=== PATIENT | female | born 1935 | race Caucasian/White ===

== ENCOUNTER → 2016-11-13 | Outpatient (CLI) | payer OTHER ==
[~2016-11-13] MED LIST: ASPCH81; ATEN-173 PO; DILT120C68 PO; PRAV20TA PO; SYN50 PO; WARF5TAB90 PO
--- NOTE | 2016-11-13 10:32 | DIAGNOSTIC IMAGING REPORT ---
CHEST 2 VIEWS ROUTINE CLINICAL HISTORY: Left lower lobe pulmonary nodule COMPARISON STUDY: 08/06/2016 FINDINGS: The heart is borderline enlarged. There is no failure. There is no focal pulmonary consolidation. The previously queried nodule at the level the left cardiophrenic angle is not visualized.[ IMPRESSION: No active disease in the chest. Electronically signed by: Shant Espinoza M.D. 11/13/2016 10:31 AM Dictated Date/Time: 11/13/2016 10:30 AM
== END | disposition home or self-care (01) ==
LOC: C.RAD 10:07
PROVIDERS: ATTEND Family Medicine
DX: R93.8 Abnormal findings on diagnostic imaging of other specified body structures (principal)

== ENCOUNTER → 2017-02-27 | Outpatient (CLI) | payer OTHER ==
[~2017-02-27] MED LIST changes: +ASPI81TA28 PO; +ATEN25TA PO; +LEVO50TA PO; +TNR25 PO; -WARF5TAB90 PO
== END | disposition home or self-care (01) ==
LOC: C.MAMM 09:07
PROVIDERS: ATTEND Physician Assistant
DX: N18.9 Chronic kidney disease, unspecified (principal); M85.851 Other specified disorders of bone density and structure, right thigh; M85.852 Other specified disorders of bone density and structure, left thigh

== ENCOUNTER → 2017-03-05 | Outpatient (CLI) | payer OTHER ==
[~2017-03-05] MED LIST changes: -TNR25 PO
--- NOTE | 2017-03-05 16:08 | MAMMOGRAPHY REPORT ---
BILATERAL DIGITAL SCREENING MAMMOGRAM TOMOSYNTHESIS WITH CAD: 03/05/2017 CLINICAL HISTORY: Asymptomatic. Personal history of breast cancer. TECHNIQUE: Breast tomosynthesis in addition to standard 2D mammography was performed. Current study was also evaluated with a Computer Aided Detection (CAD) system. COMPARISON: Comparison is made to exams dated: 11/13/2015 mammogram, 08/22/2014 mammogram, 08/20/2013 mammogram, 08/10/2012 mammogram, 02/04/2012 mammogram, and 07/16/2011 mammogram - [facility]. BREAST COMPOSITION: The tissue of both breasts is heterogeneously dense, which may obscure small mas ses. FINDINGS: No suspicious masses, calcifications, or areas of architectural distortion are noted in ei ther breast. There has been no significant interval change compared to prior exams. There are stable postsurgical changes in the right upper outer quadrant from prior lumpectomy, including stable densi ty, architectural distortion, and surgical clips at the lumpectomy bed. A linear scar marker denotes a scar on the right upper outer breast. Bilateral benign-appearing calcifications are not significa ntly changed. Small round circumscribed benign-appearing mass in the left upper outer quadrant is pr ogressively smaller compared to prior exams, and is therefore benign. IMPRESSION: ACR BI-RADS CATEGORY 2: BENIGN There is no mammographic evidence of malignancy. A 1 year screening mammogram is recommended. The pa tient will receive written notification of the results. Approximately 10% of breast cancers are not detected with mammography. A negative mammographic report should not delay biopsy if a clinically suggestive mass is present. Tabatha Palomares M.D. /:03/05/2017 15:12:38 Offset Printing Operator: Becky MONAHAN)(M), [facility] letter sent: Normal 1/2 BI-RADS Code: ACR BI-RADS Category 2: Benign
== END | disposition home or self-care (01) ==
LOC: C.MAMM 13:34
PROVIDERS: ATTEND Physician Assistant
DX: Z12.31 Encounter for screening mammogram for malignant neoplasm of breast (principal); Z08 Encounter for follow-up examination after completed treatment for malignant neoplasm; Z85.3 Personal history of malignant neoplasm of breast

== ENCOUNTER 2017-06-18 05:16 | Inpatient (IN) | payer OTHER ==
[~2017-06-18] VITALS: Ht 154.9 cm; Wt 62.1 kg
[~2017-06-18 05:16] MED LIST changes: -ASPI81TA28 PO; -ATEN25TA PO; -LEVO50TA PO
[2017-06-18] MEDS ORDERED: SODIUM CHLORIDE 0.9% 1000ML 1,000 ML IV STA (05:35)
[2017-06-18] MEDS ORDERED: LEVO50TA PO (05:50)
[2017-06-18] MEDS ORDERED: ASPI81TA28 PO (05:50)
[2017-06-18] MEDS ORDERED: ATEN25TA PO (05:50)
[2017-06-18 05:55] LABS: BASO % 0.3 %; BASO ABS # 0.03 K/uL (0-0.2); COMPLETE YES; HEMATOCRIT 45.3 % (37-47); IG% 0.2 %; LYMPH % 26.7 %; LYMPH ABS # 3.02 K/uL (1.2-3.4); MEAN CELL VOLUME 93.4 fL (80-100); MEAN CORPUSCULAR HEMOGLOBIN 31.1 pg (25-34); MEAN CORPUSCULAR HGB CONC 33.3 g/dl (32-36); MEAN PLATELET VOLUME 10.4 fL (7.4-10.4); MONO % 10.7 %; NEUT % 61.1 %; PLATELET COUNT 255 K/uL (130-400); RED BLOOD COUNT 4.85 M/uL (4.2-5.4); WHITE BLOOD COUNT 11.29 K/uL (4.8-10.8)
[2017-06-18 06:04] LABS: INR 1.1 (0.9-1.1); PROTHROMBIN TIME (PATIENT) 11.3 SECONDS (9.0-12.0)
[2017-06-18 06:11] LABS: BUN/CREATININE RATIO 11.2 (10-20); CALCIUM 9.2 mg/dl (8.5-10.1); CREATININE 0.99 mg/dl (0.60-1.20); MAGNESIUM 2.4 mg/dl (1.8-2.4); POTASSIUM 4.5 mmol/L (3.5-5.1)
[2017-06-18 06:21] LABS: ALB/GLOB RATIO 0.7 (0.9-2); THYROID STIMULATING HORMONE 2.19 uIu/ml (0.300-4.500)
--- NOTE | 2017-06-18 07:28 | DIAGNOSTIC IMAGING REPORT ---
CHEST ONE VIEW PORTABLE HISTORY: palpitations COMPARISON: None. FINDINGS: The lungs are clear. Cardiac silhouette is normal in size. No pleural effusions. No pneumothorax. IMPRESSION: No acute process. Electronically signed by: Sebastien Gould M.D. 06/18/2017 7:26 AM Dictated Date/Time: 06/18/2017 7:24 AM
[2017-06-18 08:17] VITALS: O2SAT 95; Ht 154.9 cm; Wt 62.1 kg
[2017-06-18] MEDS ORDERED: MAGNESIUM HYDROXIDE SUSP 30 ML UDC PO PRN (08:30)
[2017-06-18] MEDS ORDERED: POLYETHYLENE (MIRALAX) 17 GM PACK PO PRN (08:30)
[2017-06-18] MEDS ORDERED: ONDANSETRON INJ 2 MG/ML 2 ML VIAL IV PRN (08:30)
[2017-06-18] MEDS ORDERED: ZOLPIDEM TARTRATE 5 MG TAB PO PRN (08:30)
[2017-06-18] MEDS ORDERED: ALUMINUM/MAGNESIUM/SIMETH (MAALOX MAX) 30 ML UDC PO PRN (08:30)
--- NOTE | 2017-06-18 08:32 | History and Physical ---
History & Physical Date of Service Jun 18, 2017. History & Physical tachy [id number]
[2017-06-18] MEDS: LEVOTHYROXINE 50 MCG TAB PO SCH (09:00)
[2017-06-18] MEDS: PRAVASTATIN SOD 20 MG TAB PO SCH (09:00)
--- NOTE | 2017-06-18 09:01 | HISTORY & PHYSICAL EXAMINATION ---
DATE OF ADMISSION: 06/18/2017 This is level 2 inpatient admission, 29 minutes. CHIEF COMPLAINT: Palpitation and dyspnea on exertion. HISTORY OF PRESENT ILLNESS: The patient is an 82-year-old white female with a significant past medical history of paroxysmal atrial fibrillations, mitral valve prolapse, hypothyroidism, dyslipidemia, coming to the hospital Emergency Department because of the above chief complaint. She reported has persistent rapid heart beating from last night at 7:00 p.m. It was started while she was watching TV. She had the problem before. History of atrial fibrillations. She had echocardiogram and Holter monitor evaluations with grades 1 6 tutor, Dr. Sin. The patient reported has shortness of breath with exertion for a couple weeks. Some nausea, lightheadedness and mild dizzy. For now, she does not have any dizziness or chest pain, no shortness of breath. No racing heart for now. In the Emergency Room, she was found heart rate sometimes getting higher. The highest was up to 152. The lowest down to the 48. She was found to have possible tachybrady syndrome. Hospitalist requested to see the patient. The patient has elevated troponin 0.41 as well. The patient denied fever or chills. Denied cough, sputum, shortness of breath. Denied chest pain. Denied lower extremity swellings. Denied nausea, vomiting, abdominal pain, diarrhea, or constipation. Denied dysuria, urgency and frequencies. Denied skin rashes. ALLERGIES: ALLERGY TO CODEINE AND EPINEPHRINE. PAST MEDICAL HISTORY: Like I mentioned in the above, paroxysmal atrial fibrillations, mitral valve prolapse, dyslipidemia, hypothyroidism. FAMILY HISTORY: Include heart disease. SOCIAL HISTORY: Never smoked. Denied alcohol abuse disorder, denied illicit drug abuse. The patient is and lives with family. Retired. REVIEW OF SYSTEMS: Please see HPI, otherwise 14 points organized system review were negative. MEDICATIONS: Taking at home include aspirin 81 mg p.o. daily, levothyroxine 50 mcg p.o. daily, pravastatin 20 mg p.o. daily, atenolol 12.5 mg p.o. p.r.n. for increased heart rate. PHYSICAL EXAMINATION: VITAL SIGNS: Temperature is 36.5, pulse highest was up to 152, lowest at 48. Respiratory rate was 20. Blood pressure was 98/75. Pulse ox was 99% in room air. GENERAL: The patient is a white female, awake, alert and orientated, pleasant, conversational, follows all commands. HEAD: Normocephalic. EYES: Pupils equal, round responds to light. EARS: Ear was normal. NOSE: Normal. NECK: Supple. Thyroid no enlargement. Trachea midline. HEART: Regular rhythm but is bradycardia now. Heart rate at 42. No murmur. LUNGS: Decreased breathing sounds. There was no wheezing, rhonchi or crackles. ABDOMEN: Soft, nontender. Bowel sound was positive. GENITOURINARY AND RECTAL: Deferred. BILATERAL LOWER EXTREMITIES: No swelling. Homans sign was negative. Calf was nontender. There was no clubbing, no cyanosis. SKIN: Has no rashes. PSYCHIATRY EVALUATION: No depression or anxiety. LABORATORY STUDIES: Which was done in the Emergency Room which include WBC 11.2, hemoglobin 15, platelet 255. Sodium 139, potassium 4.5, BUN 11, creatinine 0.9. Blood glucose 119. IMAGING STUDIES: Chest x-ray no cardiomegaly, no effusions, no pulmonary edema. EKG: Heart rate was 65. Nonspecific ST changes, has PVC. ASSESSMENT AND PLAN: An 82-year-old white female with the problems below: 1. Tachycardia, atrial fibrillation and bradycardia, possible tachybrady syndrome. 2. History of paroxysmal atrial fibrillation. 3. Elevated troponin likely from demanding ischemia. 4. History of hypothyroidism. 5. History of dyslipidemia. PLAN: We will be admitted to hospital tele monitor. I discussed with Dr. Mack. Do not need anticoagulation now, okay n.p.o. midnight, may plan pacemaker tomorrow. Will continue to follow up cardiac enzymes, troponin for 1 set more, tele monitoring, hold beta daisy, continue home medication include aspirin, levothyroxine and dyslipidemia. Because of possible procedure tomorrow I will hold aspirin as well. TSH was checked which is in normal range 2.19. PT/INR was checked was 07/09.1. I discussed with patient and family about the care plan. GI and DVT prophylaxis is ordered. Discussed with the code status, PATIENT WANTS TO BE FULL CODE, but if has no hope she does not want to have prolonged life care. MTDD
[2017-06-18 09:38] LABS: MANUAL MICROSCOPIC REQUIRED? NO; REVIEW REQ? NO; URINE APPEARANCE CLEAR (CLEAR); URINE BILIRUBIN NEG (NEG); URINE COLOR YELLOW; URINE EPITHELIAL CELL AUTO >30 /lpf (0-5); URINE NITRITE NEG (NEG); URINE PH 7.5 (4.5-7.5); UROBILINOGEN NEG (NEG); ZZUR CULT IF INDIC CLEAN CATCH NO
--- NOTE | 2017-06-18 10:59 | Cardiology Consultation ---
Cardiology Consultation Date of Consultation: Jun 18, 2017. Requesting Physician: Juana Reason for Consultation: tachycardia History of Present Illness Patient is an 82-year-old woman with a history of atrial fibrillation and SVT who presented to [facility] Emergency room early this morning with symptoms of tachycardia and dizziness. Patient states that for nearly 8 hours she noticed her heart racing. This is generally associated with a sense of dizziness and occasionally presyncope. Due to the persistent nature of the symptoms she presented for evaluation was noted to be tachycardic. She did have resolution of her tachycardia emergency room with some additional dizziness and presyncope. Patient has been having fairly frequent episodes of this nature recently. He states that due to mitral valve prolapse she has had symptoms of this nature since she was a teenager. Generally speaking they occur several times per year and her very brief in duration. More recently they have become more frequent and sustained. An episode lasting 8 hours such as last evening is the longer she can recall. She reports some associated tightness in her throat as if she was breathing cold air. She denies any actual chest discomfort. She denies significant dyspnea or breathing trouble. She was admitted to [facility] in May of 2017 after suffering an episode of syncope. This occurred while she was standing in her son's kitchen. She does recall a sense tachycardia leading up to that event and her evaluation at that facility did reveal episodes of atrial fibrillation in addition to baseline bradycardia. General she is an active individual. She is accustomed performing routine housework and gardening. She generally denies symptoms of dizziness or lightheadedness in the absence of the tachycardia. She denies symptoms of chest pain or dyspnea. She has no new exertional limitations. Past Medical/Surgical History Paroxysmal atrial fibrillation Supraventricular tachycardia Breast cancer Hyperlipidemia Hypertension Hypothyroidism Mitral regurgitation Syncope Past surgical history Partial colectomy Family History Heart disease Noncontributory Social History Smoking Status: Never Smoker History of Alcohol Use: No Currently lives independently. of metastatic melanoma Review of Systems A recent gastrointestinal symptoms. No constitutional symptoms such as fevers or chills. No recent viral illnesses. All Other Systems: Reviewed and Negative Allergies Coded Allergies: Codeine (Verified Allergy, Intermediate, NAUSEA/VOMITING, 06/18/17) Epinephrine (Verified Allergy, Unknown, 06/18/17) Medications Current Inpatient Medications Medications (Trade) Dose Ordered Sig/Sal Route Start Time Stop Time Status Last Admin Dose Admin Sodium Chloride 1,000 ml @ 125 mls/hr Q8H STAT IV 06/18/17 05:35 06/18/17 13:34 06/18/17 05:35 125 MLS/HR Heparin Sodium (Porcine) (Heparin Sq 5000 Unit/0.5ml) 5,000 unit Q12 SQ 06/18/17 09:00 07/18/17 08:59 UNV Acetaminophen (Tylenol Tab) 650 mg Q4H PRN PO 06/18/17 08:30 07/18/17 08:29 Al Hydrox/Mg Hydrox/Simethicone (Maalox Max Susp) 15 ml Q4H PRN PO 06/18/17 08:30 07/18/17 08:29 Magnesium Hydroxide (Milk Of Magnesia Susp) 30 ml Q12H PRN PO 06/18/17 08:30 07/18/17 08:29 Zolpidem Tartrate (Ambien Tab) 5 mg HSZ PRN PO 06/18/17 08:30 07/18/17 08:29 Ondansetron HCl (Zofran Inj) 4 mg Q6H PRN IV 06/18/17 08:30 07/18/17 08:29 Polyethylene (Miralax Powder Packet) 17 gm DAILY PRN PO 06/18/17 08:30 07/18/17 08:29 Levothyroxine Sodium (Synthroid Tab) 50 mcg DAILYBB PO 06/18/17 09:00 07/18/17 08:59 Pravastatin Sodium (Pravachol Tab) 20 mg DAILY PO 06/18/17 09:00 07/18/17 08:59 Physical Exam Vital Signs Past 12 Hours Date Time Temp Pulse Resp B/P (MAP) Pulse Ox O2 Delivery O2 Flow Rate FiO2 06/18/17 09:46 45 06/18/17 08:46 43 06/18/17 08:17 95 Room Air 06/18/17 08:08 45 20 133/70 95 Room Air 06/18/17 07:00 56 20 115/80 94 Room Air 06/18/17 06:12 48 06/18/17 06:05 51 06/18/17 05:33 152 06/18/17 05:33 67 06/18/17 05:29 146 06/18/17 05:21 36.5 144 20 98/75 99 Room Air The patient is alert and oriented. Mood and affect appeared normal. He answered all questions appropriately. HEENT: Pupils are equal and reactive to light and accommodation. Extraocular movements are intact. The sclerae are anicteric. Neuro: Cranial nerves intact Neck: Patient's neck is supple. He has palpable carotid pulses bilaterally without bruits on auscultation. There is no evidence of jugular venous distention. The thyroid is not enlarged. Lungs: Clear to auscultation bilaterally. He has good air movement without use of accessory muscles. No rales wheezes or rhonchi. Cardiac: Heart demonstrates a regular rate and rhythm. Normal S1 and S2. Soft holosystolic murmur. Pulses: The patient has palpable radial pulses bilaterally that are equal in intensity Extremities: There was no evidence of hypoperfusion. There is no cyanosis or clubbing. There is no edema. Skin: I did not appreciate any rashes on examination today. Data Laboratory Results: Last 24 Hours Test 06/18/17 05:35 06/18/17 09:20 White Blood Count 11.29 K/uL Red Blood Count 4.85 M/uL Hemoglobin 15.1 g/dL Hematocrit 45.3 % Mean Corpuscular Volume 93.4 fL Mean Corpuscular Hemoglobin 31.1 pg Mean Corpuscular Hemoglobin Concent 33.3 g/dl Platelet Count 255 K/uL Mean Platelet Volume 10.4 fL Neutrophils (%) (Auto) 61.1 % Lymphocytes (%) (Auto) 26.7 % Monocytes (%) (Auto) 10.7 % Eosinophils (%) (Auto) 1.0 % Basophils (%) (Auto) 0.3 % Neutrophils # (Auto) 6.90 K/uL Lymphocytes # (Auto) 3.02 K/uL Monocytes # (Auto) 1.21 K/uL Eosinophils # (Auto) 0.11 K/uL Basophils # (Auto) 0.03 K/uL RDW Standard Deviation 45.5 fL RDW Coefficient of Variation 13.4 % Immature Granulocyte % (Auto) 0.2 % Immature Granulocyte # (Auto) 0.02 K/uL Prothrombin Time 11.3 SECONDS Prothromb Time International Ratio 1.1 Sodium Level 139 mmol/L Potassium Level 4.5 mmol/L Chloride Level 107 mmol/L Carbon Dioxide Level 25 mmol/L Anion Gap 7.0 mmol/L Blood Urea Nitrogen 11 mg/dl Creatinine 0.99 mg/dl Est Creatinine Clear Calc Drug Dose 38.5 ml/min Estimated GFR () 61.9 Estimated GFR (Non- 53.4 BUN/Creatinine Ratio 11.2 Random Glucose 113 mg/dl Calcium Level 9.2 mg/dl Phosphorus Level 3.2 mg/dl Magnesium Level 2.4 mg/dl Total Bilirubin 0.6 mg/dl Aspartate Amino Transf (AST/SGOT) 21 U/L Alanine Aminotransferase (ALT/SGPT) 17 U/L Alkaline Phosphatase 73 U/L Troponin I 0.411 ng/ml Total Protein 8.1 gm/dl Albumin 3.4 gm/dl Globulin 4.7 gm/dl Albumin/Globulin Ratio 0.7 Thyroid Stimulating Hormone (TSH) 2.190 uIu/ml Chemistry Specimen Hemolysis Urine Color YELLOW Urine Appearance CLEAR Urine pH 7.5 Urine Specific Mio 1.010 Urine Protein NEG Urine Glucose (UA) NEG Urine Ketones NEG Urine Occult Blood NEG Urine Nitrite NEG Urine Bilirubin NEG Urine Urobilinogen NEG Urine Leukocyte Esterase MODERATE Urine WBC (Auto) 1-5 /hpf Urine RBC (Auto) 0-4 /hpf Urine Hyaline Casts (Auto) 0 /lpf Urine Epithelial Cells (Auto) >30 /lpf Urine Bacteria (Auto) NEG Imaging: Single-view chest x-ray did not reveal any acute cardiopulmonary process EKG: Initial EKG revealed regular SVT. Second EKG revealed sinus bradycardia Telemetry reviewed: Telemetry revealed initial SVT which terminated and was re- initiated. The remaining recordings appear to be sinus bradycardia with occasional ectopy Echocardiogram performed on 06/12/2017: Preserved LV systolic function. Mild mitral regurgitation. 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 Were this the only arrhythmia she would be a good candidate for catheter based therapy as a success rate for elimination is quite high. However, she also has documented atrial fibrillation at times and will need medical therapy for atrial fibrillation regardless of whether she continues to have SVT. Her treatment is complicated by her baseline bradycardia. Her symptoms are most severe and her syncopal episode is most likely related to a conversion pause. Whether this was related to SVT or atrial fibrillation is unknown. I think her treatment would be easier if she had a pacemaker. This would allow us to reinitiate her prior rate control agents without concern regarding bradycardia additional episodes of syncope. With more aggressive medical therapy she may in fact not have any additional episodes of SVT. Should she continue to have SVT which is quite bothersome and does not respond to medical therapy catheter based treatment can be entertained at that time. I did discuss the risks benefits and alternatives to a permanent pacemaker. Very likely we will proceed during this hospitalization. 2. SVT: This is very regular and likely reentrant. As noted above I think we can proceed with pacemaker and medical therapy at this time. Catheter based therapy can be reserved for recurrence once on medical therapy 3. Atrial fibrillation: She has a known history of atrial fibrillation. Based on her risk factor she would be a good candidate for systemic anticoagulation. I think we will proceed with implant as discussed above and consider initiating anticoagulant therapy once she recovers from the procedure. 4. Mitral regurgitation: Reportedly mild to moderate in the past. Recent echocardiogram did not reveal any worsening. Preserved LV systolic function.
[2017-06-18 16:24] VITALS: BP 98/55; PULSE 46; TEMP 36.3; O2SAT 97
[2017-06-18 19:48] VITALS: BP 128/64; PULSE 55; TEMP 36.3; O2SAT 98
[2017-06-18] MEDS: HEPARIN SOD 5000 UNIT/0.5 ML CARP SQ SCH (21:00)
[2017-06-18 23:52] VITALS: BP 151/63; PULSE 55; TEMP 36.4; O2SAT 99
[2017-06-19] VITALS (7 sets, daily range): BP systolic 109–122; BP diastolic 57–75; PULSE 54–64; TEMP 36.3–36.4; O2SAT 96–100
[2017-06-19] MEDS ORDERED: CEFAZOLIN SOD 1000MG/55 ML D5W IV SCH (06:00)
[2017-06-19] MEDS: LEVOTHYROXINE 50 MCG TAB PO SCH (06:15)
[2017-06-19 07:11] LABS: BUN/CREATININE RATIO 15.9 (10-20); CALCIUM 8.6 mg/dl (8.5-10.1); CREATININE 0.81 mg/dl (0.60-1.20); MAGNESIUM 2.2 mg/dl (1.8-2.4); POTASSIUM 3.8 mmol/L (3.5-5.1)
[2017-06-19 07:17] LABS: CHOLESTEROL/HDL RATIO 3.2; PHOSPHORUS 3.1 mg/dl (2.5-4.9)
[2017-06-19] MEDS ORDERED: LIDOCAINE HCL 1% 20 ML VIAL ONE (07:21)
[2017-06-19] MEDS ORDERED: FENTANYL CITRATE INJ 50 MCG/1 ML 2 ML VIAL ONE (07:21)
[2017-06-19] MEDS ORDERED: MIDAZOLAM HCL 5 MG/ML 1 ML VIAL ONE (07:21)
[2017-06-19] MEDS ORDERED: BACITRACIN 50000 UNIT VIAL ONE (07:21)
[2017-06-19] MEDS ORDERED: BUPIVACAINE 0.5 % 5 MG/1 ML MPF 30ML VIAL ONE (07:21)
[2017-06-19] MEDS ORDERED: CEFAZOLIN SOD 1 GM VIAL ONE (07:43)
[2017-06-19] MEDS ORDERED: WATER, STERILE FOR INJ 10 ML VIAL ONE (07:46)
--- NOTE | 2017-06-19 08:11 | Procedure Note ---
Pre-Mod Sedation Assessment General Date of Moderate Sedation: Jun 19, 2017. Vital Signs: Vital Signs Past 12 Hours Date Time Temp Pulse Resp B/P (MAP) Pulse Ox O2 Delivery O2 Flow Rate FiO2 06/19/17 07:59 36.4 54 18 120/65 (83) 96 Room Air 06/19/17 06:19 36.3 60 19 117/57 98 Room Air 06/19/17 04:00 Room Air 06/19/17 03:33 36.3 60 19 117/57 (77) 98 Room Air 06/18/17 23:59 Room Air 06/18/17 23:52 36.4 55 16 151/63 (92) 99 Room Air Review Airway Class: II Pre-Sedation Airway Assessment Oral Cavity: WNL Able to Visualize Vocal Cords: No Short Thick Neck: No Hx of Sleep Apnea: No Smoking Status: Never Smoker Mallampati Classification: Class II ASA Classification: Class III Procedure Planning Contraindications-for Mod Sed: None Yes Notes The planned sedation has been discussed with the patient and consent obtained. I have identified the patient, determined the appropriateness of sedation and have assessed the patient immediately prior to the procedure. All medicine(s) and interventions are by my order.
[2017-06-19] MEDS: PRAVASTATIN SOD 20 MG TAB PO SCH (09:21)
[2017-06-19] MEDS: HEPARIN SOD 5000 UNIT/0.5 ML CARP SQ SCH ×2 (09:23→20:37)
--- NOTE | 2017-06-19 09:44 | Clinical Documentation Query ---
CLINICAL DOCUMENTATION QUERY Dr. JOYA, In your clinical opinion is this patient being managed for: ( x ) possible Type II IA (NSTEMI) due to demand ischemia ( ) Not Agree ( ) Other explanation of clinical findings (Please Explain) ( ) Unable to determine (Please Define) ( ) Need to Discuss The medical record reflects the following clinical findings, treatment, and risk factors. Clinical Indicators: 82 yo female presenting with palpitations and STRAUSS. Trops 0.411/0.806. EKG showed ST and T wave abnormality/SVT Treatment:tele, cardiology consult, pacemaker placement, serial trops Risk Factors: tachy-marcela syndrome, SVT Please clarify and document your clinical opinion in the progress notes and discharge summary. Terms such as "probable", "suspected", "likely", "questionable", "possible", or "still to be ruled out" are acceptable. IF IN AGREEMENT, YOU MUST DOCUMENT ABOVE DIAGNOSTIC STATEMENT IN DAILY PROGRESS NOTES AND DISCHARGE SUMMARY. This document is not part of the patient's record. Thank You, Briseida Sandoval, JAG [phone]
[2017-06-19 12:53] LABS: LYME DISEASE AB IGG NEG (NEG); LYME DISEASE AB IGM NEG (NEG)
--- NOTE | 2017-06-19 12:54 | Progress Note ---
Subjective Date of Service: Jun 19, 2017. Subjective Pt evaluation today including: conversation w/ patient, physical exam, chart review, lab review, review of studies, conversation w/ erp consultant, review of inpatient medication list After pacemaker, doing well, no complaining, Problem List Medical Problems: (1) Atrial fibrillation Status: Acute Review of Systems Constitutional: No fever, No chills, No sweats, No weight loss, No weakness, No fatigue, No problem reported Eyes: No worsening of vision, No eye pain, No redness, No discharge, No diplopia ENT: No hearing loss, No unusual epistaxis, No nasal symptoms, No sore throat, No tinnitus, No dental problems, No trouble swallowing Respiratory: No cough, No sputum, No wheezing, No shortness of breath, No dyspnea on exertion, No dyspnea at rest, No hemoptysis Cardiac: No chest pain, No orthopnea, No PND, No edema, No claudication, No palpitations Abdomen: No pain, No nausea, No vomiting, No diarrhea, No constipation Musculoskeletal: No joint pain, No muscle pain, No swelling, No calf pain Female : No dysuria, No urinary frequency, No hematuria, No incontinence, No abnormal vaginal bleeding, No vaginal discharge Neurologic: No memory loss, No paralysis, No weakness, No numbness/tingling, No vertigo, No balance problems Psychiatric: No depression symptoms, No anhedonism, No anxiety, No insomnia, No substance abuse Heme: No abnormal bleeding/bruising, No clotting problems, No swollen lymph nodes, No night sweats Endo: No fatigue, No excessive thirst, No excessive urination Skin: No rash, No itch, No new/changing skin lesions, No color change, No bleeding Objective Vital Signs Date Time Temp Pulse Resp B/P (MAP) Pulse Ox O2 Delivery O2 Flow Rate FiO2 06/19/17 12:00 Room Air 06/19/17 11:06 36.4 64 18 122/65 (84) 96 Room Air 06/19/17 09:23 64 16 119/75 (90) 96 Room Air 06/19/17 09:03 60 16 110/64 (79) 98 Nasal Cannula 3 06/19/17 08:50 60 16 116/65 (82) 98 Nasal Cannula 3 06/19/17 08:00 Room Air 06/19/17 07:59 36.4 54 18 120/65 (83) 96 Room Air 06/19/17 06:19 36.3 60 19 117/57 98 Room Air 06/19/17 04:00 Room Air 06/19/17 03:33 36.3 60 19 117/57 (77) 98 Room Air 06/18/17 23:59 Room Air 06/18/17 23:52 36.4 55 16 151/63 (92) 99 Room Air 06/18/17 20:00 Room Air 06/18/17 19:48 36.3 55 16 128/64 (85) 98 Room Air 06/18/17 16:24 36.3 46 17 98/55 (69) 97 Room Air 06/18/17 16:00 Room Air Physical Exam General Appearance: WD/WN, no apparent distress, + thin, + pertinent finding ( frail, but pleasant and conversational) Eyes: normal inspection, PERRL, EOMI, sclerae normal ENT: normal ENT inspection, hearing grossly normal, pharynx normal Neck: supple, no adenopathy, thyroid normal, no JVD, no carotid bruits, trachea midline Respiratory/Chest: chest non-tender, normal breath sounds, no respiratory distress, no accessory muscle use, + decreased breath sounds Cardiovascular: regular rate, rhythm, no edema, no gallop, no JVD, no murmur Abdomen: normal bowel sounds, non tender, soft, no organomegaly, no pulsatile mass Extremities: normal range of motion, non-tender, normal inspection, no pedal edema, no calf tenderness, normal capillary refill, pelvis stable Neurologic/Psychiatric: 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 as tested, no motor/sensory deficits, alert, normal mood/affect, oriented x 3 Skin: normal color, warm/dry, no rash Lymphatic: no adenopathy Laboratory Results Last 24 Hours Test 06/18/17 14:03 06/19/17 06:25 06/19/17 07:15 06/19/17 10:15 Creatine Kinase MB 5.9 ng/ml 3.5 ng/ml Creatine Kinase MB Ratio Troponin I 0.806 ng/ml 0.368 ng/ml Sodium Level 141 mmol/L Potassium Level 3.8 mmol/L Chloride Level 110 mmol/L Carbon Dioxide Level 25 mmol/L Anion Gap 6.0 mmol/L Blood Urea Nitrogen 13 mg/dl Creatinine 0.81 mg/dl Est Creatinine Clear Calc Drug Dose 46.1 ml/min Estimated GFR () 78.9 Estimated GFR (Non- 68.1 BUN/Creatinine Ratio 15.9 Random Glucose 80 mg/dl Calcium Level 8.6 mg/dl Phosphorus Level 3.1 mg/dl Magnesium Level 2.2 mg/dl Triglycerides Level 96 mg/dl Cholesterol Level 160 mg/dl HDL Cholesterol 50 mg/dl LDL Cholesterol, Calculated 91 mg/dl VLDL Cholesterol, Calculated 19 mg/dl Cholesterol/HDL Ratio 3.2 Assessment and Plan 82-year-old white female admitted on 06/18/2017 with the problems below: Tachycardia, atrial fibrillation and bradycardia, 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 FULL CODE, but if has no hope she does not want to have prolonged life care. Continued [facility] stay due to: multiple IV medications needed Discharge planning: home
[2017-06-19] MEDS: ACETAMINOPHEN 325 MG TAB PO PRN (15:39)
[2017-06-19] MEDS: CEFAZOLIN IV 1,000 MG in DEXTROSE 5% 50ML 50 ML IV SCH (15:39)
[2017-06-19] MEDS ORDERED: OXYCODONE HCL IR 5 MG TAB (IMMEDIATE RELEASE) PO PRN (16:45)
--- NOTE | 2017-06-19 17:40 | Procedure Note ---
Procedure Note Date of Service Jun 19, 2017. Procedure Note Procedure performed: Implantation of dual-chamber pacemaker Staff skin installer: Fidel Christina MD Indication: The patient is an 82-year-old woman with a history of the dizziness and syncope. She was admitted [facility] recently with an episode of sustained tachycardia and conversion pauses. She is known to have atrial fibrillation and SVT with rapid rates. She also has resting bradycardia. She is therefore felt to be a good candidate for pacemaker due to symptomatic non reversible sinus node dysfunction. This is otherwise known as tachy-marcela syndrome. The patient was informed of the risks benefits and alternatives to the intended procedure and she wished to proceed. She was taken to the electrophysiology suite in a fasting state. A preoperative antibiotic had been administered. The patient was monitored electrocardiographically throughout today's procedure and conscious sedation was administered per protocol. The left upper pectoral area is prepped and draped in usual sterile fashion. This area was anesthetized using subcutaneous menstruation of a xylocaine solution. An incision was made at this site and carried down to the prepectoralis fascia using sharp dissection. Electrocautery was also employed for dissection as well as for hemostasis. A device pocket was fashioned tissues above the pectoralis muscle. Subsequent to this maneuver the left axillary vein was accessed using modified Seldinger technique. Sheaths were placed over guidewires at this site and used to facilitate passage of the pacing leads to the respective chambers under fluoroscopic guidance. This included right atrial and right ventricular leads. Adequate sensing and threshold parameters were obtained prior to Active fixation of the leads to the endocardial surface. The proximal portion leads were then sutured the prepectoral fascia using nonabsorbable suture. The device pocket was irrigated with antibiotic solution. The leads were then attached to the device. The device and leads were then placed in the pocket and pocket was closed in 3 layers of absorbable suture. Steri-Strips and sterile dressing were applied. The device was tested noninvasively prior to conclusion the procedure. The patient tolerated procedure well there no immediate complications. Equipment used: New pulse generator: Senior Technical Support Analyst [employer]. Model number: [id number] Right atrial lead: Senior Technical Support Analyst [employer]. Model number: 5076 serial number [id number] Right ventricular lead: Senior Technical Support Analyst [employer]. Model number: 5076. serial number: [id number] Measured data: Right atrial lead: P-waves measured 3.8 mV. Pacing threshold was 1.75 volts at 0.4 milliseconds with a pacing impedance of 673 Ohms Right ventricular lead: R-waves measured 8.2 mV. Pacing threshold was 0.7 volts at 0.4 milliseconds with a pacing impedance of 890 Ohms Impression: Successful implantation of dual-chamber permanent pacemaker
[2017-06-20 00:04] VITALS: BP 151/74; PULSE 61; TEMP 36.5; O2SAT 97
[2017-06-20] MEDS: CEFAZOLIN IV 1,000 MG in DEXTROSE 5% 50ML 50 ML IV SCH (00:09)
[2017-06-20] MEDS: ACETAMINOPHEN 325 MG TAB PO PRN ×2 (00:11→12:37)
[2017-06-20 04:25] VITALS: BP 131/69; PULSE 60; TEMP 36.4; O2SAT 98
[2017-06-20] MEDS: LEVOTHYROXINE 50 MCG TAB PO SCH (05:55)
--- NOTE | 2017-06-20 07:21 | DIAGNOSTIC IMAGING REPORT ---
CHEST 2 VIEWS ROUTINE HISTORY: EXACT TIME ORDERED Evaluate for pneumothorax and lead placement COMPARISON: Chest 06/18/2017. FINDINGS: Interval placement of a left-sided dual-chamber pacemaker. The leads appear intact. No pneumothorax. Emphysema and mild cardiomegaly persists. No pleural effusions. No new focal lung consolidations. IMPRESSION: Interval placement of a left-sided dual-chamber pacemaker. No pneumothorax. Electronically signed by: Sebastien Gould M.D. 06/20/2017 7:20 AM Dictated Date/Time: 06/20/2017 7:19 AM
--- NOTE | 2017-06-20 07:44 | Clinical Documentation Query ---
CLINICAL DOCUMENTATION QUERY Dr. JOYA, In your clinical opinion is this patient being managed for: ( x ) possible Type II PR (NSTEMI) due to demand ischemia ( ) Not Agree ( ) Other explanation of clinical findings (Please Explain) ( ) Unable to determine (Please Define) ( ) Need to Discuss The medical record reflects the following clinical findings, treatment, and risk factors. Clinical Indicators: 82 yo female presenting with palpitations and STRAUSS. Trops 0.411/0.806. EKG showed ST and T wave abnormality/SVT Treatment:tele, cardiology consult, pacemaker placement, serial trops Risk Factors: tachy-marcela syndrome, SVT Please clarify and document your clinical opinion in the progress notes and discharge summary. Terms such as "probable", "suspected", "likely", "questionable", "possible", or "still to be ruled out" are acceptable. IF IN AGREEMENT, YOU MUST DOCUMENT ABOVE DIAGNOSTIC STATEMENT IN DAILY PROGRESS NOTES AND DISCHARGE SUMMARY. This document is not part of the patient's record. Thank You, Briseida Sandoval, JAG [phone]
[2017-06-20] MEDS: PRAVASTATIN SOD 20 MG TAB PO SCH (07:56)
[2017-06-20] MEDS: HEPARIN SOD 5000 UNIT/0.5 ML CARP SQ SCH (08:00)
[2017-06-20 08:09] VITALS: BP 145/87; PULSE 61; TEMP 36.4; O2SAT 98
[2017-06-20 09:23] LABS: BUN/CREATININE RATIO 12.4 (10-20); CALCIUM 8.6 mg/dl (8.5-10.1); CREATININE 0.88 mg/dl (0.60-1.20); MAGNESIUM 2.3 mg/dl (1.8-2.4); PHOSPHORUS 3.2 mg/dl (2.5-4.9); POTASSIUM 3.6 mmol/L (3.5-5.1)
[2017-06-20 09:24] VITALS: BP 130/67; PULSE 61; O2SAT 95
--- NOTE | 2017-06-20 10:47 | Cardiology Follow-Up ---
Subjective Date of Service: Jun 20, 2017. Pt evaluation today including: conversation w/ patient, physical exam, chart review, lab review, review of studies History of Present Illness This morning claims to feel well. She has minimal discomfort at the implant site. She has been a chair. She denies any significant breathing difficulty. She has not noticed any palpitations. During the device interrogation she did have a brief sense of dizziness, likely related to the change in rhythm. Social History Smoking Status: Never Smoker History of Alcohol Use: No Review of Systems Respiratory: No cough, No sputum, No wheezing, No shortness of breath, No dyspnea on exertion, No dyspnea at rest, No hemoptysis Cardiac: No chest pain, No orthopnea, No PND, No edema, No claudication, No palpitations A recent gastrointestinal symptoms. No constitutional symptoms such as fevers or chills. No recent viral illnesses. Objective Vital Signs Past 12 Hours Date Time Temp Pulse Resp B/P (MAP) Pulse Ox O2 Delivery O2 Flow Rate FiO2 06/20/17 08:09 36.4 61 18 145/87 (106) 98 Room Air 06/20/17 08:00 Room Air 06/20/17 04:25 36.4 60 14 131/69 (89) 98 Room Air 06/20/17 04:00 Room Air 06/20/17 00:04 36.5 61 18 151/74 (99) 97 Room Air 06/19/17 23:59 Room Air Last Recorded Weight-Kilograms: 62.100 Physical Exam The patient is alert and oriented. Mood and affect appeared normal. He answered all questions appropriately. HEENT: Pupils are equal and reactive to light and accommodation. Extraocular movements are intact. The sclerae are anicteric. Neuro: Cranial nerves intact Chest: The implant site is clean dry and intact. There is some mild ecchymosis at the inferior edge. There is no hematoma. Data Laboratory Results: Last 24 Hours Test 06/20/17 07:52 Sodium Level 142 mmol/L Potassium Level 3.6 mmol/L Chloride Level 110 mmol/L Carbon Dioxide Level 26 mmol/L Anion Gap 6.0 mmol/L Blood Urea Nitrogen 11 mg/dl Creatinine 0.88 mg/dl Est Creatinine Clear Calc Drug Dose 42.3 ml/min Estimated GFR () 71.4 Estimated GFR (Non- 61.6 BUN/Creatinine Ratio 12.4 Random Glucose 84 mg/dl Calcium Level 8.6 mg/dl Phosphorus Level 3.2 mg/dl Magnesium Level 2.3 mg/dl Imaging: Chest x-ray demonstrated stable lead position. No pneumothorax I performed a complete device interrogation. She has normal sensing and function on both atrial and ventricular leads. Normal device function. Telemetry reviewed: Sinus rhythm with occasional atrial pacing Assessment and Plan 1. Tachy-marcela syndrome: Status post implantation of dual-chamber permanent pacemaker. There is not appear to be any notable complication. She has normal device function. At this point would seem reasonable to reinstitute her beta- daisy. I started her on atenolol 25 mg b.i.d.. If she continues to have breakthrough episodes of tachycardia with this is atrial fibrillation her SVT with an diltiazem as well. Now that she has a device implanted we can monitor her episodes of tachycardia indeterminate more aggressive therapy is necessary. 2. SVT: No recurrence in the hospital 3. Atrial fibrillation: She has a known history of atrial fibrillation. Will continue to monitor her for recurrent episodes of atrial fibrillation with her device. Anticoagulation initiation can be deferred to the outpatient setting. 4. Mitral regurgitation: Reportedly mild to moderate in the past. Recent echocardiogram did not reveal any worsening. Preserved LV systolic function.
[2017-06-20 11:31] VITALS: BP 118/66; PULSE 61; TEMP 37; O2SAT 96
[2017-06-20] MEDS ORDERED: TNR25 PO (12:41)
--- NOTE | 2017-06-20 12:42 | Discharge Instructions ---
Discharge Instructions Date of Service Jun 20, 2017. Admission Reason for Admission: Tachy-Marcela Syndrome Discharge Discharge Diagnosis / Problem: Tachy-Marcela Syndrome Discharge Goals Goal(s): Decrease discomfort, Improve function, Increase independence, Improve disease control, Improve nutritional status, Learn about illness, Diagnostic testing, Therapeutic intervention, Prevent Disease Progression, Specific goals Activity Recommendations Activity Limitations: as noted below . Instructions / Follow-Up Instructions / Follow-Up you have tachy-marcela syndrome coffee weigher has started atenolol 25 mg b.i.d.. You have Atrial fibrillation, with a known history of atrial fibrillation, you need to follow up with coffee weigher about this and to evaluation if the need of Anticoagulation for stroke prevention Activities include the arms not raise above shoulder, and no lifting in the left arm after the pacer placement will be all according to coffee weigher instruction - you need to follow up with your primary care physician in 1 week, - call your pcp if have chest pain, sob, palpitation, or if has any questions - take medication as instructed, never overdose or any misuse, or take with alcohol, because misuse of medicine may cause organ damage or , call your primary care physician if have questions of medicaitons. - call your primary care physician OR go to local emergency room if has any fever/chill, chest pain, shortness of breathing, nausea/vomiting/abdominal pain , facial droop/slurry speech/local weakness, or if has any questions. - fall precaution - diet as instructed - you need to follow up with your subspecialist, such as cardiology as instructed - you should understand that it is important to follow up the above instruction , and "not following the above instruction" may cause delayed or missed care of your medical conditions which may cause permanent organ damage and even . Current Hospital Diet Patient's current hospital diet: AHA Diet (Heart Healthy), Vegetarian Diet Discharge Diet Recommended Diet: AHA Diet (Heart Healthy) Procedures Procedures Performed: Permanent pacer placement Pending Studies Studies pending at discharge: no Laboratory Results Lipid Panel Test 06/19/17 06:25 Range/Units Triglycerides Level 96 0-150 mg/dl Cholesterol Level 160 0-200 mg/dl HDL Cholesterol 50 mg/dl Cholesterol/HDL Ratio 3.2 LDL Cholesterol, Calculated 91 mg/dl Medical Emergencies . Who to Call and When: Medical Emergencies: If at any time you feel your situation is an emergency, please call 911 immediately. . Non-Emergent Contact Non-Emergency issues call your: Primary Care Provider, Search Engineer . . "Provider Documentation" section prepared by Rocky Arias. . VTE Core Measure Inpt VTE Proph given/why not?: SCD's
[2017-06-20 13:55] VITALS: BP 118/66; PULSE 61; TEMP 37; O2SAT 96
--- NOTE | 2017-06-20 16:28 | Discharge Summary ---
Discharge Summary Date of Service Jun 20, 2017. Discharge Summary Admission Date: Jun 18, 2017 at 08:21 Discharge Date: Jun 20, 2017 Discharge Disposition: Home Principal Diagnosis: tachy-marcela syndrome , s/p pacer Problems/Secondary Diagnoses: Atrial fibrillation, with a known history of atrial fibrillation, Immunizations: History of Tetanus Vaccine?: No History of Pneumococcal: A COUPLE YRS AGO History of Hepatitis B Vaccine: No Procedures: pacemaker placement Consultations: Manager Equipment Medication Reconciliation New Medications: Atenolol (Atenolol) 25 Mg Tab 25 MG PO BID for 30 Days, #60 TAB Continued Medications: Aspirin (Aspirin Ec) 81 Mg Tab 81 MG PO DAILY Levothyroxine Sodium (Synthroid) 50 Mcg Tab 50 MCG PO DAILY, TAB Pravastatin Sodium (Pravachol) 20 Mg Tab 20 MG PO DAILY Discontinued Medications: Atenolol (Tenormin) 25 Mg Tab 12.5 MG PO DAILY PRN for INCREASED HEART RATE, TAB Discharge Exam Doing well, although bed, heart rate controlled, pain controlled, up and walk, no dizziness, Review of Systems: Constitutional: No fever, No chills, No sweats, No weight loss, No weakness , No fatigue, No problem reported Eyes: No worsening of vision, No eye pain, No redness, No discharge, No diplopia, No problem reported ENT: No hearing loss, No unusual epistaxis, No nasal symptoms, No sore throat, No tinnitus, No dental problems, No trouble swallowing, No problem reported Respiratory: No cough, No sputum, No wheezing, No shortness of breath, No dyspnea on exertion, No dyspnea at rest, No hemoptysis, No problem reported Cardiovascular: No chest pain, No orthopnea, No PND, No edema, No claudication, No palpitations, No problem reported Abdomen: No pain, No nausea, No vomiting, No diarrhea, No constipation, No GI bleeding, No problem reported Musculoskeletal: No joint pain, No muscle pain, No swelling, No calf pain, No problem reported Genitourinary - Female: No dysuria, No urinary frequency, No urinary urgency , No urinary incontinence, No urinary retention, No hematuria, No dysmenorrhea, No menorrhagia, No metrorrhagia, No rash, No vaginal bleeding, No vaginal discharge, No vaginal itching, No vulvodynia, No , No problem reported Neurologic: No memory loss, No paralysis, No weakness, No numbness/tingling , No vertigo, No balance problems, No problem reported Psychiatric: No depression symptoms, No anhedonism, No anxiety, No insomnia , No substance abuse, No problem reported Endocrine: No fatigue, No excessive thirst, No excessive urination, No problem reported Hematologic / Lymphatic: No abnormal bleeding/bruising, No clotting problems , No swollen lymph nodes, No night sweats, No problem reported Integumentary: No rash, No itch, No new/changing skin lesions, No color change, No bleeding, No problem reported Physical Exam: General Appearance: WD/WN, no apparent distress Eyes: normal inspection, PERRL ENT: normal ENT inspection, hearing grossly normal Neck: supple, no adenopathy Respiratory/Chest: chest non-tender, lungs clear Cardiovascular: regular rate, rhythm, no edema Abdomen / GI: normal bowel sounds, non tender, soft, no organomegaly, no pulsatile mass Extremities: normal inspection, no calf tenderness, normal capillary refill , no pedal edema, normal range of motion Neurologic/Psychiatric: cosmetic consultant II-XII nml as tested, no motor/sensory deficits , alert, normal mood/affect, normal reflexes, oriented x 3 Skin: normal color, no rash, + pertinent finding (left anterior chest wall S /P pacer placement, local skin clean and nontender with no swelling) Hospital Course 82-year-old white female admitted on 06/18/2017 with the problems below: Tachycardia, atrial fibrillation and bradycardia, possible tachybrady syndrome: S/P pacemaker, doing well, continue current care per introduction of cardiology, History of paroxysmal atrial fibrillation, discuss with cardiology if need blood thinner for stroke prevention are not, Manager Equipment for now does not need to, I encouraged patient to follow-up with cardiology about this, and also notify patient and the risk of the stroke, patient understand and willing to taking the risk Elevated troponin likely from demanding ischemia, possible Type II NV (NSTEMI) due to demand ischemia patient has no chest pain, troponin trends down hypothyroidism, dyslipidemia: repeated TSH was normal LDL 91 , GI and DVT prophylaxis is ordered. FULL CODE, but if has no hope she does not want to have prolonged life care. 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 You have Atrial fibrillation, with a known history of atrial fibrillation, you need to follow up with senior tax accountant about this and to evaluation if the need of Anticoagulation for stroke prevention Activities include the arms not raise above shoulder, and no lifting in the left arm after the pacer placement will be all according to senior tax accountant instruction - you need to follow up with your primary care physician in 1 week, - call your pcp if have chest pain, sob, palpitation, or if has any questions - take medication as instructed, never overdose or any misuse, or take with alcohol, because misuse of medicine may cause organ damage or , call your primary care physician if have questions of medicaitons. - call your primary care physician OR go to local emergency room if has any fever/chill, chest pain, shortness of breathing, nausea/vomiting/abdominal pain , facial droop/slurry speech/local weakness, or if has any questions. - fall precaution - diet as instructed - you need to follow up with your subspecialist, such as cardiology as instructed - you should understand that it is important to follow up the above instruction , and "not following the above instruction" may cause delayed or missed care of your medical conditions which may cause permanent organ damage and even . Total Time Spent: Greater than 30 minutes This includes examination of the patient, discharge planning, medication reconciliation, and communication with other providers. Discharge Instructions Please refer to the electronic Patient Visit Report (Discharge Instructions) for additional information. Additional Copies To Fidel Mack MD; Angelika Clemens PA-C
== END 2017-06-20 13:55 | disposition home or self-care (01) | DRG 242 ==
LOC: C.EDB 05:17 → C.EDINP 08:21 → ENRESERV 10:49 → C.2E 11:03
PROVIDERS: ADMIT Hospitalist; ATTEND Hospitalist
PROC: 0JH606Z Insertion of Pacemaker, Dual Chamber into Chest Subcutaneous Tissue and Fascia, Open Approach (ICD-10-PCS; principal; 2017-06-19 08:00)
PROC: 02HK0JZ Insertion of Pacemaker Lead into Right Ventricle, Open Approach (ICD-10-PCS; principal; 2017-06-19 08:00)
DX: I49.5 Sick sinus syndrome (principal); I21.A1 Myocardial infarction type 2; I47.1 Supraventricular tachycardia; I48.0 Paroxysmal atrial fibrillation; E03.9 Hypothyroidism, unspecified; E78.5 Hyperlipidemia, unspecified; Z82.49 Family history of ischemic heart disease and other diseases of the circulatory system

== ENCOUNTER 2017-11-09 16:57 | Inpatient (IN) | payer OTHER ==
[~2017-11-09] VITALS: Ht 154.9 cm; Wt 65.0 kg
[~2017-11-09 16:57] MED LIST changes: -ASPCH81; +ASPI81TA28 PO; -ATEN-173 PO; -DILT120C68 PO; +LEVO50TA PO; -SYN50 PO; +TNR25 PO
[2017-11-09] MEDS ORDERED: ASPIRIN 81 MG CHEW PO STA (17:11)
[2017-11-09] MEDS ORDERED: SODIUM CHLORIDE 0.9% 1000ML 1,000 ML IV STA (17:17)
[2017-11-09 17:33] LABS: BASO % 0.3 %; BASO ABS # 0.03 K/uL (0-0.2); EOS % 0.5 %; EOS ABS # 0.06 K/uL (0-0.5); HEMATOCRIT 43.9 % (37-47); IG# 0.02 K/uL (0.00-0.02); LYMPH % 27.4 %; MEAN CORPUSCULAR HEMOGLOBIN 31.4 pg (25-34); MEAN CORPUSCULAR HGB CONC 34.2 g/dl (32-36); MONO % 9.8 %; MONO ABS # 1.15 K/uL (0.11-0.59); NEUT % 61.8 %; NEUT ABS # 7.23 K/uL (1.4-6.5); PLATELET COUNT 245 K/uL (130-400); RED CELL DISTRIBUTION WIDTH CV 12.9 % (11.5-14.5); RED CELL DISTRIBUTION WIDTH SD 43.2 fL (36.4-46.3); WHITE BLOOD COUNT 11.69 K/uL (4.8-10.8)
[2017-11-09] MEDS ORDERED: ADENOSINE IV SOLN 3 MG/ML 2 ML VIAL ONE (17:35)
[2017-11-09 17:37] LABS: ISTAT IONIZED CALCIUM 1.1 mmol/l (1.12-1.32); ISTAT POTASSIUM 4.7 mEq/L (3.3-5.0)
[2017-11-09] MEDS ORDERED: METOPROLOL TARTRATE 1 MG/ML VIAL ONE (17:48)
[2017-11-09 17:51] LABS: PTT PATIENT 24.3 SECONDS (21.0-31.0)
--- NOTE | 2017-11-09 17:54 | DIAGNOSTIC IMAGING REPORT ---
SINGLE VIEW CHEST CLINICAL HISTORY: Palpitations. FINDINGS: An AP, portable, upright chest radiograph is compared to study dated 06/20/2017. The examination is degraded by portable technique and patient rotation. A 2-lead cardiac pacemaker is unchanged and partially obscures the left upper chest. The heart is mildly enlarged and there is atherosclerotic calcification of the thoracic aorta. The pulmonary vasculature is noncongested. Chronic interstitial thickening is similar to previous. No airspace consolidation or large pleural effusion is identified. Mild apical scarring is observed. No pneumothorax is seen. The skeletal structures are osteopenic. The bony thorax is grossly intact. IMPRESSION: 1. Cardiomegaly and cardiac pacemaker. There is no radiographic evidence of congestive failure. 2. No airspace consolidation or pleural effusion is identified. Electronically signed by: Dimitri Villar M.D. 11/09/2017 5:52 PM Dictated Date/Time: 11/09/2017 5:51 PM
[2017-11-09] MEDS ORDERED: ATEN-173 PO (18:01)
[2017-11-09] MEDS ORDERED: AMIODARONE 360MG / 200ML D5W ONE (18:05)
[2017-11-09 18:07] LABS: CALCIUM 8.9 mg/dl (8.5-10.1); CREATININE 1.09 mg/dl (0.60-1.20)
[2017-11-09] MEDS ORDERED: AMIODARONE HCL INJ 50 MG/ML 3 ML VIAL ONE (18:08)
[2017-11-09 18:11] LABS: INFLUENZA B ANTIGEN Neg for Influ B (NEG)
[2017-11-09] MEDS ORDERED: ACETAMINOPHEN 325 MG TAB PO PRN (19:00)
[2017-11-09] MEDS ORDERED: ALUMINUM/MAGNESIUM/SIMETH (MAALOX MAX) 30 ML UDC PO PRN (19:00)
[2017-11-09] MEDS ORDERED: POLYETHYLENE (MIRALAX) 17 GM PACK PO PRN (19:00)
[2017-11-09] MEDS ORDERED: ZOLPIDEM TARTRATE 5 MG TAB PO PRN (19:00)
[2017-11-09] MEDS ORDERED: MAGNESIUM HYDROXIDE SUSP 30 ML UDC PO PRN (19:00)
[2017-11-09] MEDS ORDERED: ONDANSETRON INJ 2 MG/ML 2 ML VIAL IV PRN (19:00)
[2017-11-09] MEDS ORDERED: AMIODARONE IV BOLUS / DRIP IV STA (19:18)
--- NOTE | 2017-11-09 19:18 | History and Physical ---
History & Physical Date of Service Nov 09, 2017. 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
[2017-11-09] MEDS ORDERED: AMIODARONE / D5W 200 ML IV SCH (19:30)
[2017-11-09 19:48] LABS: THYROXINE (T4) 7.8 mcg/dl (4.5-10.9)
--- NOTE | 2017-11-09 19:50 | EMERGENCY ROOM VISIT NOTE ---
History Report prepared by Juancarlosibcassy: Radha Bryant Under the Supervision of: Dr. Devin Brandt M.D. First contact with patient: 17:05 Chief Complaint: TACHYCARDIA Stated Complaint: RAPID HEARTBEAT- PACEMAKER Nursing Triage Summary: Pt states, "I have a pacemaker. I can feel my heart beating fast. It started about noon." States intermittent tachycardia. Denies cp, sob, dizzy or lightheadedness. Denies hx of a.fib. States "something" with mitral valve. History of Present Illness The patient is a 82 year old female who presents to the Emergency Room with complaints of an intermittent rapid heat beat beginning this afternoon, five hours ago. The patient has a pacemaker which was put in place four months ago. She notes neck pressure and intermittent dizziness. The patient denies any headache, cough, fever, nausea, chest pain or shortness of breath. The patient is not on any blood thinner. She denies any recent travel. The patient states she has been taking her medications as prescribed. Source of History: patient Onset: five hours ago Position: other (generalized) Quality: other (rapid heart beat) Timing: intermittent Associated Symptoms: + neck pain (pressure), No fevers, No headache, No cough, No chest pain, No SOB, No nausea Review of Systems See HPI for pertinent positives and negatives. A total of ten systems were reviewed and were otherwise negative. Past Medical & Surgical Medical Problems: (1) Mitral valve prolapse (2) palpitation, SVT (3) Paroxysmal atrial fibrillation (4) tachy marcela (5) Tachy-marcela syndrome Family History Heart disease Social History Smoking Status: Never Smoker Alcohol Use: none Marital Status: Housing Status: lives with family Occupation Status: retired Current/Historical Medications Scheduled Aspirin (Aspirin Ec), 81 MG PO DAILY Atenolol (Tenormin), 25 MG PO TID Levothyroxine Sodium (Synthroid), 50 MCG PO DAILY Pravastatin Sodium (Pravachol), 20 MG PO DAILY Allergies Coded Allergies: Codeine (Verified Allergy, Intermediate, NAUSEA/VOMITING, 11/09/17) Epinephrine (Verified Allergy, Unknown, 11/09/17) Physical Exam Vital Signs Date Time Temp Pulse Resp B/P (MAP) Pulse Ox O2 Delivery O2 Flow Rate FiO2 11/09/17 18:30 61 17 126/73 99 Room Air 11/09/17 18:23 64 3/4/18 18:01 143 114/97 11/09/17 17:53 149 15 119/87 100 Room Air 11/09/17 17:44 79 17 126/83 98 Room Air 11/09/17 17:41 93 11/09/17 17:17 151 11/09/17 17:01 36.6 150 20 88/71 97 Room Air Physical Exam Physical Exam GENERAL: She is oriented to person, place, and time. She appears well- developed and well-nourished. She does not appear distressed. ____ HENT: Exam performed. Head: Normocephalic and atraumatic. Right Ear: External ear normal. No mastoid tenderness. Left Ear: External ear normal. No mastoid tenderness. Mouth/Throat: The oropharynx is clear and moist. No trismus in the jaw. No dental abscesses or uvula swelling. No oropharyngeal exudate or tonsillar abscesses. ____ EYES: Conjunctivae and EOM are normal. Pupils are equal, round, and reactive to light. Right eye exhibits no discharge. Left eye exhibits no discharge. No scleral icterus. ____ CV: Tachycardic rate, regular rhythm, normal heart sounds and intact distal pulses. There is no peripheral edema. Palpable radial pulses bue. ____ PULM/CHEST: Effort normal and breath sounds normal. No respiratory distress. No stridor. She has no wheezes. She has no rales. Chest Wall: She exhibits no tenderness. ____ ABD: The abdomen is soft. Bowel sounds are normal. She has no distension. No mass is present. There is no tenderness. There is no rebound, no guarding, no Lara's sign and no tenderness at McBurney's point. Rovsig negative MUSC/SKEL: Normal range of motion. There is no peripheral edema, tenderness or deformity. LYMPH: No cervical adenopathy. ____ NEURO: She is alert and oriented to person, place, and time. She has normal strength. No cranial nerve deficit or sensory deficit. Coordination and gait normal. GCS eye subscore is 4. GCS verbal subscore is 5. GCS motor subscore is 6. Cerebellar tests wnl. ____ SKIN: Skin is warm and dry. She is not diaphoretic. ____ PSYCH: She has a normal mood and affect. Her behavior is normal. Judgment and thought content normal. ____ Medical Decision & Procedures ER Provider Diagnostic Interpretation: Radiology results as stated below per my review and radiologist interpretation: SINGLE VIEW CHEST FINDINGS: An AP, portable, upright chest radiograph is compared to study dated 06/20/2017. The examination is degraded by portable technique and patient rotation. A 2-lead cardiac pacemaker is unchanged and partially obscures the left upper chest. The heart is mildly enlarged and there is atherosclerotic calcification of the thoracic aorta. The pulmonary vasculature is noncongested. Chronic interstitial thickening is similar to previous. No airspace consolidation or large pleural effusion is identified. Mild apical scarring is observed. No pneumothorax is seen. The skeletal structures are osteopenic. The bony thorax is grossly intact. IMPRESSION: 1. Cardiomegaly and cardiac pacemaker. There is no radiographic evidence of congestive failure. 2. No airspace consolidation or pleural effusion is identified. Electronically signed by: Dimitri Villar M.D. Laboratory Results 11/09/17 17:15 Red Blood Count 4.77, Mean Corpuscular Volume 92.0, Mean Corpuscular Hemoglobin 31.4, Mean Corpuscular Hemoglobin Concent 34.2, Mean Platelet Volume 10.0, Neutrophils (%) (Auto) 61.8, Lymphocytes (%) (Auto) 27.4, Monocytes (%) (Auto) 9.8, Eosinophils (%) (Auto) 0.5, Basophils (%) (Auto) 0.3, Neutrophils # (Auto) 7.23, Lymphocytes # (Auto) 3.20, Monocytes # (Auto) 1.15, Eosinophils # (Auto) 0.06, Basophils # (Auto) 0.03 11/09/17 17:15 11/09/17 18:51 Test 11/09/17 17:15 11/09/17 17:21 11/09/17 17:25 11/09/17 17:30 White Blood Count 11.69 K/uL (4.8-10.8) Red Blood Count 4.77 M/uL (4.2-5.4) Hemoglobin 15.0 g/dL (12.0-16.0) Hematocrit 43.9 % (37-47) Mean Corpuscular Volume 92.0 fL (80-100) Mean Corpuscular Hemoglobin 31.4 pg (25-34) Mean Corpuscular Hemoglobin Concent 34.2 g/dl (32-36) Platelet Count 245 K/uL (130-400) Mean Platelet Volume 10.0 fL (7.4-10.4) Neutrophils (%) (Auto) 61.8 % Lymphocytes (%) (Auto) 27.4 % Monocytes (%) (Auto) 9.8 % Eosinophils (%) (Auto) 0.5 % Basophils (%) (Auto) 0.3 % Neutrophils # (Auto) 7.23 K/uL (1.4-6.5) Lymphocytes # (Auto) 3.20 K/uL (1.2-3.4) Monocytes # (Auto) 1.15 K/uL (0.11-0.59) Eosinophils # (Auto) 0.06 K/uL (0-0.5) Basophils # (Auto) 0.03 K/uL (0-0.2) RDW Standard Deviation 43.2 fL (36.4-46.3) RDW Coefficient of Variation 12.9 % (11.5-14.5) Immature Granulocyte % (Auto) 0.2 % Immature Granulocyte # (Auto) 0.02 K/uL (0.00-0.02) Prothrombin Time 10.2 SECONDS (9.0-12.0) Prothromb Time International Ratio 1.0 (0.9-1.1) Activated Partial Thromboplast Time 24.3 SECONDS (21.0-31.0) Partial Thromboplastin Ratio 0.9 Est Creatinine Clear Calc Drug Dose 34.6 ml/min Estimated GFR () 55.1 Estimated GFR (Non- 47.6 BUN/Creatinine Ratio 12.8 (10-20) Calcium Level 8.9 mg/dl (8.5-10.1) Troponin I 0.070 ng/ml (0-0.045) Thyroid Stimulating Hormone (TSH) 4.830 uIu/ml (0.300-4.500) Free Thyroxine 1.10 ng/dl (0.80-1.60) Bedside Lactic Acid Venous 2.18 mmol/L (0.90-1.70) Bedside Hemoglobin 16.3 g/dl (12.0-16.0) Bedside Hematocrit 48 % (37-47) Bedside Sodium 138 mEq/L (135-144) Bedside Potassium 4.7 mEq/L (3.3-5.0) Bedside Chloride 104 mEq/L (101-112) Bedside Total CO2 27 mEq/l (24-31) Anion Gap 13.0 mmol/L (16-25) Bedside Blood Urea Nitrogen 18 mg/dl (7-18) Bedside Creatinine 1.0 mg/dl (0.6-1.3) Bedside Glucose (other) 107 mg/dl (70-99) Bedside Ionized Calcium (Chantelle) 1.10 mmol/l (1.12-1.32) Influenza Type A Antigen Neg for Influ A (NEG) Influenza Type B Antigen Neg for Influ B (NEG) Test 11/09/17 18:51 Thyroxine (T4) 7.8 mcg/dl (4.5-10.9) Free Triiodothyronine 2.36 pg/ml (2.30-4.20) Total Triiodothyronine 0.88 ng/ml (0.60-1.81) Laboratory results reviewed by me Medications Administered Medications (Trade) Dose Ordered Sig/Sal Route Start Time Stop Time Status Last Admin Dose Admin Aspirin (Aspirin Chew) 324 mg NOW STAT PO 11/09/17 17:11 11/09/17 17:14 DC 11/09/17 17:27 324 MG Sodium Chloride 1,000 ml @ 999 mls/hr Q1H1M STAT IV 11/09/17 17:17 11/09/17 18:17 DC 11/09/17 17:24 999 MLS/HR Metoprolol Tartrate (Lopressor Iv) 5 mg STK-MED ONCE .ROUTE 11/09/17 17:48 11/09/17 17:49 DC 11/09/17 18:01 5 MG Amiodarone HCL/ Dextrose (Nexterone / D5w) 360 mg STK-MED ONCE .ROUTE 11/09/17 18:05 11/09/17 18:06 DC 11/09/17 18:29 360 MG Amiodarone HCl (Cordarone Inj) 150 mg STK-MED ONCE .ROUTE 11/09/17 18:08 11/09/17 18:09 DC 11/09/17 18:28 150 MG ECG Per My Interpretation Indication: chest pain, palpitations Rate (beats per minute): 150 Rhythm: sinus tachycardia Findings: Q waves (V3, V4, V5, and lead 2), ST elevation (avr), other (OH intervals are increased at 204, QRS and QTC are within normal limits,) Comparison ECG Date: 06/18/17 Change: no significant change Change: Repeat EKG reads: Sinus rhythm at 74 bpm, PAC, OH QRS and QTC are within normal limits, no ST elevation or depression. Repeat EKG: Atrial paced at 60 bpm, OH QRS and QTC are within normal limits, no ST elevation or depression ED Course 1707: The patient was evaluated in room B1. A complete history and physical exam was performed. 1711: EKG reads: Sinus tachycardia 150 bpm, OH intervals are increased at 204, QRS and QTC are within normal limits, inverted T-wave in lead V3, V4, V5, and lead 2, mild ST elevation in aVR, no change from 06/18/17. Ordered Aspirin 324 mg PO. 1717: Ordered Sodium Chloride 1000 ml @ 999 mls/hr IV. 1719: Discussed the patient's case with Dr. Levin. He looked at her EKG said it looked like SVT with T-wave abnormalities, He recommended having the patient try vagal maneuvers and then administer adenosine. I mentioned the possibility of the patient having an AVNRT accessory pathway and he still recommends administering adenosine and not procainamide. 1733: The patient is now in what appears to be in sinus arrhythmia in the 70s with pacer spikes. 1735: The patient went back into SVT. She denies any chest pain. Modified Valsalva was not successful in breaking the patient's SVT. 1737: [employer] admissions representative called with the pacemaker interrogation. He states the patient had multiple episodes of atrial tachycardia. He reports the patient had too many episodes to count. 1739: The patient is now in a sinus arrhythmia with a rate of 81. Pacer spikes are being seen. Blood pressure is 163/83. Patient is in no acute distress. 1745: Repeat EKG reads: Sinus rhythm at 74 bpm, PAC, OH QRS and QTC are within normal limits, no ST elevation or depression. 1746: I updated Dr. Levin on the patient's changing rhythms and repeat EKG. He recommends Lopressor IV push. He recommends using a beta daisy and not Cardizem because it will not help with any catecholamine surge for atrial tachycardia. 1748: Ordered Lopressor IV 2.5 mg IVP no improvement in SVT. 1754: Chest x-ray interpreted by me: No pneumothorax, no cardiomegaly, no free air, pacemaker leads do not appear to be fractured. 1755: Dr. Dunn recommended trying Lopressor one more time and if that doesn't work he suggested doing 150 mg amiodarone bolus over ten minutes followed by amiodarone drip. Repeat Lopressor IV 2.5 mg IVP showed no improvement in SVT. 1820: Status post-amiodarone bolus. The patients heart rate is 62. The patient appears to be in sinus arrhythmia on monitor. Blood pressure is 115/76. Amiodarone drip started. 1826: Discussed the patient's case with Dr. Juarez- Circular Gang Saw Operator. He thinks the patient is stable for the floor. 1825: Repeat EKG: Atrial paced at 60 bpm, OH QRS and QTC are within normal limits, no ST elevation or depression 1833: Discussed the patient's case with Dr. [facility]omin[facility]. The patient will be evaluated for further treatment and disposition. 1858: The patient's troponin was 0.07. The patient is denying any chest pain. I discussed the troponin with Dr. Dunn and he agrees there is no need for heparin at this time. Medical Decision Patient arrived in SVT. Modified Valsalva techniques did not improve the rate. Patient was intermittently in and out of SVT converting to sinus arrhythmia on her own. [employer] admissions representative stated he thought it was more atrial tachycardia. Discussed with cardiology, they recommended Lopressor boluses to try to break the SVT. This was suggested to try to decrease the catecholamine surge. Lopressor was not successful in breaking the SVT. Amiodarone 150 mg bolus was given and did break the SVT, the patient was placed on amiodarone drip 1 mg/min. Patient was admitted to the hospitalist service with cardiology on consult. Patient's troponin was elevated, however the geospatial image analyst and I believe that this is more due to demand ischemia given her SVT and that the patient is not having any active chest pain or difficulty breathing. Cardiology recommended no heparin be started in the emergency department and the troponins to be trended. Medication Reconcilliation Current Medication List: was personally reviewed by me Blood Pressure Screening Patient's blood pressure: Normal blood pressure Impression Primary Impression: SVT (supraventricular tachycardia) Critical Care I have personally spent greater than 98 minutes of critical care time in the direct management of this patient. This includes bedside care, interpretation of diagnostic studies, and testing, discussion with consultants, patient, and family members, and other required patient management activities. This 98 minutes is in excess of all separately billable procedures. Scribe Attestation The scribe's documentation has been prepared under my direction and personally reviewed by me in its entirety. I confirm that the note above accurately reflects all work, treatment, procedures, and medical decision making performed by me. The chart was completed utilizing [email or web address] Speech voice recognition software. Grammatical errors, random word insertions, pronoun errors, and incomplete sentences are an occasional consequence of this system due to software limitations, ambient noise, and hardware issues. Any formal questions or concerns about the content, text, or information contained within the body of this dictation should be directly addressed to the physician for clarification. Departure Information Dispostion Being Evaluated By Hospitalist Referrals Angelika Clemens PA-C (PCP) Patient Instructions My [facility] [address]
--- NOTE | 2017-11-09 19:57 | HISTORY & PHYSICAL EXAMINATION ---
DATE OF ADMISSION: 11/09/2017 This is a level 2 inpatient admission, 29 minutes. CHIEF COMPLAINT: Palpitation, comes and goes associated with dizziness. HISTORY OF PRESENT ILLNESS: The patient is an 82-year-old white female with a significant past medical history of paroxysmal AFib, supraventricular tachycardia, tachybrady syndrome, breast cancer, dyslipidemia, hypertension, hypothyroidism, mitral regurgitation, intracranial hemorrhages coming into the hospital Emergency Department because of the above chief complaint. The patient reports since 11:00 this morning she was feeling about palpitations associated with dizziness, it comes and goes, also have neck pressure like sensations. There were several episodes of dizziness and palpitation, therefore, she decided to come into the Emergency Room. In the ER, she was found to have possible SVT. Heart rate was up to 150s when she arrived here. Blood pressure was at 88. ED physician discussed with on-call sock turner feeling like having SVT or AVNRT. Therefore, amiodarone bolus and drip was started. Heart rate improved. Blood pressure was stable. When I interviewed with the patient, she is awake, alert, and orientated, conversational, follows all commands. Denied chest pain, no palpitation, no dizziness. Denied nausea, vomiting, abdominal pain, diarrhea, constipation. Denied dysuria, urgency and frequencies. Denied facial droop, slurry speeches or local weakness. Denied skin rashes. Denied fever and chill. Denied dysuria, urgency, or frequencies. ALLERGIES: ALLERGIC TO CODEINE AND EPINEPHRINE. PAST MEDICAL HISTORY: Like I mentioned in the above which include paroxysmal AFib, tachybrady syndrome, dyslipidemia, hypothyroidism, and recent intracranial hemorrhages. No more on anticoagulation. FAMILY HISTORY: Heart disease. SOCIAL HISTORY: Never smoked. Denied alcohol abuse disorder, denied illicit drug abuse. Denied tobacco abuse. The patient is and lives with family, retired. REVIEW OF SYSTEMS: Please see HPI, otherwise 14-point organ system review were negative. MEDICATIONS: Taking prior to this admission which includes aspirin 81 mg p.o. daily, atenolol 25 mg p.o. t.i.d., levothyroxine 50 mcg p.o. daily, pravastatin 20 mg p.o. daily. PHYSICAL EXAMINATION: VITAL SIGNS: Temperature 36.6, pulse 150 upon arriving, respiration rate 20, blood pressure 88/77 upon arriving, pulse ox was 97% in room air, heart rate 61 now. Pulse ox was 99% in room air, blood pressure is 126/73. GENERAL: The patient is a white female, awake, alert and orientated, conversational, follows all commands, smiling. Pleasant. HEAD: Normocephalic. EYES: Pupils equal, round responds to light. EARS: Ear was normal. NOSE: Normal. NECK: Supple. Thyroid no enlargement. Trachea midline. HEART: Regular rhythm. S1, S2. LUNGS: Decreased breathing sounds. There was no wheezing, rhonchi or crackles. HEART: Regular rhythm S1, S2, has no murmur. ABDOMEN: Soft, nontender. Bowel sound was positive. BILATERAL LOWER EXTREMITIES: No swelling. Homans sign was negative. Calf was nontender. NEUROLOGICAL EVALUATION: Cranial nerves II-XII was intact. There was no neurological deficits. LABORATORY STUDIES: WBC 11.6, hemoglobin 15, platelet 245. Neutrophils 61. PT/INR was 11/1. Sodium 138, potassium 4.7, BUN 18, creatinine 1. Blood glucose 107. Lactic acid 2.19. Ionized calcium 1.1. TSH was 4.8. Free T4 was 1.1. Troponin 0.07. Flu was negative. IMAGING STUDIES: Chest x-ray shows cardiomegaly and cardiac pacemaker. No radiographic evidence of congestive heart failure, no airspace consolidation and pleural effusion is identified. EKG upon arriving to the Emergency Room which shows sinus tachy and after discussed with cardiology, possible SVT. ASSESSMENT AND PLAN: An 82-year-old white female with the problem below, tachycardia, possible supraventricular tachycardia and atrioventricular reciprocating tachycardia. Per ED physician, discussed with sock turner. The patient's tachycardia significantly improved after amiodarone bolus and drip. We will continue amiodarone drip. Hold beta daisy for now. Have cardiology consultation. Minimal elevated troponin with neck pressure sensation , probably from troponin leakages from fast heart rate tachycardia. We are trending cardiac enzyme and troponin x2 sets more. EKG gas no ST- T changes, will f/u sock turner input. We will check electrolytes to make sure potassium, phosphorus, magnesium in normal level. The patient has a history of paroxysmal atrial fibrillation, no more on blood thinner. Per ED physician, she was having recent intracranial hemorrhage that is contraindicated for any blood thinner for stroke prevention. History of hypothyroidism. Check TSH, which was mildly elevated at 4.8, T4 was normal. Free T3 and total T3 is pending. mild elevated lactase. There was no sign of infection for now. DVT prophylaxis will be SCD. Discussed with patient about the care plan and answered all the questions. The patient is full code. MTDD
[2017-11-09 20:00] VITALS: BP 119/74; TEMP 36.6; O2SAT 98
[2017-11-09 21:19] VITALS: BP 116/76; PULSE 60; TEMP 36.6; O2SAT 98; Ht 154.9 cm; Wt 65.0 kg
[2017-11-09 23:23] VITALS: BP 119/76; PULSE 60; TEMP 36.5; O2SAT 96
[2017-11-10] VITALS: O2SAT 98
[2017-11-10 01:02] LABS: CKMB 2.2 ng/ml (0.5-3.6)
[2017-11-10] MEDS ORDERED: AMIODARONE / D5W 200 ML IV SCH (01:30)
[2017-11-10 03:47] VITALS: BP 109/75; PULSE 59; TEMP 36.5; O2SAT 98
[2017-11-10 04:00] VITALS: O2SAT 98
[2017-11-10] MEDS ORDERED: LEVOTHYROXINE 50 MCG TAB PO SCH (06:00)
[2017-11-10 07:34] LABS: CALCIUM 8.5 mg/dl (8.5-10.1); CREATININE 0.86 mg/dl (0.60-1.20); PHOSPHORUS 3.2 mg/dl (2.5-4.9); POTASSIUM 4.1 mmol/L (3.5-5.1)
[2017-11-10 07:46] VITALS: BP 114/72; PULSE 60; TEMP 36.5; O2SAT 97
--- NOTE | 2017-11-10 08:32 | Hospitalist Progress Note ---
Hospitalist Progress Note Date of Service Nov 10, 2017. Objective Vital Signs Date Time Temp Pulse Resp B/P (MAP) Pulse Ox O2 Delivery O2 Flow Rate FiO2 11/10/17 07:46 36.5 60 18 114/72 (86) 97 Room Air 11/10/17 04:00 98 Room Air 11/10/17 03:47 36.5 59 19 109/75 (86) 98 Room Air 11/10/17 00:00 98 Room Air 11/09/17 23:23 36.5 60 16 119/76 (90) 96 Room Air 11/09/17 21:19 36.6 60 20 116/76 98 Room Air 11/09/17 20:00 98 Room Air 11/09/17 20:00 36.6 20 119/74 (89) 98 Room Air 11/09/17 19:13 60 20 119/74 98 Room Air 11/09/17 18:30 61 17 126/73 99 Room Air 11/09/17 18:23 64 11/09/17 18:01 143 114/97 11/09/17 17:53 149 15 119/87 100 Room Air 11/09/17 17:44 79 17 126/83 98 Room Air 11/09/17 17:41 93 11/09/17 17:17 151 11/09/17 17:01 36.6 150 20 88/71 97 Room Air Laboratory Results Last 24 Hours Test 11/09/17 17:15 11/09/17 17:21 11/09/17 17:25 11/09/17 17:30 White Blood Count 11.69 K/uL Red Blood Count 4.77 M/uL Hemoglobin 15.0 g/dL Hematocrit 43.9 % Mean Corpuscular Volume 92.0 fL Mean Corpuscular Hemoglobin 31.4 pg Mean Corpuscular Hemoglobin Concent 34.2 g/dl Platelet Count 245 K/uL Mean Platelet Volume 10.0 fL Neutrophils (%) (Auto) 61.8 % Lymphocytes (%) (Auto) 27.4 % Monocytes (%) (Auto) 9.8 % Eosinophils (%) (Auto) 0.5 % Basophils (%) (Auto) 0.3 % Neutrophils # (Auto) 7.23 K/uL Lymphocytes # (Auto) 3.20 K/uL Monocytes # (Auto) 1.15 K/uL Eosinophils # (Auto) 0.06 K/uL Basophils # (Auto) 0.03 K/uL RDW Standard Deviation 43.2 fL RDW Coefficient of Variation 12.9 % Immature Granulocyte % (Auto) 0.2 % Immature Granulocyte # (Auto) 0.02 K/uL Prothrombin Time 10.2 SECONDS Prothromb Time International Ratio 1.0 Activated Partial Thromboplast Time 24.3 SECONDS Partial Thromboplastin Ratio 0.9 Sodium Level 135 mmol/L Potassium Level mmol/L Chloride Level 104 mmol/L Carbon Dioxide Level 23 mmol/L Anion Gap 8.0 mmol/L 13.0 mmol/L Blood Urea Nitrogen 14 mg/dl Creatinine 1.09 mg/dl Est Creatinine Clear Calc Drug Dose 34.6 ml/min Estimated GFR () 55.1 Estimated GFR (Non- 47.6 BUN/Creatinine Ratio 12.8 Random Glucose 101 mg/dl Calcium Level 8.9 mg/dl Troponin I 0.070 ng/ml Thyroid Stimulating Hormone (TSH) 4.830 uIu/ml Free Thyroxine 1.10 ng/dl Bedside Lactic Acid Venous 2.18 mmol/L Bedside Hemoglobin 16.3 g/dl Bedside Hematocrit 48 % Bedside Sodium 138 mEq/L Bedside Potassium 4.7 mEq/L Bedside Chloride 104 mEq/L Bedside Total CO2 27 mEq/l Bedside Blood Urea Nitrogen 18 mg/dl Bedside Creatinine 1.0 mg/dl Bedside Glucose (other) 107 mg/dl Bedside Ionized Calcium (Chantelle) 1.10 mmol/l Influenza Type A Antigen Neg for Influ A Influenza Type B Antigen Neg for Influ B Test 11/09/17 18:51 11/09/17 22:56 11/10/17 00:21 11/10/17 06:17 Potassium Level 4.0 mmol/L 4.1 mmol/L Thyroxine (T4) 7.8 mcg/dl Free Triiodothyronine 2.36 pg/ml Total Triiodothyronine 0.88 ng/ml Urine Color YELLOW Urine Appearance CLEAR Urine pH 6.5 Urine Specific [place] 1.006 Urine Protein NEG Urine Glucose (UA) NEG Urine Ketones NEG Urine Occult Blood NEG Urine Nitrite NEG Urine Bilirubin NEG Urine Urobilinogen NEG Urine Leukocyte Esterase SMALL Urine WBC (Auto) 5-10 /hpf Urine RBC (Auto) 0-4 /hpf Urine Hyaline Casts (Auto) 0 /lpf Urine Epithelial Cells (Auto) >30 /lpf Urine Bacteria (Auto) NEG Creatine Kinase MB 2.2 ng/ml Creatine Kinase MB Ratio Troponin I 0.233 ng/ml 0.146 ng/ml Sodium Level 140 mmol/L Chloride Level 109 mmol/L Carbon Dioxide Level 22 mmol/L Anion Gap 9.0 mmol/L Blood Urea Nitrogen 11 mg/dl Creatinine 0.86 mg/dl Est Creatinine Clear Calc Drug Dose 44.3 ml/min Estimated GFR () 73.4 Estimated GFR (Non- 63.4 BUN/Creatinine Ratio 13.4 Random Glucose 95 mg/dl Calcium Level 8.5 mg/dl Ionized Calcium 1.17 mmol/l Phosphorus Level 3.2 mg/dl Magnesium Level 2.2 mg/dl Assessment and Plan 82 yo F with possible supraventricular tachycardiac and atrioventricular tachycardia. Tachycardia, possible supraventricular tachycardia and atrioventricular reciprocating tachycardia. Cardiac Pacemaker - Admitted to tele - amiodarone bolus and drip started in ER, holding BB - Cardiology consult- appreciate recs - cardiac enzymes initially mildly elevated but has trended back downward. - EKG reviewed - PRP potassium, phosphorus, magnesium in normal level Paroxysmal atrial fibrillation - not on anticoagulation d/t Hx of intracranial hemorrhage Hypothyroidism. - Check TSH, which was mildly elevated at 4.8, T4 was normal. Free T3 and total T3 is pending. Mild elevated lactase DVT ppx: SCDs CODE STATUS: full code Disposition:
[2017-11-10] MEDS ORDERED: ASPIRIN 81 MG ECTAB PO SCH (09:00)
[2017-11-10] MEDS ORDERED: PRAVASTATIN SOD 20 MG TAB PO SCH (09:00)
--- NOTE | 2017-11-10 10:03 | Cardiology Follow-Up ---
Subjective Date of Service: Nov 10, 2017. Social History Smoking Status: Never Smoker History of Alcohol Use: No Objective Vital Signs Past 12 Hours Date Time Temp Pulse Resp B/P (MAP) Pulse Ox O2 Delivery O2 Flow Rate FiO2 11/10/17 07:46 36.5 60 18 114/72 (86) 97 Room Air 11/10/17 04:00 98 Room Air 11/10/17 03:47 36.5 59 19 109/75 (86) 98 Room Air 11/10/17 00:00 98 Room Air 11/09/17 23:23 36.5 60 16 119/76 (90) 96 Room Air Last Recorded Weight-Kilograms: 65.000 Data Laboratory Results: Last 24 Hours Test 11/09/17 17:15 11/09/17 17:21 11/09/17 17:25 11/09/17 17:30 White Blood Count 11.69 K/uL Red Blood Count 4.77 M/uL Hemoglobin 15.0 g/dL Hematocrit 43.9 % Mean Corpuscular Volume 92.0 fL Mean Corpuscular Hemoglobin 31.4 pg Mean Corpuscular Hemoglobin Concent 34.2 g/dl Platelet Count 245 K/uL Mean Platelet Volume 10.0 fL Neutrophils (%) (Auto) 61.8 % Lymphocytes (%) (Auto) 27.4 % Monocytes (%) (Auto) 9.8 % Eosinophils (%) (Auto) 0.5 % Basophils (%) (Auto) 0.3 % Neutrophils # (Auto) 7.23 K/uL Lymphocytes # (Auto) 3.20 K/uL Monocytes # (Auto) 1.15 K/uL Eosinophils # (Auto) 0.06 K/uL Basophils # (Auto) 0.03 K/uL RDW Standard Deviation 43.2 fL RDW Coefficient of Variation 12.9 % Immature Granulocyte % (Auto) 0.2 % Immature Granulocyte # (Auto) 0.02 K/uL Prothrombin Time 10.2 SECONDS Prothromb Time International Ratio 1.0 Activated Partial Thromboplast Time 24.3 SECONDS Partial Thromboplastin Ratio 0.9 Sodium Level 135 mmol/L Potassium Level mmol/L Chloride Level 104 mmol/L Carbon Dioxide Level 23 mmol/L Anion Gap 8.0 mmol/L 13.0 mmol/L Blood Urea Nitrogen 14 mg/dl Creatinine 1.09 mg/dl Est Creatinine Clear Calc Drug Dose 34.6 ml/min Estimated GFR () 55.1 Estimated GFR (Non- 47.6 BUN/Creatinine Ratio 12.8 Random Glucose 101 mg/dl Calcium Level 8.9 mg/dl Troponin I 0.070 ng/ml Thyroid Stimulating Hormone (TSH) 4.830 uIu/ml Free Thyroxine 1.10 ng/dl Bedside Lactic Acid Venous 2.18 mmol/L Bedside Hemoglobin 16.3 g/dl Bedside Hematocrit 48 % Bedside Sodium 138 mEq/L Bedside Potassium 4.7 mEq/L Bedside Chloride 104 mEq/L Bedside Total CO2 27 mEq/l Bedside Blood Urea Nitrogen 18 mg/dl Bedside Creatinine 1.0 mg/dl Bedside Glucose (other) 107 mg/dl Bedside Ionized Calcium (Chantelle) 1.10 mmol/l Influenza Type A Antigen Neg for Influ A Influenza Type B Antigen Neg for Influ B Test 11/09/17 18:51 11/09/17 22:56 11/10/17 00:21 11/10/17 06:17 Potassium Level 4.0 mmol/L 4.1 mmol/L Thyroxine (T4) 7.8 mcg/dl Free Triiodothyronine 2.36 pg/ml Total Triiodothyronine 0.88 ng/ml Urine Color YELLOW Urine Appearance CLEAR Urine pH 6.5 Urine Specific [place] 1.006 Urine Protein NEG Urine Glucose (UA) NEG Urine Ketones NEG Urine Occult Blood NEG Urine Nitrite NEG Urine Bilirubin NEG Urine Urobilinogen NEG Urine Leukocyte Esterase SMALL Urine WBC (Auto) 5-10 /hpf Urine RBC (Auto) 0-4 /hpf Urine Hyaline Casts (Auto) 0 /lpf Urine Epithelial Cells (Auto) >30 /lpf Urine Bacteria (Auto) NEG Creatine Kinase MB 2.2 ng/ml Creatine Kinase MB Ratio Troponin I 0.233 ng/ml 0.146 ng/ml Sodium Level 140 mmol/L Chloride Level 109 mmol/L Carbon Dioxide Level 22 mmol/L Anion Gap 9.0 mmol/L Blood Urea Nitrogen 11 mg/dl Creatinine 0.86 mg/dl Est Creatinine Clear Calc Drug Dose 44.3 ml/min Estimated GFR () 73.4 Estimated GFR (Non- 63.4 BUN/Creatinine Ratio 13.4 Random Glucose 95 mg/dl Calcium Level 8.5 mg/dl Ionized Calcium 1.17 mmol/l Phosphorus Level 3.2 mg/dl Magnesium Level 2.2 mg/dl Imaging: EKG: Telemetry reviewed: Assessment and Plan Increase beta daisy and discharge, we will followup in office soon
[2017-11-10] MEDS ORDERED: CRDCD/180 PO (10:16)
[2017-11-10] MEDS ORDERED: DILT-202 PO (10:18)
[2017-11-10] MEDS ORDERED: ATEN50TA PO (10:19)
--- NOTE | 2017-11-10 10:23 | Discharge Instructions ---
Discharge Instructions Date of Service Nov 10, 2017. Admission Reason for Admission: Palpitation, Svt Discharge Discharge Diagnosis / Problem: Palpitations, Supraventricular tachycardia Discharge Goals Goal(s): Decrease discomfort, Improve function, Increase independence, Improve disease control Activity Recommendations Activity Limitations: resume your previous activity Lifting Limitations: no more than 25 pounds, gradually increase as tolerated Exercise/Sports Limitations: rest today, gradually increase as tolerated May Resume Sexual Activity: when tolerated Shower/Bathe: no limitations Driving or Machine Use: no limitations . Instructions / Follow-Up Instructions / Follow-Up You were admitted to [facility] with palpitations and and diagnosed with supraventricular tachycardia. During your stay here you were treated with amiodarone intravenously (rate controlling medication) and then transitioned back to oral medications. Cardiology was consulted during your hospitalization - you will be scheduled for an outpatient ablation therapy procedure soon. Medications: Continue taking your medications as prescribed. Your atenolol was increased from 25 mg twice daily to 50 mg twice daily to help control rate Appointments: Follow up with PCP within 1 week. Follow up with cardiology within 1-2 weeks, they will schedule the ablation therapy with you. Current Hospital Diet Patient's current hospital diet: AHA Diet (Heart Healthy) Discharge Diet Recommended Diet: AHA Diet (Heart Healthy) Pending Studies Studies pending at discharge: no Medical Emergencies . Who to Call and When: Medical Emergencies: If at any time you feel your situation is an emergency, please call 911 immediately. . Non-Emergent Contact Non-Emergency issues call your: Primary Care Provider, [employer] Call Non-Emergent contact if: temperature is above 100.5, your pain is not controlled, your pain is worsening, you have any medication questions other concerns with your health. Call 911 or go directly to the Emergency Department if you experience any of the following: Chest pain, chest tightness, shortness of breath, abdominal pain , lightheadedness, dizziness, gastrointestinal bleeding, or have any other concerns regarding your health. . Past History Medical & Surgical History: (1) SVT (supraventricular tachycardia) . "Provider Documentation" section prepared by Joi Morejon. . [place] Drug Monitoring Program Search Results: no issues identified
[2017-11-10] MEDS ORDERED: DILTIAZEM HCL 120 MG CAPCR PO SCH (10:30)
[2017-11-10 11:46] VITALS: BP 126/74; PULSE 62; TEMP 36.3; O2SAT 98
[2017-11-10 12:52] VITALS: BP 126/74; PULSE 62; TEMP 36.3; O2SAT 98
--- NOTE | 2017-11-10 14:34 | Discharge Summary ---
Discharge Summary Date of Service Nov 10, 2017. Discharge Summary Admission Date: Nov 09, 2017 at 18:58 Discharge Date: Nov 10, 2017 Discharge Disposition: Home Principal Diagnosis: Supraventricular tachycardia Problems/Secondary Diagnoses: Medical Problems: (1) Hypothyroidism (2) Mitral valve prolapse (3) palpitation, SVT (4) Paroxysmal A-fib (5) Supraventricular tachycardia (6) Tachy-marcela syndrome Surgical Problems: (1) S/P cardiac pacemaker procedure Immunizations: History of Tetanus Vaccine?: No History of Pneumococcal: A COUPLE YRS AGO History of Hepatitis B Vaccine: No Procedures: SINGLE VIEW CHEST 11/09/17 IMPRESSION: 1. Cardiomegaly and cardiac pacemaker. There is no radiographic evidence of congestive failure. 2. No airspace consolidation or pleural effusion is identified. Consultations: Cardiology Medication Reconciliation Changed Medications: Atenolol (Tenormin) 50 Mg Tab 1 TAB PO BID for 30 Days, #60 TAB 0 Refills (Changed from: Atenolol (Tenormin) 25 Mg Tab 25 Mg PO TID) Continued Medications: Aspirin (Aspirin Ec) 81 Mg Tab 81 MG PO DAILY Diltiazem HCl (Diltiazem Cd) 120 Mg Capcr 120 MG PO DAILY for 30 Days, DOSE Levothyroxine Sodium (Synthroid) 50 Mcg Tab 50 MCG PO DAILY, TAB Pravastatin Sodium (Pravachol) 20 Mg Tab 20 MG PO DAILY Discharge Exam The patient was seen and examined this morning. Pt reports doing well. She denies any chest pain, palpitations, flutter, lightheadedness or dizziness. She was initially lightheaded and dizzy at home, and that is why she presented to the ER. Her family was present at bedside, and they were updated and all their questions were addressed. Discussion held with cardiology today, Dr. Burger, and will plan to send the patient home as there were no events other than a few second burst events of atrial tachycardia, and this is not new for the patient. They are planning for ablation therapy as an outpatient within the next 1-[address] pollard, as she follow with him as an outpt. Review of Systems: Constitutional: No fever, No chills, No sweats Eyes: No redness, No diplopia ENT: No sore throat, No trouble swallowing Respiratory: No cough, No shortness of breath, No dyspnea on exertion Cardiovascular: No chest pain, No edema, No palpitations Abdomen: No pain, No nausea, No vomiting, No diarrhea, No constipation Musculoskeletal: No joint pain, No swelling Neurologic: No weakness, No numbness/tingling Endocrine: No fatigue Integumentary: No rash, No itch Physical Exam: General Appearance: WD/WN, no apparent distress Eyes: PERRL, EOMI ENT: hearing grossly normal, pharynx normal Neck: supple, no JVD Respiratory/Chest: lungs clear, no respiratory distress, no accessory muscle use Cardiovascular: regular rate, rhythm, no murmur, normal peripheral pulses Abdomen / GI: normal bowel sounds, non tender, soft Extremities: no calf tenderness, no pedal edema Neurologic/Psychiatric: alert, normal mood/affect, oriented x 3 Skin: normal color, warm/dry Hospital Course 82 yo F with possible supraventricular tachycardiac and atrioventricular tachycardia. Tachycardia, possible supraventricular tachycardia and atrioventricular reciprocating tachycardia. Cardiac Pacemaker - Admitted to tele - amiodarone bolus and drip started in ER, holding BB - transitioned off the amiodarone gtt and her atenolol was increased from 25 mg BID to 50 mg BID. Pt was continued on cardizem during admission. - Cardiology consult- appreciate recs - cardiac enzymes initially mildly elevated but has trended back downward - no changes on EKG. Overnight had small burst of atrial tach on the monitor, but was not concerning per cardiology. Discussion was held with Dr. Burger this morning and he is planning on having her follow up within a week for an outpatient ablation. Pt follows with Dr. Pollard as an outpatient. - PRP potassium, phosphorus, magnesium in normal level Paroxysmal atrial fibrillation - not on anticoagulation d/t Hx of intracranial hemorrhage Hypothyroidism. - Check TSH, which was mildly elevated at 4.8, T4 was normal. Free T3 and total T3 are WNL - can be followed as an outpatient by PCP. Mild elevated lactase- at time of admission, resolved. DVT ppx: SCDs CODE STATUS: full code Disposition: From home, discharge today with cardiology follow up. Total Time Spent: Greater than 30 minutes This includes examination of the patient, discharge planning, medication reconciliation, and communication with other providers. Discharge Instructions Please refer to the electronic Patient Visit Report (Discharge Instructions) for additional information. Follow-Up Follow up with your Primary Care Provider within 1 week. Follow up with cardiology within 1-2 weeks. Additional Copies To Angelika Clemens PA-C Reviewed: Pt Seen/Exam by Me History She is feeling much improved. No further palps or lightheadedness. Tolerating PO. No chest pain or SOB. Agree with HPI/ROS as noted by PA General Appearance: WD/WN, no apparent distress Eye Exam: bilateral eye normal inspection, bilateral eye other (nml sclera) Respiratory: normal breath sounds, no respiratory distress Cardiovascular: normal peripheral pulses, regular rate, rhythm Gastrointestinal: non tender, soft Extremities: non-tender, no pedal edema Neurologic/Psychiatric: alert, normal mood/affect, oriented x 3 Skin Characteristics: normal color, warm/dry Assessment/Plan Agree with plan as outlined above SVT with hx of same increased beta daisy and f/u in office
--- NOTE | 2017-11-10 16:58 | Cardiology Consultation ---
Cardiology Consultation Date of Consultation: Nov 10, 2017. Requesting Physician: Dr. Arias Reason for Consultation: SVT Pt evaluation today including: conversation w/ patient, conversation w/ family , physical exam, lab review, review of studies, review of inpatient medication list, conversation w/ attending History of Present Illness This is a 82-year-old woman with a history of atrial fibrillation as well as SVT. She recently presented with prolonged tachycardia on June 18, 2017, this appeared to be a reentrant arrhythmia, probably typical AV jasmin reentry, however since she also had a history of atrial fibrillation requiring medical therapy she went on to have a dual-chamber pacemaker implanted on June 20, 2017. She continued to have episodes of palpitations consistent with SVT and her medications have been titrated somewhat as an outpatient. She now presents on November 09, 2017 with multiple episodes of palpitations and dizziness and in the emergency room was noted to have SVT. Her blood pressure was 88 systolic and her heart rate was in the 150 bpm range, she was started ultimately on amiodarone with control of her arrhythmia. At the time of my evaluation she is feeling well, she remains on amiodarone and is having no complaints. Past Medical/Surgical History (1) Supraventricular tachycardia (2) Tachy-marcela syndrome (3) Paroxysmal A-fib (4) S/P cardiac pacemaker procedure Family History Heart disease Social History Smoking Status: Never Smoker History of Alcohol Use: No Review of Systems Constitutional: No fever, No weight loss, No weakness Respiratory: No cough, No wheezing, No shortness of breath, No dyspnea on exertion Cardiac: + see HPI, + palpitations, No chest pain, No orthopnea, No PND, No edema Abdomen: No pain, No nausea, No vomiting, No diarrhea, No GI bleeding Female : No problem reported Neurologic: No paralysis, No weakness, No numbness/tingling, No balance problems Heme: No abnormal bleeding/bruising, No clotting problems Endo: No fatigue Skin: No problem reported All Other Systems: Reviewed and Negative Allergies Coded Allergies: Codeine (Verified Allergy, Intermediate, NAUSEA/VOMITING, 11/09/17) Epinephrine (Verified Allergy, Unknown, 11/09/17) Physical Exam Vital Signs Past 12 Hours Date Time Temp Pulse Resp B/P (MAP) Pulse Ox O2 Delivery O2 Flow Rate FiO2 11/10/17 12:52 36.3 62 18 98 Room Air 11/10/17 12:00 Room Air 11/10/17 11:46 36.3 62 18 126/74 (91) 98 Room Air 11/10/17 08:00 Room Air 11/10/17 07:46 36.5 60 18 114/72 (86) 97 Room Air Constitutional: General Apperance: heathly-appearing Level of Distress: NAD Psychiatric: Mental Status: active & alert Head: normocephalic Eyes: EOM: EOMI ENMT: normal ENT inspection, hearing grossly normal Neck: supple, no masses Lungs: Respiratory effort: no dyspnea, good air movement Auscultation: breath sounds normal, no wheezing Cardiovascular: Heart Auscultation: RRR, no murmurs, no rubs, no gallops Peripheral Pulses: Bruits: none appreciated Abdomen: Bowel Sounds: normal Inspection & Palpation: soft, no tenderness, guarding & rebound, no masses Musculoskeletal: normal strength (5/5 throughout) Extremities: no edema Neurologic: Cranial Nerves: grossly intact Sensation: grossly intact Data Laboratory Results: Last 24 Hours Test 11/09/17 17:15 11/09/17 17:21 11/09/17 17:25 11/09/17 17:30 White Blood Count 11.69 K/uL Red Blood Count 4.77 M/uL Hemoglobin 15.0 g/dL Hematocrit 43.9 % Mean Corpuscular Volume 92.0 fL Mean Corpuscular Hemoglobin 31.4 pg Mean Corpuscular Hemoglobin Concent 34.2 g/dl Platelet Count 245 K/uL Mean Platelet Volume 10.0 fL Neutrophils (%) (Auto) 61.8 % Lymphocytes (%) (Auto) 27.4 % Monocytes (%) (Auto) 9.8 % Eosinophils (%) (Auto) 0.5 % Basophils (%) (Auto) 0.3 % Neutrophils # (Auto) 7.23 K/uL Lymphocytes # (Auto) 3.20 K/uL Monocytes # (Auto) 1.15 K/uL Eosinophils # (Auto) 0.06 K/uL Basophils # (Auto) 0.03 K/uL RDW Standard Deviation 43.2 fL RDW Coefficient of Variation 12.9 % Immature Granulocyte % (Auto) 0.2 % Immature Granulocyte # (Auto) 0.02 K/uL Prothrombin Time 10.2 SECONDS Prothromb Time International Ratio 1.0 Activated Partial Thromboplast Time 24.3 SECONDS Partial Thromboplastin Ratio 0.9 Sodium Level 135 mmol/L Potassium Level mmol/L Chloride Level 104 mmol/L Carbon Dioxide Level 23 mmol/L Anion Gap 8.0 mmol/L 13.0 mmol/L Blood Urea Nitrogen 14 mg/dl Creatinine 1.09 mg/dl Est Creatinine Clear Calc Drug Dose 34.6 ml/min Estimated GFR () 55.1 Estimated GFR (Non- 47.6 BUN/Creatinine Ratio 12.8 Random Glucose 101 mg/dl Calcium Level 8.9 mg/dl Troponin I 0.070 ng/ml Thyroid Stimulating Hormone (TSH) 4.830 uIu/ml Free Thyroxine 1.10 ng/dl Bedside Lactic Acid Venous 2.18 mmol/L Bedside Hemoglobin 16.3 g/dl Bedside Hematocrit 48 % Bedside Sodium 138 mEq/L Bedside Potassium 4.7 mEq/L Bedside Chloride 104 mEq/L Bedside Total CO2 27 mEq/l Bedside Blood Urea Nitrogen 18 mg/dl Bedside Creatinine 1.0 mg/dl Bedside Glucose (other) 107 mg/dl Bedside Ionized Calcium (Chantelle) 1.10 mmol/l Influenza Type A Antigen Neg for Influ A Influenza Type B Antigen Neg for Influ B Test 11/09/17 18:51 11/09/17 22:56 11/10/17 00:21 11/10/17 06:17 Potassium Level 4.0 mmol/L 4.1 mmol/L Thyroxine (T4) 7.8 mcg/dl Free Triiodothyronine 2.36 pg/ml Total Triiodothyronine 0.88 ng/ml Urine Color YELLOW Urine Appearance CLEAR Urine pH 6.5 Urine Specific [place] 1.006 Urine Protein NEG Urine Glucose (UA) NEG Urine Ketones NEG Urine Occult Blood NEG Urine Nitrite NEG Urine Bilirubin NEG Urine Urobilinogen NEG Urine Leukocyte Esterase SMALL Urine WBC (Auto) 5-10 /hpf Urine RBC (Auto) 0-4 /hpf Urine Hyaline Casts (Auto) 0 /lpf Urine Epithelial Cells (Auto) >30 /lpf Urine Bacteria (Auto) NEG Creatine Kinase MB 2.2 ng/ml Creatine Kinase MB Ratio Troponin I 0.233 ng/ml 0.146 ng/ml Sodium Level 140 mmol/L Chloride Level 109 mmol/L Carbon Dioxide Level 22 mmol/L Anion Gap 9.0 mmol/L Blood Urea Nitrogen 11 mg/dl Creatinine 0.86 mg/dl Est Creatinine Clear Calc Drug Dose 44.3 ml/min Estimated GFR () 73.4 Estimated GFR (Non- 63.4 BUN/Creatinine Ratio 13.4 Random Glucose 95 mg/dl Calcium Level 8.5 mg/dl Ionized Calcium 1.17 mmol/l Phosphorus Level 3.2 mg/dl Magnesium Level 2.2 mg/dl EKG: Initial electrocardiogram shows SVT at 150 bpm, 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 DRP time is a little bit longer than normal but is still consistent with typical AVNRT. Assessment & Plan 1. 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 I suspect this is going to be a long-term problem and I discussed more definitive treatment with her and her family (ablation) and they are considering this option. Following ablation it is likely that her medications could be discontinued. She does not need medications for blood pressure control at this point we may be getting into difficulty with hypotension when she has her SVT. For the moment I am going to increase her atenolol to 50 mg twice daily, leave her on her current diltiazem and have her go home. I will arrange follow-up in the near future with Dr. Mack to consider and discuss ablation if he feels it is appropriate. 2. Pacemaker: Her pacemaker is functioning well, no changes made. Thank you for allowing me to participate in her care.
== END 2017-11-10 13:10 | disposition home or self-care (01) | DRG 310 ==
LOC: C.EDB 16:58 → C.2T 18:58 → ENRESERV 19:10
PROVIDERS: ADMIT Hospitalist; ATTEND Family Medicine
DX: I47.1 Supraventricular tachycardia (principal); I48.0 Paroxysmal atrial fibrillation; E78.5 Hyperlipidemia, unspecified; I10 Essential (primary) hypertension; E03.9 Hypothyroidism, unspecified; Z79.82 Long term (current) use of aspirin; Z79.899 Other long term (current) drug therapy; Z88.5 Allergy status to narcotic agent; Z88.8 Allergy status to other drugs, medicaments and biological substances; Z95.0 Presence of cardiac pacemaker

== ENCOUNTER 2024-08-14 17:24 | Observation (INO) ==
[2024-08-14 18:29] LABS: Basophils # (auto) 0.02 K/uL (0.00-0.20); Basophils % (auto) 0.1 %; Eosinophils # (auto) 0.01 K/uL (0.00-0.50); Eosinophils % (auto) 0.1 %; Hematocrit (blood only) 29.1 % (37.0-47.0); Hemoglobin 9.6 g/dl (12.0-16.0); Immature Granulocytes # (auto) 0.13 K/uL (0.01-0.20); Immature Granulocytes % (auto) 0.7 %; Lymphocytes % (auto) 2.2 %; Mean Corpuscular Volume 84.8 fL (80.0-100.0); Mean Platelet Volume 10.5 fL (9.4-12.4); Monocytes # (auto) 1.71 K/uL (0.11-0.59); Monocytes % (auto) 9.6 %; Neutrophils # (auto) 15.58 K/uL (1.40-6.50); Neutrophils % (auto) 87.3 %; Platelet Count 190 K/uL (130-400); RDW Coefficient of Variation 13.9 % (11.5-14.5); RDW Standard Deviation 43.2 fL (36.4-46.3); Red Blood Count 3.43 M/uL (4.20-5.40); White Blood Count 17.85 K/ul (4.8-10.8)
--- NOTE | 2024-08-14 18:39 | XRay Report ---
EXAM: Radiograph of the Chest 1 View INDICATION: Fever. TECHNIQUE: Frontal view of the chest. COMPARISON: 06/18/2023 FINDINGS: Lungs and pleural spaces: There is a patchy infiltrate in the right lower lung likely the middle lobe. There is chronic airway and interstitial thickening. Probable trace right pleural effusion. No pneumothorax. Heart: Shape and configuration within normal limits allowing for technique. Mediastinum: Normal contour. Bones/joints: No fracture, erosion or dislocation. Soft tissues: No abnormality noted. No radiopaque foreign body noted. Tubes, lines and devices: Stable prominent cardiac shadow and pacer device. Upper abdomen: No abnormality noted. IMPRESSION: Patchy right infiltrate likely in the right middle lobe most concerning for pneumonia. ACT 112: Negative or not required by law. Electronically signed by Amy Evans 08-14-2024 6:38 PM
--- NOTE | 2024-08-14 18:42 | XRay Report ---
EXAM: Radiographs of the Left Hip 3 Views INDICATION: Fever and pain. TECHNIQUE: Front view pelvis and AP and frog leg lateral views of the left hip. COMPARISON: No relevant prior studies available. FINDINGS: Limitations: None. Bones/joints: Cemented unipolar hip prosthesis well-seated and in good position. No fracture or dislocation. There is no osseous destruction or periosteal reaction. Degenerative changes present in the visualized lower lumbar spine. Soft tissues: No abnormality noted. No radiopaque foreign body noted. Other findings: Probable gallstones. IMPRESSION: 1. Satisfactory appearance of left hip arthroplasty. No acute osseous abnormality. 2. Probable gallstones. ACT 112: Negative or not required by law. Electronically signed by Amy Evans 08-14-2024 6:41 PM
[2024-08-14 18:44] LABS: Albumin Globulin Ratio 0.9 (0.9-2); Albumin Level 3.5 gm/dl (3.4-5.0); BUN Creatinine Ratio 21.4 (10-20); Calcium 8.8 mg/dl (8.6-10.3); Creatinine Clr Calc Pharmacy 24.9 ml/min; Globulin 3.8 gm/dl (2.5-4.0); Potassium 3.5 mmol/L (3.5-5.1); Total Protein 7.3 gm/dl (6.0-8.3)
[2024-08-14 18:57] LABS: Adenovirus PCR Not Detected (NotDetected); Bordetella parapertussis PCR Not Detected (NotDetected); Bordetella pertussis PCR Not Detected (NotDetected); Chlamydia pneumoniae PCR Not Detected (NotDetected); Coronavirus 229E PCR Not Detected (NotDetected); Coronavirus CoV-2 (COVID19)PCR Not Detected (NotDetected); Coronavirus HKU1 PCR Not Detected (NotDetected); Coronavirus NL63 PCR Not Detected (NotDetected); Coronavirus OC43PCR Not Detected (NotDetected); Human Metapneumovirus PCR Not Detected (NotDetected); Influenza A PCR Not Detected (NotDetected); Influenza B PCR Not Detected (NotDetected); Mycoplasma pneumoniae PCR Not Detected (NotDetected); Parainfluenza Virus 1 PCR Not Detected (NotDetected); Parainfluenza Virus 2 PCR Not Detected (NotDetected); Parainfluenza Virus 3 PCR Not Detected (NotDetected); Parainfluenza Virus 4 PCR Not Detected (NotDetected); Respiratory Syncytial VirusPCR Not Detected (NotDetected); Rhinovirus/Enterovirus PCR Not Detected (NotDetected)
[2024-08-14] MEDS ORDERED: AZITHROMYCIN 500 MG VIAL IV ONE (19:23)
[2024-08-14 19:27] LABS: Appearance Urine Cloudy (Clear); Bacteria Urine Automated None Seen (None Seen); Bilirubin Urine Negative (Negative); Blood Urine Negative (Negative); Color Urine Dark Yellow; Glucose Urine UA Negative (Negative); Granular Casts Urine Present /lpf (None Prsent); Ketones Urine Trace (Negative); Leukocyte Esterase Urine Trace (Negative); Nitrite Urine Negative (Negative); Protein Urine 2+ (Negative); RBC Urine Automated 0-2 /hpf (0-2); Specific Gravity Urine 1.033 (1.000-1.030); Urobilinogen Urine Negative (Negative); WBC Urine Automated 0-5 /hpf (0-5)
--- NOTE | 2024-08-14 19:41 | Emergency Department Note ---
Impression & Plan Pneumonia, Confusion, Leukocytosis, Hip pain, left ED Provider Note NAME: JENNIFER SALDANA AGE: 89 SEX: Female INFORMANT: Patient and family ED PROVIDER(S): Pavel Crabtree MD CHIEF COMPLAINT: Fever PLAN: Disposition: Admitted none Outpatient prescription management: none Referral: None MEDICAL DECISION MAKING: Patient presented because of fever. Family noted some confusion. Patient was doing relatively well at this time. Vital signs revealed mild tachycardia. Her CBC shows a significant leukocytosis. Chemistry panel was unremarkable except for mildly elevated BUN. Patient had a chest x-ray performed and there was concerns for right-sided infiltrate. BioFire testing was negative. X-ray imaging of the left hip does not reveal any acute process. Clinically there is no signs of infection on examination. Blood cultures were obtained. Lactate normal. Patient was treated with IV Rocephin and Zithromax. Patient has an elevated CURB 65 score warranting inpatient admission. [facility] Case discussed and diagnostics were reviewed. 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 Triage Nursing notes: reviewed and agree them. Vital Signs: reviewed and remarkable for borderline tachycardia Additional History obtained from: Patient's daughter. Noted some confusion and rigors. Chronic Medical/Social Conditions affecting care: Hip replacement, pacemaker, UTI Prior/ Outside/ External records reviewed: none Differential Diagnosis: Viral syndrome, pneumonia, influenza, meningitis, urinary tract infection, sepsis, bacteremia, as well as other pathologies. Diagnostics, independently interpreted by me: ECG: none Cardiac Monitoring: Cardiac monitoring ordered by me: The patient was placed on continuous cardiac monitoring and observed. It revealed paced rhythm at 86 bpm. Medical decision rules: Patient has an elevated CURB 65 score warranting inpatient treatment. Imaging studies: Chest x-ray concerning for pneumonia. HPI: 89 year old Female arrives for evaluation of fever. This started about 4 days ago and is persisting. The patient also notes the following associated symptoms, mild cough, left hip pain, decreased appetite. Family notes that patient had some confusion yesterday. She had weakness and rigors today. The patient has taken no medication for relieving factors. Current pain is rated as 2/10. Patient denies any trauma. Pt denies LOC, headache, diaphoresis, visual changes, neck pain, chest pain, breathing difficulties, nausea, vomiting, abdominal pain, back pain, melena, hematochezia, urinary symptoms, numbness, lymphadenopathy, rash, or other complaints.. PAST MEDICAL HISTORY: See Below, A-fib PAST SURGICAL HISTORY: See Below, pacemaker, left hip replacement SOCIAL HISTORY: See Below, retired HOME MEDICATIONS: See Below ALLERGIES: See Below VITALS: See Below PHYSICAL EXAMINATION: GENERAL: Awake, alert, [id number], in no distress HENT: Normocephalic, atraumatic. Oropharynx unremarkable. EYES: Normal conjunctiva. Sclera non-icteric. NECK: Inspection normal. Non-tender. Supple. No nuchal rigidity. FROM. No masses. RESPIRATORY: Clear to auscultation. No wheezes. No rales. Normal respiratory effort. CARDIAC: Normal rate. Normal rhythm. No murmurs. No rubs. Extremities warm and well perfused. Pulses equal. No JVD. GI: Soft, non-distended. No tenderness to palpation. No rebound or guarding. No masses. RECTAL: Deferred. MUSCULOSKELETAL: Atraumatic. The back is kyphotic on inspection without obvious abnormality. There is no CVA tenderness to palpation. No joint edema. LOWER EXTREMITIES: Calves are equal size bilaterally and non-tender. No edema. No discoloration. Mild tenderness over the left hip without limitation in range of motion. No erythema over the joint or swelling. NEURO: Normal sensorium. No sensory or motor deficits noted. SKIN: No rash or jaundice noted. 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 Encounter for pre-operative examination Hypothyroidism Tachy-marcela syndrome (Chronic) Paroxysmal A-fib (Chronic) Hip fracture, left Mitral regurgitation Supraventricular tachycardia (Chronic) Medical History Hypothyroidism Paroxysmal A-fib Tachy-marcela syndrome Surgical History S/P cardiac pacemaker procedure Social History Smoking Status: Never smoker Do You Dip or Chew Tobacco: No; Hx Alcohol Use: No Hx Substance Use: No Preferred Language: Turkmen Communication Ability: Effective Shell Grader Required: No Beliefs That Will Affect Care: None Current Living Situation: Alone Feels Safe at Home: Yes Safety Concerns: Feels Safe At This Time Assistive Devices: Denture - Upper and Glasses Allergies Allergies Allergy/AdvReac Type Severity Reaction Status Date / Time epinephrine Allergy Unknown . Verified 08/14/24 19:36 codeine AdvReac Intermediate NAUSEA/VOMI Verified 08/14/24 19:36 TING Home Meds Home Medications Medication Instructions Recorded Confirmed levothyroxine 50 mcg tablet 0 mcg PO DAILY 07/22/19 12/29/23 (Levoxyl) atenolol 50 mg tablet 0 mg PO DAILY 08/14/24 08/14/24 Previous Rx's Medication Instructions Recorded apixaban 2.5 mg tablet (Eliquis) 2.5 mg PO BID #180 tabs 04/23/23 diltiazem HCl 120 mg capsule,24 120 mg PO DAILY #90 caps 04/27/24 hr,extended release Results & Data (ED) Vital Signs Vital Signs - 24 hr 08/14/24 17:26 08/14/24 18:39 08/14/24 19:00 Temperature 37.3 C Temperature Source Oral Pulse Rate 114 H 107 H Pulse Rate [Apical] 117 H Pulse Rhythm [Apical] Regular Pulse Strength [Apical] Normal Respiratory Rate 18 22 Respiratory Effort / Characteristics Non-Labored Spontaneous Non-Labored Respiratory Depth Normal Normal Respiratory Pattern Regular Blood Pressure 106/63 Blood Pressure [Right Arm] 106/66 Blood Pressure Mean 77 Blood Pressure Mean [Right Arm] 79 Blood Pressure Position Sitting Blood Pressure Position [Right Arm] Lying Pulse Oximetry 97 97 Oxygen Delivery Method Room Air Room Air Sepsis Recent Fever Within 48 Hours Yes Sepsis New/Unexplained Change in Mental Status No Sepsis Action Taken by Nursing No Action Required 08/14/24 19:08 Temperature 37.1 C Temperature Source Oral Pulse Rate Pulse Rate [Apical] Pulse Rhythm [Apical] Pulse Strength [Apical] Respiratory Rate Respiratory Effort / Characteristics Respiratory Depth Respiratory Pattern Blood Pressure Blood Pressure [Right Arm] Blood Pressure Mean Blood Pressure Mean [Right Arm] Blood Pressure Position Blood Pressure Position [Right Arm] Pulse Oximetry Oxygen Delivery Method Sepsis Recent Fever Within 48 Hours Sepsis New/Unexplained Change in Mental Status Sepsis Action Taken by Nursing Laboratory Data 08/14/24 17:50 08/14/24 17:50 Lab Results 08/14/24 08/14/24 08/14/24 Range/Units 17:50 17:55 18:45 WBC 17.85 H (4.8-10.8) K/ul RBC 3.43 L (4.20-5.40) M/uL Hgb 9.6 L (12.0-16.0) g/dl Hct 29.1 L (37.0-47.0) % MCV 84.8 (80.0-100.0) fL MCH 28.0 (25.0-34.0) pg MCHC 33.0 (32.0-36.0) g/dL RDW Std Deviation 43.2 (36.4-46.3) fL RDW Coeff of Rk 13.9 (11.5-14.5) % Plt Count 190 (130-400) K/uL MPV 10.5 (9.4-12.4) fL Immature Gran % (Auto) 0.7 % Neut % (Auto) 87.3 % Lymph % (Auto) 2.2 % Pierce % (Auto) 9.6 % Eos % (Auto) 0.1 % Baso % (Auto) 0.1 % Neut # (Auto) 15.58 H (1.40-6.50) K/uL Lymph # (Auto) 0.40 L (1.20-3.40) K/uL Pierce # (Auto) 1.71 H (0.11-0.59) K/uL Eos # (Auto) 0.01 (0.00-0.50) K/uL Baso # (Auto) 0.02 (0.00-0.20) K/uL Immature Gran # (Auto) 0.13 (0.01-0.20) K/uL Sodium 132 L (136-145) mmol/L Potassium 3.5 (3.5-5.1) mmol/L Chloride 102 (98-107) mmol/L Carbon Dioxide 21 (21-32) mmol/L Anion Gap 9 (3-11) BUN 24 H (6-23) mg/dl Creatinine 1.12 (0.6-1.2) mg/dl Est Cr Clr Drug Dosing 24.9 ml/min eGFR 47.30 BUN/Creatinine Ratio 21.4 H (10-20) Glucose 137 H (70-99(Fasting)) mg/dl Lactate 1.2 (0.4-2.0) mmol/L Calcium 8.8 (8.6-10.3) mg/dl Total Bilirubin 1.0 (0.2-1.0) mg/dl AST 16 (13-39) U/L ALT 8 (7-52) U/L Alkaline Phosphatase 92 (34-104) U/L C-Reactive Protein 18.15 H (0-0.5) mg/dl Total Protein 7.3 (6.0-8.3) gm/dl Albumin 3.5 (3.4-5.0) gm/dl Globulin 3.8 (2.5-4.0) gm/dl Albumin/Globulin Ratio 0.9 (0.9-2) Procalcitonin 0.40 (0-0.5) ng/ml Urine Color Urine Appearance (Clear) Urine pH (4.5-7.5) Ur Specific [place] (1.000-1.030) Urine Protein (Negative) Urine Glucose (UA) (Negative) Urine Ketones (Negative) Urine Blood (Negative) Urine Nitrite (Negative) Urine Bilirubin (Negative) Urine Urobilinogen (Negative) Ur Leukocyte Esterase (Negative) Urine WBC (Auto) (0-5) /hpf Urine RBC (Auto) (0-2) /hpf U Hyaline Cast (Auto) (0-2) /lpf U Epithel Cells (Auto) (0-2) /hpf Urine Bacteria (Auto) (None Seen) Granular Casts (None Prsent) /lpf Adenovirus (PCR) Not Detected (NotDetected) B. pertussis DNA (PCR) Not Detected (NotDetected) B.parapertussis DNA PCR Not Detected (NotDetected) C. pneumoniae DNA (PCR) Not Detected (NotDetected) Coronavirus OC43 (PCR) Not Detected (NotDetected) Coronavirus HKU1 (PCR) Not Detected (NotDetected) Coronavirus 229E (PCR) Not Detected (NotDetected) SARS-CoV-2 (PCR) Not Detected (NotDetected) Coronavirus NL63 (PCR) Not Detected (NotDetected) Human Metapneumovir PCR Not Detected (NotDetected) Influenza Type A (PCR) Not Detected (NotDetected) Influenza Type B (PCR) Not Detected (NotDetected) M. pneumoniae (PCR) Not Detected (NotDetected) Parainfluenza 1 (PCR) Not Detected (NotDetected) Parainfluenza 2 (PCR) Not Detected (NotDetected) Parainfluenza 3 (PCR) Not Detected (NotDetected) Parainfluenza 4 (PCR) Not Detected (NotDetected) RSV (PCR) Not Detected (NotDetected) Entero/Rhino (PCR) Not Detected (NotDetected) 08/14/24 Range/Units 19:10 WBC (4.8-10.8) K/ul RBC (4.20-5.40) M/uL Hgb (12.0-16.0) g/dl Hct (37.0-47.0) % MCV (80.0-100.0) fL MCH (25.0-34.0) pg MCHC (32.0-36.0) g/dL RDW Std Deviation (36.4-46.3) fL RDW Coeff of Rk (11.5-14.5) % Plt Count (130-400) K/uL MPV (9.4-12.4) fL Immature Gran % (Auto) % Neut % (Auto) % Lymph % (Auto) % Pierce % (Auto) % Eos % (Auto) % Baso % (Auto) % Neut # (Auto) (1.40-6.50) K/uL Lymph # (Auto) (1.20-3.40) K/uL Pierce # (Auto) (0.11-0.59) K/uL Eos # (Auto) (0.00-0.50) K/uL Baso # (Auto) (0.00-0.20) K/uL Immature Gran # (Auto) (0.01-0.20) K/uL Sodium (136-145) mmol/L Potassium (3.5-5.1) mmol/L Chloride (98-107) mmol/L Carbon Dioxide (21-32) mmol/L Anion Gap (3-11) BUN (6-23) mg/dl Creatinine (0.6-1.2) mg/dl Est Cr Clr Drug Dosing ml/min eGFR BUN/Creatinine Ratio (10-20) Glucose (70-99(Fasting)) mg/dl Lactate (0.4-2.0) mmol/L Calcium (8.6-10.3) mg/dl Total Bilirubin (0.2-1.0) mg/dl AST (13-39) U/L ALT (7-52) U/L Alkaline Phosphatase (34-104) U/L C-Reactive Protein (0-0.5) mg/dl Total Protein (6.0-8.3) gm/dl Albumin (3.4-5.0) gm/dl Globulin (2.5-4.0) gm/dl Albumin/Globulin Ratio (0.9-2) Procalcitonin (0-0.5) ng/ml Urine Color Dark Yellow Urine Appearance Cloudy A (Clear) Urine pH 5.0 (4.5-7.5) Ur Specific [place] 1.033 H (1.000-1.030) Urine Protein 2+ H (Negative) Urine Glucose (UA) Negative (Negative) Urine Ketones Trace H (Negative) Urine Blood Negative (Negative) Urine Nitrite Negative (Negative) Urine Bilirubin Negative (Negative) Urine Urobilinogen Negative (Negative) Ur Leukocyte Esterase Trace H (Negative) Urine WBC (Auto) 0-5 (0-5) /hpf Urine RBC (Auto) 0-2 (0-2) /hpf U Hyaline Cast (Auto) 11-20 H (0-2) /lpf U Epithel Cells (Auto) 6-10 H (0-2) /hpf Urine Bacteria (Auto) None Seen (None Seen) Granular Casts Present A (None Prsent) /lpf Adenovirus (PCR) (NotDetected) B. pertussis DNA (PCR) (NotDetected) B.parapertussis DNA PCR (NotDetected) C. pneumoniae DNA (PCR) (NotDetected) Coronavirus OC43 (PCR) (NotDetected) Coronavirus HKU1 (PCR) (NotDetected) Coronavirus 229E (PCR) (NotDetected) SARS-CoV-2 (PCR) (NotDetected) Coronavirus NL63 (PCR) (NotDetected) Human Metapneumovir PCR (NotDetected) Influenza Type A (PCR) (NotDetected) Influenza Type B (PCR) (NotDetected) M. pneumoniae (PCR) (NotDetected) Parainfluenza 1 (PCR) (NotDetected) Parainfluenza 2 (PCR) (NotDetected) Parainfluenza 3 (PCR) (NotDetected) Parainfluenza 4 (PCR) (NotDetected) RSV (PCR) (NotDetected) Entero/Rhino (PCR) (NotDetected) Administered Medications Acetaminophen (Acetaminophen 325 Mg Tab) 650 mg PO Q4H PRN PRN Reason: Pain or Fever Stop: 09/13/24 21:46 Last Admin: 08/14/24 23:14 Dose: 650 mg Documented By: ROSEY Apixaban (Apixaban 2.5 Mg Tab) 2.5 mg PO BID LOUIE Stop: 09/13/24 21:46 Last Admin: 08/14/24 22:12 Dose: 2.5 mg Documented By: ROSEY Discontinued Medications Ceftriaxone Sodium (Rocephin) 2,000 mg in 50 mls @ 100 mls/hr IV NOW STA Stop: 08/14/24 19:51 Last Infusion: 08/14/24 20:45 Dose: Infused Documented By: Admin: 08/14/24 20:06 Dose: 100 mls/hr Documented By: GENO Azithromycin 500 mg/ Sodium (Chloride) 255 mls @ 127.5 mls/hr IV NOW ONE Stop: 08/14/24 21:44 Last Infusion: 08/14/24 22:48 Dose: Infused Documented By: Admin: 08/14/24 20:48 Dose: 127.5 mls/hr Documented By: PREET Imaging Data Radiologist's Impression: Chest X-Ray 08/14/24 17:43 EXAM: Radiograph of the Chest 1 View INDICATION: Fever. TECHNIQUE: Frontal view of the chest. COMPARISON: 06/18/2023 FINDINGS: Lungs and pleural spaces: There is a patchy infiltrate in the right lower lung likely the middle lobe. There is chronic airway and interstitial thickening. Probable trace right pleural effusion. No pneumothorax. Heart: Shape and configuration within normal limits allowing for technique. Mediastinum: Normal contour. Bones/joints: No fracture, erosion or dislocation. Soft tissues: No abnormality noted. No radiopaque foreign body noted. Tubes, lines and devices: Stable prominent cardiac shadow and pacer device. Upper abdomen: No abnormality noted. IMPRESSION: Patchy right infiltrate likely in the right middle lobe most concerning for pneumonia. ACT 112: Negative or not required by law. Electronically signed by Amy Evans 08-14-2024 6:38 PM Hip/Pelvis X-Ray 08/14/24 17:43 EXAM: Radiographs of the Left Hip 3 Views INDICATION: Fever and pain. TECHNIQUE: Front view pelvis and AP and frog leg lateral views of the left hip. COMPARISON: No relevant prior studies available. FINDINGS: Limitations: None. Bones/joints: Cemented unipolar hip prosthesis well-seated and in good position. No fracture or dislocation. There is no osseous destruction or periosteal reaction. Degenerative changes present in the visualized lower lumbar spine. Soft tissues: No abnormality noted. No radiopaque foreign body noted. Other findings: Probable gallstones. IMPRESSION: 1. Satisfactory appearance of left hip arthroplasty. No acute osseous abnormality. 2. Probable gallstones. ACT 112: Negative or not required by law. Electronically signed by Amy Evans 08-14-2024 6:41 PM Discharge Plan Visit Data Chief Complaint: Fever Stated Complaint: FEVER, ACHEY ALL OVER, HIP IS HURTING ED Provider: Pavel Crabtree Discharge Problem: Pneumonia, Confusion, Leukocytosis, Hip pain, left Patient Disposition: Admitted As Inpatient Discharge Instructions Interventions: ED Discharge Assessment Last Done: 08/14/24 21:18
[2024-08-14] MEDS: cefTRIAXone SODIUM 2,000 MG/50 ML BAG IV STA (20:06)
--- NOTE | 2024-08-14 20:17 | History & Physical Report ---
Date of Service August 14, 2024 Assessment & Plan (1) Pneumonia: Plan: -Patient with leukocytosis of 17, sodium of 132, elevated BUN of 24, elevated CRP of 18. Pro-Alonso negative. -X-ray showed patchy right infiltrate in the right middle lobe concerning for pneumonia -Patient is currently on room air not requiring any oxygen. Does have tachycardia. Elevated curb 65. -Started on ceftriaxone and azithromycin in the ED. Continue at this time. -Blood cultures pending. (2) Leukocytosis: Plan: -Leukocytosis of 17 in the ED -Was likely secondary to pneumonia -Will continue monitoring with daily labs. (3) Hypothyroidism: Plan: -States that she does not take levothyroxine at home. -Will hold at this time. (4) S/P cardiac pacemaker procedure: Plan: -Dual-chamber permanent pacemaker. Last seen electrophysiology on 07/19/2024. -History of mitral regurgitation, tachybradycardia syndrome, SVT, and paroxysmal A-fib. This is well-controlled with pacemaker. -Will continue on diltiazem 120 mg and Eliquis 2.5 twice daily. -Will monitor on telemetry. (5) S/P hip hemiarthroplasty: Plan: -Left hip arthroplasty done back on June 2023. -Hip and pelvis x-ray in the ED was negative. History of possible gallstones. Plan Fluids: None Nutrition: Heart healthy Code status: Full code DVT ppx: Eliquis Consults: None PT/OT: Ordered Dispo: PCU/telemetry History of Present Illness Chief Complaint: Pneumonia Primary Care Provider: Angelika Clemens PA-C Patient is an 89-year-old female with past medical history of paroxysmal A-fib status post pacemaker and hypothyroidism, who presents from home for chills, fevers, cough, achiness since Friday. Patient states that she took her temperature this afternoon at home and was 102. She has also been a little confused over this time. She had to go to her sister's today. She has also been having a decreased appetite. Some weakness specifically of the left hip. Denies any headache, visual changes, chest pain, nausea, vomiting, abdominal pain, or rash. Allergies Allergy/AdvReac Type Severity Reaction Status Date / Time epinephrine Allergy Unknown . Verified 08/14/24 19:36 codeine AdvReac Intermediate NAUSEA/VOMI Verified 08/14/24 19:36 TING Home Medications Medication Instructions Recorded Confirmed Type levothyroxine 50 mcg tablet 0 mcg PO DAILY 07/22/19 12/29/23 History (Levoxyl) apixaban 2.5 mg tablet (Eliquis) 2.5 mg PO BID #180 tabs 04/23/23 08/14/24 Rx diltiazem HCl 120 mg capsule,24 120 mg PO DAILY #90 caps 04/27/24 08/14/24 Rx hr,extended release atenolol 50 mg tablet 0 mg PO DAILY 08/14/24 08/14/24 History Past Med/Surg History Problem List Hip pain, left (Acute) Leukocytosis (Acute) Confusion (Acute) Pneumonia (Acute) Acute blood loss anemia S/P hip hemiarthroplasty DVT prophylaxis UTI (urinary tract infection) Status cardiac pacemaker 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 Encounter for pre-operative examination Hypothyroidism Tachy-marcela syndrome (Chronic) Paroxysmal A-fib (Chronic) Hip fracture, left Mitral regurgitation Supraventricular tachycardia (Chronic) Social History Smoking Status: Never smoker Do You Dip or Chew Tobacco: No; Hx Alcohol Use: No Hx Substance Use: No Preferred Language: Wolof Communication Ability: Effective Public Relations Required: No Beliefs That Will Affect Care: None Current Living Situation: Alone Feels Safe at Home: Yes Safety Concerns: Feels Safe At This Time Assistive Devices: Denture - Upper and Glasses Review of Systems Review of Systems: All systems reviewed & are unremarkable except as noted in Subjective Physical Exam Physical Exam: Constitutional: well-appearing, no acute distress HEENT: NCAT, no conjunctival injection CV: regular rhythm, no murmur appreciated, extremities well-perfused, no LE edema Resp: CTABL, right lower lobe rhonchi, no increased work of breathing GI: soft, nondistended, nontender, BS normoactive MSK: no gross deformities appreciated Skin: warm, dry, no rash appreciated Neuro: alert, oriented, no focal neurologic deficit appreciated Results & Data Results & Data Vital Signs (Past 12 Hours) Vital Signs Temp Pulse Pulse Resp BP BP Pulse Ox 08/14/24 19:08 37.1 C 08/14/24 19:00 117 H 22 106/66 97 08/14/24 18:39 107 H 08/14/24 17:26 37.3 C 114 H 18 106/63 97 O2 Del Method 08/14/24 19:08 08/14/24 19:00 Room Air 08/14/24 18:39 08/14/24 17:26 Room Air Laboratory Results Laboratory Results WBC 17.85 K/ul (4.8-10.8) H 08/14/24 17:50 RBC 3.43 M/uL (4.20-5.40) L 08/14/24 17:50 Hgb 9.6 g/dl (12.0-16.0) L 08/14/24 17:50 Hct 29.1 % (37.0-47.0) L 08/14/24 17:50 MCV 84.8 fL (80.0-100.0) 08/14/24 17:50 MCH 28.0 pg (25.0-34.0) 08/14/24 17:50 MCHC 33.0 g/dL (32.0-36.0) 08/14/24 17:50 RDW Std Deviation 43.2 fL (36.4-46.3) 08/14/24 17:50 RDW Coeff of Rk 13.9 % (11.5-14.5) 08/14/24 17:50 Plt Count 190 K/uL (130-400) 08/14/24 17:50 MPV 10.5 fL (9.4-12.4) 08/14/24 17:50 Immature Gran % (Auto) 0.7 % 08/14/24 17:50 Neut % (Auto) 87.3 % 08/14/24 17:50 Lymph % (Auto) 2.2 % 08/14/24 17:50 Major % (Auto) 9.6 % 08/14/24 17:50 Eos % (Auto) 0.1 % 08/14/24 17:50 Baso % (Auto) 0.1 % 08/14/24 17:50 Neut # (Auto) 15.58 K/uL (1.40-6.50) H 08/14/24 17:50 Lymph # (Auto) 0.40 K/uL (1.20-3.40) L 08/14/24 17:50 Major # (Auto) 1.71 K/uL (0.11-0.59) H 08/14/24 17:50 Eos # (Auto) 0.01 K/uL (0.00-0.50) 08/14/24 17:50 Baso # (Auto) 0.02 K/uL (0.00-0.20) 08/14/24 17:50 Immature Gran # (Auto) 0.13 K/uL (0.01-0.20) 08/14/24 17:50 Sodium 132 mmol/L (136-145) L 08/14/24 17:50 Potassium 3.5 mmol/L (3.5-5.1) 08/14/24 17:50 Chloride 102 mmol/L (98-107) 08/14/24 17:50 Carbon Dioxide 21 mmol/L (21-32) 08/14/24 17:50 Anion Gap 9 (3-11) 08/14/24 17:50 BUN 24 mg/dl (6-23) H 08/14/24 17:50 Creatinine 1.12 mg/dl (0.6-1.2) 08/14/24 17:50 Est Cr Clr Drug Dosing 24.9 ml/min 08/14/24 17:50 eGFR 47.30 08/14/24 17:50 BUN/Creatinine Ratio 21.4 (10-20) H 08/14/24 17:50 Glucose 137 mg/dl (70-99(Fasting)) H 08/14/24 17:50 Lactate 1.2 mmol/L (0.4-2.0) 08/14/24 18:45 Calcium 8.8 mg/dl (8.6-10.3) 08/14/24 17:50 Total Bilirubin 1.0 mg/dl (0.2-1.0) 08/14/24 17:50 AST 16 U/L (13-39) 08/14/24 17:50 ALT 8 U/L (7-52) 08/14/24 17:50 Alkaline Phosphatase 92 U/L (34-104) 08/14/24 17:50 C-Reactive Protein 18.15 mg/dl (0-0.5) H 08/14/24 17:50 Total Protein 7.3 gm/dl (6.0-8.3) 08/14/24 17:50 Albumin 3.5 gm/dl (3.4-5.0) 08/14/24 17:50 Globulin 3.8 gm/dl (2.5-4.0) 08/14/24 17:50 Albumin/Globulin Ratio 0.9 (0.9-2) 08/14/24 17:50 Procalcitonin 0.40 ng/ml (0-0.5) 08/14/24 17:50 Urine Color Dark Yellow 08/14/24 19:10 Urine Appearance Cloudy (Clear) A 08/14/24 19:10 Urine pH 5.0 (4.5-7.5) 08/14/24 19:10 Ur Specific [place] 1.033 (1.000-1.030) H 08/14/24 19:10 Urine Protein 2+ (Negative) H 08/14/24 19:10 Urine Glucose (UA) Negative (Negative) 08/14/24 19:10 Urine Ketones Trace (Negative) H 08/14/24 19:10 Urine Blood Negative (Negative) 08/14/24 19:10 Urine Nitrite Negative (Negative) 08/14/24 19:10 Urine Bilirubin Negative (Negative) 08/14/24 19:10 Urine Urobilinogen Negative (Negative) 08/14/24 19:10 Ur Leukocyte Esterase Trace (Negative) H 08/14/24 19:10 Urine WBC (Auto) 0-5 /hpf (0-5) 08/14/24 19:10 Urine RBC (Auto) 0-2 /hpf (0-2) 08/14/24 19:10 U Hyaline Cast (Auto) 11-20 /lpf (0-2) H 08/14/24 19:10 U Epithel Cells (Auto) 6-10 /hpf (0-2) H 08/14/24 19:10 Urine Bacteria (Auto) None Seen (None Seen) 08/14/24 19:10 Granular Casts Present /lpf (None Prsent) A 08/14/24 19:10 Adenovirus (PCR) Not Detected (NotDetected) 08/14/24 17:55 B. pertussis DNA (PCR) Not Detected (NotDetected) 08/14/24 17:55 B.parapertussis DNA PCR Not Detected (NotDetected) 08/14/24 17:55 C. pneumoniae DNA (PCR) Not Detected (NotDetected) 08/14/24 17:55 Coronavirus OC43 (PCR) Not Detected (NotDetected) 08/14/24 17:55 Coronavirus HKU1 (PCR) Not Detected (NotDetected) 08/14/24 17:55 Coronavirus 229E (PCR) Not Detected (NotDetected) 08/14/24 17:55 SARS-CoV-2 (PCR) Not Detected (NotDetected) 08/14/24 17:55 Coronavirus NL63 (PCR) Not Detected (NotDetected) 08/14/24 17:55 Human Metapneumovir PCR Not Detected (NotDetected) 08/14/24 17:55 Influenza Type A (PCR) Not Detected (NotDetected) 08/14/24 17:55 Influenza Type B (PCR) Not Detected (NotDetected) 08/14/24 17:55 M. pneumoniae (PCR) Not Detected (NotDetected) 08/14/24 17:55 Parainfluenza 1 (PCR) Not Detected (NotDetected) 08/14/24 17:55 Parainfluenza 2 (PCR) Not Detected (NotDetected) 08/14/24 17:55 Parainfluenza 3 (PCR) Not Detected (NotDetected) 08/14/24 17:55 Parainfluenza 4 (PCR) Not Detected (NotDetected) 08/14/24 17:55 RSV (PCR) Not Detected (NotDetected) 08/14/24 17:55 Entero/Rhino (PCR) Not Detected (NotDetected) 08/14/24 17:55 Impressions Chest X-Ray 08/14/24 17:43 EXAM: Radiograph of the Chest 1 View INDICATION: Fever. TECHNIQUE: Frontal view of the chest. COMPARISON: 06/18/2023 FINDINGS: Lungs and pleural spaces: There is a patchy infiltrate in the right lower lung likely the middle lobe. There is chronic airway and interstitial thickening. Probable trace right pleural effusion. No pneumothorax. Heart: Shape and configuration within normal limits allowing for technique. Mediastinum: Normal contour. Bones/joints: No fracture, erosion or dislocation. Soft tissues: No abnormality noted. No radiopaque foreign body noted. Tubes, lines and devices: Stable prominent cardiac shadow and pacer device. Upper abdomen: No abnormality noted. IMPRESSION: Patchy right infiltrate likely in the right middle lobe most concerning for pneumonia. ACT 112: Negative or not required by law. Electronically signed by Amy Evans 08-14-2024 6:38 PM Hip/Pelvis X-Ray 08/14/24 17:43 EXAM: Radiographs of the Left Hip 3 Views INDICATION: Fever and pain. TECHNIQUE: Front view pelvis and AP and frog leg lateral views of the left hip. COMPARISON: No relevant prior studies available. FINDINGS: Limitations: None. Bones/joints: Cemented unipolar hip prosthesis well-seated and in good position. No fracture or dislocation. There is no osseous destruction or periosteal reaction. Degenerative changes present in the visualized lower lumbar spine. Soft tissues: No abnormality noted. No radiopaque foreign body noted. Other findings: Probable gallstones. IMPRESSION: 1. Satisfactory appearance of left hip arthroplasty. No acute osseous abnormality. 2. Probable gallstones. ACT 112: Negative or not required by law. Electronically signed by Amy Evans 08-14-2024 6:41 PM Supervising Physician Co-Signing Physician Notes Patient seen and examined, chart reviewed, I agree with the assessment and plan per Dr. Valderrama as outlined above. In brief, patient is an 89 yo female presenting with fever/chills/rigors as well as dry cough. Workup consistent with CAP. Patient with leukocytosis with elevated N:L, BN=24, Bl=466, CRP=18. Respiratory biofire panel is NEGATIVE. CXR with patchy airspace process mostly in RML. Intermittent confusion throughout the day as described by daughter - now improved On exam patient non-toxic in appearance Skin -no rash HEENT- MMM, neck supple Heart - +S1/S2 Lungs - +rhonchi anterior right lung field otherwise no rales/wheezes Abd - +BS, soft, NT/ND Ext - warm, well perfused, no clubbing/cyanosis or edema Labs and images reviewed Assessment/Plan 89yo female presenting with likely CAP. Patient presently afebrile, HD stable. Elevated CURB-65 score given age, presence of confusion and BUN -Ceftriaxone and Azithromycin -Tylenol PRN -Remainder as above
[2024-08-14] MEDS: AZITHROMYCIN 500 MG in SODIUM CHLORIDE 0.9% 250 ML IV ONE (20:48)
[2024-08-14 21:05] LABS: C Reactive Protein 18.15 mg/dl (0-0.5)
--- NOTE | 2024-08-14 22:10 | Billing Data ---
Date of Service August 14, 2024 Coding Level of Care Code 19168 INT INP/OBS CARE
[2024-08-14] MEDS: APIXABAN 2.5 MG TAB PO SCH (22:12)
[2024-08-14] MEDS: ACETAMINOPHEN 325 MG TAB PO PRN (23:14)
[2024-08-15 06:18] LABS: Hematocrit (blood only) 31.9 % (37.0-47.0); Hemoglobin 10.3 g/dl (12.0-16.0); Mean Corpuscular Hgb Conc 32.3 g/dL (32.0-36.0); Mean Corpuscular Volume 86.7 fL (80.0-100.0); Mean Platelet Volume 10.3 fL (9.4-12.4); Platelet Count 202 K/uL (130-400); RDW Coefficient of Variation 13.9 % (11.5-14.5); RDW Standard Deviation 44.3 fL (36.4-46.3); Red Blood Count 3.68 M/uL (4.20-5.40); White Blood Count 20.88 K/ul (4.8-10.8)
[2024-08-15] MEDS ORDERED: LEVOTHYROXINE SODIUM 50 MCG TABLET PO SCH (06:30)
[2024-08-15 06:31] LABS: Albumin Globulin Ratio 0.8 (0.9-2); BUN Creatinine Ratio 19.6 (10-20); Bilirubin,Total 0.9 mg/dl (0.2-1.0); Calcium 8.8 mg/dl (8.6-10.3); Creatinine Clr Calc Pharmacy 28.8 ml/min; Globulin 3.7 gm/dl (2.5-4.0); Magnesium 2.1 mg/dl (1.7-2.4); Potassium 3.6 mmol/L (3.5-5.1); Total Protein 6.7 gm/dl (6.0-8.3)
--- NOTE | 2024-08-15 07:16 | Hospitalist Progress Note ---
Date of Service August 15, 2024 Assessment & Plan (1) Pneumonia: Plan: - Patient with several days' subjective fevers & malaise + 1 day tremors and chest pain - In ED, leukocytosis up to 17.85, hyponatremia to 132, BUN of 24, CRP of 18. Pro-Alonso negative. Elevated CURB 65 score - CXR showed patchy right infiltrate in the right middle lobe concerning for pneumonia - Currently satting >95% on room air. HR has been >95. WBC now up to 20.88 - Continue 2g IV ceftriaxone and 250mg azithromycin daily. Transition to po abx based on labs/cultures - Blood cultures pending (2) Leukocytosis: Plan: - WBC 17.85 in the ED --> 20.88 this morning - Likely 2/2 pneumonia - Continue monitoring with daily labs (3) S/P cardiac pacemaker procedure: Plan: - Dual-chamber permanent pacemaker. Last seen electrophysiology on 07/19/2024. - H/o mitral regurg, tachy-marcela syndrome, SVT, and paroxysmal afib. All well- controlled with pacemaker. - Continue diltiazem 120 mg daily and Eliquis 2.5 mg BID - Will monitor on telemetry (4) S/P hip hemiarthroplasty: Plan: - Left hip arthroplasty done back on June 2023 - Patient reports recent weakness especially of left hip - Hip and pelvis x-ray in the ED was negative. - PT/OT to eval and treat Plan Diet: Heart healthy Code status: Full code DVT ppx: Eliquis Admission and Anticipated Discharge Date Admission Date: August 14, 2024 Supervising Physician Co-Signing Physician Notes I personally examined the patient and verified all guy points of history and exam, discussed case, and agree with decision making with Dr Acevedo feeling much better. Getting around well. Vitals noted, in general she is awake and alert pleasant no distress. HEENT normocephalic atraumatic mucous membranes moist. Lungs overall quiet but clear no rales rhonchi or wheezes. Skin without rashes pallor or icterus. Neuro without focal deficits. Community-acquired pneumonia with sepsis present on admission (SIRS criteria being white count and tachycardia)improving. Continue Zithromax and Rocephin. Follow for further improvementhopefully home on oral antibiotics tomorrow. on eliquis Subjective Patient had several days of (subjective) fevers and malaise, and came to hospital when she also started having tremors and chest pain yesterday. Was v concerned the weakness could be related to prior hip problems & chest pain could be related to prior breast cancer. Today, she reports feeling significantly better. She is very pleased with her care team and states that her "medications are really working." She has been out of bed, walking around, eating and drinking normally. Reports normal bowel and bladder fxn. Says she realized once her sx improved that the chest pain was actually a/w breathing; now is able to inhale deeply w/o issue. Denies any current GOVEA, dizziness, tremors, SOB, CP, n/v/c/d, abd pain, dysuria, muscle or joint aches. Review of Systems 2 Review of Systems: As per HPI. Physical Exam 2 Physical Exam: Gen: NAD, WD/WN HEENT: NCAT, PERRL, EOMI CV: RRR, no m/r/g, S1/S2 normal Resp: CTAB, symmetrical chest rise, breathing non-labored Abd: Soft, NT/ND, +BS, no HSM MSK: Full ROM, normal str, no gross deformities Skin: Warm, dry, pink, no rashes or lesions Results & Data Results & Data Vital Signs (Past 12 Hours) Vital Signs Temp Pulse Pulse Resp BP Pulse Ox O2 Del Method 08/15/24 03:08 37.3 C 95 H 16 108/70 95 Room Air 08/14/24 23:15 37.0 C 99 H 18 126/76 98 Room Air 08/14/24 23:00 92 H 08/14/24 22:25 Room Air 08/14/24 22:07 36.6 C 113 H 16 133/65 95 Room Air 08/14/24 21:00 112 H 20 112/63 97 Room Air 08/14/24 19:08 37.1 C Laboratory Results 08/15/24 05:46 08/15/24 05:46 Diagnostic Findings Chest X-Ray 08/14/24 17:43 EXAM: Radiograph of the Chest 1 View INDICATION: Fever. TECHNIQUE: Frontal view of the chest. COMPARISON: 06/18/2023 FINDINGS: Lungs and pleural spaces: There is a patchy infiltrate in the right lower lung likely the middle lobe. There is chronic airway and interstitial thickening. Probable trace right pleural effusion. No pneumothorax. Heart: Shape and configuration within normal limits allowing for technique. Mediastinum: Normal contour. Bones/joints: No fracture, erosion or dislocation. Soft tissues: No abnormality noted. No radiopaque foreign body noted. Tubes, lines and devices: Stable prominent cardiac shadow and pacer device. Upper abdomen: No abnormality noted. IMPRESSION: Patchy right infiltrate likely in the right middle lobe most concerning for pneumonia. Electronically signed by Amy Evans 08-14-2024 6:38 PM Hip/Pelvis X-Ray 08/14/24 17:43 EXAM: Radiographs of the Left Hip 3 Views INDICATION: Fever and pain. TECHNIQUE: Front view pelvis and AP and frog leg lateral views of the left hip. COMPARISON: No relevant prior studies available. FINDINGS: Limitations: None. Bones/joints: Cemented unipolar hip prosthesis well-seated and in good position. No fracture or dislocation. There is no osseous destruction or periosteal reaction. Degenerative changes present in the visualized lower lumbar spine. Soft tissues: No abnormality noted. No radiopaque foreign body noted. Other findings: Probable gallstones. IMPRESSION: 1. Satisfactory appearance of left hip arthroplasty. No acute osseous abnormality. 2. Probable gallstones. Electronically signed by Amy Evans 08-14-2024 6:41 PM Resident Activity Tracking Resident Involvement: Resident Care Provided Care Provided: Adult Hospital Medicine
[2024-08-15] MEDS: dilTIAZem HCL 120 MG CAPCR PO SCH (08:19)
--- NOTE | 2024-08-15 16:58 | Billing Data ---
Date of Service August 15, 2024 Coding Level of Care Code 53382 SUB INP/OBS CARE
[2024-08-15] MEDS: cefTRIAXone SODIUM 2,000 MG/50 ML BAG IV SCH (19:35)
[2024-08-15] MEDS: AZITHROMYCIN 250 MG in SODIUM CHLORIDE 0.9% 250 ML IV SCH (20:07)
[2024-08-16 03:30] VITALS: RESP 18
[2024-08-16] MEDS: LEVOTHYROXINE SODIUM 50 MCG TABLET PO SCH (05:30)
[2024-08-16 06:11] LABS: Hematocrit (blood only) 31.8 % (37.0-47.0); Hemoglobin 10.3 g/dl (12.0-16.0); Mean Corpuscular Hemoglobin 28.1 pg (25.0-34.0); Mean Corpuscular Hgb Conc 32.4 g/dL (32.0-36.0); Mean Corpuscular Volume 86.9 fL (80.0-100.0); Platelet Count 225 K/uL (130-400); RDW Standard Deviation 44.8 fL (36.4-46.3); Red Blood Count 3.66 M/uL (4.20-5.40); White Blood Count 15.06 K/ul (4.8-10.8)
[2024-08-16 06:27] LABS: BUN Creatinine Ratio 17.5 (10-20); Calcium 8.9 mg/dl (8.6-10.3); Creatinine Clr Calc Pharmacy 28.8 ml/min; Potassium 3.8 mmol/L (3.5-5.1)
--- NOTE | 2024-08-16 07:31 | Hospitalist Progress Note ---
Date of Service August 16, 2024 Assessment & Plan (1) Pneumonia: Plan: Community Acquired PNA - Leukocytosis and tachycardia on presentation, ongoing but downtrending Procal negative, elevated CURB 65 Blood cultures pending - CXR w/ patchy R infiltrate in RML - Remains hemodynamically stable on room air - Continue Ceftriaxone 2 g IV daily and Azithromycin 250 mg daily Pending PO transition (2) Leukocytosis: Plan: - As above (3) S/P cardiac pacemaker procedure: Plan: - Dual-chamber permanent pacemaker d/t MR, tachy-marcela, SVT, and pAFib - Last seen electrophysiology on 07/19/2024. - Continue diltiazem 120 mg daily and Eliquis 2.5 mg BID - Will monitor on telemetry (4) S/P hip hemiarthroplasty: Plan: - S/p arthroplasty in June of 2023 - Ongoing weakness - Negative Hip/Pelvis CR - Continue PT/OT (5) Hyponatremia: Plan: - Acute, on presentation - Resolved Plan Diet: Heart healthy Code status: Full code DVT ppx: Eliquis Admission and Anticipated Discharge Date Admission Date: August 14, 2024 Physical Exam Physical Exam: Gen: NAD, WD/WN HEENT: NCAT, PERRL, EOMI CV: RRR, no m/r/g, S1/S2 normal Resp: CTAB, symmetrical chest rise, breathing non-labored Abd: Soft, NT/ND, +BS, no HSM MSK: Full ROM, normal str, no gross deformities Skin: Warm, dry, pink, no rashes or lesions Results & Data Results & Data Vital Signs (Past 12 Hours) Vital Signs Temp Pulse Resp BP Pulse Ox O2 Del Method 08/16/24 03:30 37.0 C 98 H 18 118/62 98 Room Air 08/15/24 23:39 37.2 C 97 H 19 111/78 97 Room Air 08/15/24 22:30 Room Air 08/15/24 19:55 36.9 C 97 H 18 110/77 97 Room Air
[2024-08-16 07:52] VITALS: PULSE 99
--- NOTE | 2024-08-16 09:35 | Discharge Summary ---
Date of Service August 16, 2024 Admission HPI Per Admitting Provider Patient is an 89-year-old female with past medical history of paroxysmal A-fib status post pacemaker and hypothyroidism, who presents from home for chills, fevers, cough, achiness since Friday. Patient states that she took her temperature this afternoon at home and was 102. She has also been a little confused over this time. She had to go to her sister's today. She has also been having a decreased appetite. Some weakness specifically of the left hip. Denies any headache, visual changes, chest pain, nausea, vomiting, abdominal pain, or rash. Admission Exam Per Admitting Provider Constitutional: well-appearing, no acute distress HEENT: NCAT, no conjunctival injection CV: regular rhythm, no murmur appreciated, extremities well-perfused, no LE edema Resp: CTABL, right lower lobe rhonchi, no increased work of breathing GI: soft, nondistended, nontender, BS normoactive MSK: no gross deformities appreciated Skin: warm, dry, no rash appreciated Neuro: alert, oriented, no focal neurologic deficit appreciated Principal Diagnosis Community Acquired Pneumonia Discharge Exam Gen: NAD, WD/WN HEENT: NCAT, PERRL, EOMI, MMM NECK: Supple w/o LAD CV: RRR, no m/r/g, S1/S2 normal Resp: Faint RLL crackle, symmetrical chest rise, breathing non-labored w/o wheezing/rhonchi/rale Abd: Soft, NT/ND, +BS, no HSM MSK: Full ROM, no gross deformities Skin: Warm, dry, pink, no rashes or lesions Discharge Data Allergies Allergy/AdvReac Type Severity Reaction Status Date / Time epinephrine Allergy Unknown . Verified 08/14/24 19:36 codeine AdvReac Intermediate NAUSEA/VOMI Verified 08/14/24 19:36 TING Consultations 08/14/24 19:46 ED Decision to Admit Stat Hospital Course (1) Pneumonia: Clarissa is a 89F w/ PMH of anemia, pacemaker placement, hip fracture 2/2 osteoporosis, hypothyroidism, pAFib, tachy-marcela syndrome, SVT and MR who presented for chills/fevers/cough since 08/11 and was admitted for PNA on 08/14. (1) Pneumonia: - CXR w/ RML infiltrate concerning for PNA - Leukocytosis on presentation w/ tachycardia, now downtrending Procal negative Blood cultures negative - Hemodynamically stable on room air - S/p IV Ceftriaxone and Azithromycin for 1 days Transitioned to PO Cefdinir and Azithromycin for additional 6 and 2 days, respectively - Patient feeling and eating/drinking well, requesting transition home Has support system nearby, though living alone - Previous EF > 60%, encouraged PO hydration w/ 64 ounces of water daily Given infection and tachycardia, hydration remains important Though ongoing tachycardia likely a/w atenolol hold while inpatient as clinically patient has improved - Recommend CBC w/ PCP within 1 week of discharge to follow leukocytosis If symptoms worsen or cough persists could consider repeat CXR to ensure PNA resolution (2) S/P cardiac pacemaker procedure: - Dual-chamber permanent pacemaker d/t MR, tachy-marcela, SVT, and pAFib - Last seen electrophysiology on 07/19/2024. - Continue diltiazem 120 mg daily and Eliquis 2.5 mg BID Return to home atenolol upon discharge - Monitored inpatient on telemetry (3) S/P hip hemiarthroplasty: Plan: - Left hip arthroplasty June 2023 - Patient reports weakness of the hip - Hip and pelvis x-ray in the ED negative - Seen by PT/OT, w/o acute needs Plan Diet: Heart healthy, vegetarian Code status: Full code DVT ppx: Eliquis Dispo: DC to home (2) Leukocytosis: (3) S/P cardiac pacemaker procedure: (4) S/P hip hemiarthroplasty: (5) Hyponatremia: Total Time Total Time Spent Total Time Spent (In Minutes): See attending attestation Discharge Plan Discharge Items Patient Disposition: Home - Self-Care Reason For Visit: PNEUMONIA Discharge Diagnosis: Community Acquired Pneumonia Activity: Per Instructions section Non-emergency contact: Primary Care Provider and Buyer [employer] Call non-emergency contact if: you have any medication questions and your symptoms worsen Follow-up/Referrals: Angelika Clemens PA-C [Primary Care Provider] - 08/18/24 11:20 am (Hospital follow up on August 18 at 11:20 am with an arrival time of 11:05 am. This appointment is at [address] [place] [address], [address].) Diet: Heart Healthy and Vegetarian (Lacto-Ovo) Ambulatory Orders: Complete Blood Count no Diff (Routine) Timeframe: 1 Week Location: Determined by Patient Ordered By: Felicita Acosta Addtl Attending Provider Instructions: You were admitted to the hospital for management of a Community Acquired Pneumonia. This was treated with IV antibiotics originally and then transitioned to oral antibiotics once you started to feel better. Throughout your admission, you did not require any additional oxygen support. Your heart rate was elevated on admission, but is improving. Because of the elevation in your heart rate and active infection, it is strongly encouraged that you continue to drink 64 ounces of water daily. Please continue to take Azithromycin 250 mg by mouth daily for the next 2 days as well as Cefdinir 300 mg two times daily for the next 6 days. It is recommended to follow up with your physician within one week of discharge. If your symptoms worsen or cough persists despite antibiotic completion, consider repeat chest x ray with your primary care provider. No changes made to previous home medication. Pending Studies at Discharge: No Stand-Alone Forms: [facility] [employer], Smoking Cessation Medications and DC Order Prescriptions: New azithromycin 250 mg Tablet 250 mg PO QAM 2 Days Qty: 2 0RF cefdinir 300 mg Capsule 300 mg PO BID 6 Days Qty: 12 0RF Continued Eliquis 2.5 mg tablet 2.5 mg PO BID Qty: 180 3RF diltiazem HCl 120 mg capsule,extended release 24 hr 120 mg PO DAILY Qty: 90 3RF levothyroxine [Levoxyl] 50 mcg tablet 0 mcg PO DAILY Rx Instructions: LAST FILLED ON 11/20/23 FOR 50 MCG PT DOES NOT KNOW IF SHE IS TAKING IT OR NOT atenolol 50 mg tablet 0 mg PO DAILY Rx Instructions: LAST FILLED ON 10/11/23 FOR 50 MG QD. PT DOES NOT KNOW IF SHES STILL TAKING IT Discharge Orders: Discharge Order (Routine); Ordered 08/16/24 Ordered By: Felicita Acosta Admission Data Admit Date/Time: 08/14/24 20:52 Attending Provider: Sandy Rubalcava Admit Provider: Clarissa Pérez Primary Care Provider: Angelika Clemens Other Providers: Clarissa Pérez; Robbie Jade Other Interventions: Discharge Summary Assessment (RN) Last Done: 12/09/24 14:25 Supervising Physician Co-Signing Physician Notes Attending Physician Supervision Note: I independently interviewed and examined the patient and verified the guy history and physical, reviewed labs and image studies and agree with findings and care plan noted above. Resident Activity Tracking Resident Involvement: Resident Care Provided Care Provided: Adult Hospital Medicine
[2024-08-16] MEDS: AZITHROMYCIN 250 MG TAB PO SCH (10:11)
[2024-08-16] MEDS: CEFDINIR 300 MG CAP PO SCH (10:11)
[2024-08-16 11:10] VITALS: BP 102/75; TEMP 97.3; O2SAT 96
--- NOTE | 2024-08-17 14:00 | Coding Query ---
CODING QUERY To promote full compliance with coding requirements relating to patient care, provider participation is requested in all cases of drilling superintendent uncertainty. Please assist us with the question(s) below: Clinical Indicators: ED Note: * Vitals: Temp - 37.3; Pulse - 107; Resp - 22; BP - 106/66; Pulse Ox - 97 * WBC - 17.85 * Procalcitonin - 0.40 History and Physical: * Pneumonia * Started on ceftriaxone and azithromycin in the ED. Progress Note 08/15/24: * Community-acquired pneumonia with sepsis present on admission (SIRS criteria being white count and tachycardia)improving. Query Question: Without further mention of sepsis in the Discharge Summary, are you able to clarify the following in regards to the diagnosis of sepsis: (x ) Sepsis ruled in ( ) Sepsis ruled out ( ) Other (please specify) ( ) Unable to determine. Thank you Lorna Quigley Principal Diagnosis: "that condition established after study, to be chiefly responsible for occasioning the admission of the patient to the hospital for care." Co-Existing Principal Diagnosis: "when two or more diagnoses equally meet the criteria for principal diagnosis as determined by the circumstances of admission, diagnostic work up, and/or therapy provided, and the Alphabetic Index, Tabular List, or another coding guideline does not provide sequencing direction, any one of the diagnoses may be sequenced first." "When the physician has documented what appears to be a current diagnosis in the body of the record, but has not included the diagnosis in the final diagnostic statement, the physician should be asked whether the diagnosis should be added." (Source Coding [facility] 2 QTR90. p3-4) GRACIA
== END 2024-08-16 14:55 | disposition home or self-care (01) | DRG 871 ==
LOC: ED 17:24 → 2E 20:52 → INTOOBSV 20:52 → SUATTDRO 20:52 → 2E 21:18

== ENCOUNTER 2024-08-24 09:51 | Inpatient (IN) ==
--- NOTE | 2024-08-24 10:17 | Emergency Department Note ---
Impression & Plan Pneumonia, Abdominal pain, Nausea & vomiting ED Provider Note CHIEF COMPLAINT: Nausea, vomiting, weakness, recent pneumonia HISTORY OF PRESENTING ILLNESS: This 89-year-old female patient presents to the emergency department with her sister for evaluation of nausea, vomiting, and weakness. The patient recently had pneumonia and her sister does not feel that she fully resolved. She is still coughing and still feels SOB even with minimal activity. She has been burping more often than normal as well. She has also not had a bowel movement for the past 3 to 4 days and her stomach feels hard per her sister. Denies any urinary symptoms other than decreased urine output because of the trouble eating and drinking from the nausea and vomiting. Denies any fevers. She rates her discomfort a 6/10. She denies any head injury, falls, or trauma. She has a history of colon cancer s/p partial colectomy at least 15 years ago per patient, but did not need chemo or radiation at that time. She also had an appendectomy and hysterectomy years ago, but no other abdominal surgeries per patient. She also has a history of breast cancer that required surgical intervention, chemo, and radiation about 37 years ago. The patient was admitted on 08/14/2024 and discharged on 08/16/2024. Her symptoms started on 08/31. Chest x-ray showed a right middle lobe infiltrate concerning for pneumonia. She also had leukocytosis and tachycardia on presentation. Blood cultures and procalcitonin were negative. The patient was given IV ceftriaxone and azithromycin for 1 day and then transitioned to oral cefdinir and Zithromax for an additional 6 in 2 days respectively. The patient also has a history of paroxysmal A-fib with pacemaker as well as hypothyroidism. She is on Eliquis. REVIEW OF SYSTEMS: See HPI for pertinent positives and pertinent negatives. ALLERGIES: Epinephrine, Codeine MEDICATIONS: See below PAST MEDICAL HISTORY: See below PHYSICAL EXAM: Vital Signs: Vitals are noted on the nurse's note and reviewed by myself. GENERAL: Non toxic in appearance and in no acute distress. SKIN: Capillary reflex less than 2 seconds. HEAD: Normocephalic, atraumatic. EARS: Bilateral external auditory canals clear without tragus tenderness. Bilateral tympanic membranes pearly lindsey without erythema or effusion. No mastoid tenderness bilaterally. EYES: Pupils equal round and reactive to light and accommodation. Conjunctivae without injection, sclerae without icterus. Extraocular movements intact. NOSE: Patent, turbinates inflamed with no discharge. No sinus tenderness. MOUTH: Mucous membranes moist. Airway patent, uvula midline. Pharynx is not erythematous and not edematous without exudate. Pharynx without postnasal drip. No evidence for peritonsillar abscess. NECK: Supple without nuchal rigidity. No lymphadenopathy. HEART: Irregularly irregular rhythm. LUNGS: Clear to auscultation bilaterally without wheezes, rales or rhonchi. No accessory muscle use or retractions. ABDOMEN: Positive bowel sounds x 4. Abdomen is mildly distended. Soft, diffusely tender to palpation, but maximal tenderness in the periumbilical area. No obvious masses or hepatosplenomegaly. No guarding, rigidity, or rebound tenderness. No CVA tenderness. No focal RLQ or LLQ tenderness. NEURO: Patient was alert and oriented. DIFFERENTIAL DIAGNOSIS: Differential diagnosis includes URI, bronchitis, pneumonia, pneumothorax, hemothorax, PE, NM, pericarditis, myocarditis, airway obstruction, aspiration, pulmonary edema, asthma, COPD, CHF, pleurisy, metabolic acidosis, anemia, neoplasm,hepatitis, pancreatitis, cholecystitis, cholelithiasis, appendicitis, kidney stone, pyelonephritis, UTI, gastritis, gastroenteritis, mesenteric adenitis, obstruction, constipation, hernia, abdominal abscess, perforation, diverticulitis, IBD, ischemic colitis, abdominal aortic aneurysm, , ectopic , ovarian cyst, ovarian torsion, acute salpingitis, or others. ED COURSE AND MEDICAL DECISION MAKING: HISTORY FROM INDEPENDENT HISTORIAN: Additional history obtained from the patient's sister MEDICATIONS GIVEN: 500 mL normal saline solution bolus. Zofran 4 mg IV and Pepcid 20 mg IV. Unasyn 3 g IV. MONITOR: Continuous cardiac cath technician: Order was placed for continuous cardiac cath technician. Patient was placed on the cardiac cath technician and continuous pulse ox. Patient was noted to be in normal sinus rhythm at an initial rate of 88 bpm per my interpretation. EKG: EKG was interpreted by myself and Dr. Kaur as atrial paced rhythm at [address] and T wave changes, but no acute abnormalities or evidence for ischemia. INTERPRETATION OF LABS: I interpreted the labs with full lab results as below in the lab section of this note. Pertinent lab results discussed in the MDM section below. INTERPRETATION OF IMAGING: Imaging studies were interpreted by myself and read by radiology as per the imaging section of this note. CTA of the chest with IV contrast showed no evidence for PE. There is a right lower lobe airspace opacity which has improved since chest x-ray on 08/14/2024. This favors pneumonia. Right middle lobe and lingular opacities with mucous plugging and mild bronchiectasis. The findings favor an infectious process, possibly chronic. There is a 2 cm subpleural left lower lobe opacity which is indeterminant, but may reflect sequela of an infectious process. A neoplastic etiology within the differential although considered less likely. A chest CT in 3 months to ensure stability/resolution is recommended. There is distended fluid-filled stomach and esophagus. Gastric outlet obstruction cannot be excluded. NG tube insertion might be considered. CT scan of the abdomen pelvis with IV contrast showed prominence of the stomach with thickening of the pylorus which may be due to the phase of peristalsis. However, correlation for gastric outlet obstruction is recommended. Cholelithiasis without cholecystitis. Diverticulosis without diverticulitis. EXTERNAL RECORDS REVIEWED: I reviewed the patient's recent admission as summarized above. CONSULTATIONS: Dr. Galvan of GI. On-call hospitalist. MDM SUMMARY: I examined the patient. The patient was recently admitted for pneumonia with IV ceftriaxone and azithromycin followed by oral cefdinir and Zithromax. The patient feels like she never fully recovered from her pneumonia. She continues with a cough and shortness of breath. She also has not had a bowel movement in the past 3 to 4 days and is now having abdominal pain, nausea, and vomiting. An IV lock was placed and labs were drawn. The patient was given 500 mL normal saline solution bolus. She was also given Zofran 4 mg IV and Pepcid 20 mg IV with improvement of her nausea and vomiting. The patient declined any medication for pain while in the emergency department. White blood cell count elevated at 14.66. Hemoglobin low, but improved at 11.5. Platelet count elevated at 421. Coags were normal. Sodium 132, chloride 95,, dioxide 20, anion gap 17, BUN 31, and creatinine 1.36. CMP otherwise normal. Magnesium normal. High-sensitivity troponin normal. Lipase elevated at 119 (ULN 82). Lactate and procalcitonin were normal. The patient was unable to give a urine sample while in the emergency department. Respiratory BioFire was negative. Blood cultures pending. CTA of the chest with IV contrast showed no evidence for PE. There is a right lower lobe airspace opacity which has improved since chest x-ray on 08/14/2024. This favors pneumonia. Right middle lobe and lingular opacities with mucous plugging and mild bronchiectasis. The findings favor an infectious process, possibly chronic. There is a 2 cm subpleural left lower lobe opacity which is indeterminant, but may reflect sequela of an infectious process. A neoplastic etiology within the differential although considered less likely. A chest CT in 3 months to ensure stability/resolution is recommended. There is distended fluid-filled stomach and esophagus. Gastric outlet obstruction cannot be excluded. NG tube insertion might be considered. CT scan of the abdomen pelvis with IV contrast showed prominence of the stomach with thickening of the pylorus which may be due to the phase of peristalsis. However, correlation for gastric outlet obstruction is recommended. Cholelithiasis without cholecystitis. Diverticulosis without diverticulitis. I had a meaningful discussion about this patient with Dr. Kaur who agrees with my assessment and the treatment plan. The patient was given Unasyn 3 g IV after the blood cultures were drawn for treatment of the persisting pneumonia. I spoke with Dr. Galvan of GI. He suspected the patient's symptoms were likely secondary to peristalsis and constipation rather than a true gastric outlet obstruction. He recommended that the patient did not need an NG tube placed unless she developed nausea and vomiting again. If she did develop nausea and vomiting, an NG tube should be placed. I placed an order for an NG tube and let nursing staff know that it should be placed if she developed nausea and/or vomiting. He recommended the patient be treated for constipation with either enemas or suppositories. He presented to the ER to evaluate the patient. Please refer to his dictation for further details. I spoke with the on-call hospitalist who agreed to admit the patient for further evaluation and treatment. Please refer to their dictation for further details. The patient's care was transferred in stable condition. 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 Encounter for pre-operative examination Hypothyroidism Tachy-marcela syndrome (Chronic) Paroxysmal A-fib (Chronic) Hip fracture, left Mitral regurgitation Supraventricular tachycardia (Chronic) Medical History (Updated 08/24/24 @ 18:52 by Martina Kemp PA-C) Hyponatremia Hip pain, left Leukocytosis Confusion Surgical History (Updated 08/19/24 @ 00:07 by Jesse Baez) S/P hip hemiarthroplasty Social History Smoking Status: Never smoker Do You Dip or Chew Tobacco: No; Hx Alcohol Use: No Hx Substance Use: No Preferred Language: [place] Communication Ability: Effective Comedian Required: No Beliefs That Will Affect Care: None Current Living Situation: Alone Feels Safe at Home: Yes Assistive Devices: Denture - Upper, Glasses and Walker Allergies Allergies Allergy/AdvReac Type Severity Reaction Status Date / Time epinephrine Allergy Unknown . Verified 08/14/24 19:36 codeine AdvReac Intermediate NAUSEA/VOMI Verified 08/14/24 19:36 TING Home Meds Home Medications Medication Instructions Recorded Confirmed apixaban 2.5 mg tablet (Eliquis) 0 mg PO BID 08/24/24 08/24/24 Previous Rx's Medication Instructions Recorded diltiazem HCl 120 mg capsule,24 120 mg PO DAILY #90 caps 04/27/24 hr,extended release Results & Data (ED) Vital Signs Vital Signs - 24 hr 08/24/24 10:00 08/24/24 10:24 08/24/24 10:24 Temperature 36.0 C L Temperature Source Temporal Artery Scan Pulse Rate 98 H 110 H Pulse Rate from SpO2 Sensor Respiratory Rate 20 15 Respiratory Effort / Characteristics Non-Labored Spontaneous Respiratory Depth Normal Blood Pressure 128/82 145/83 H Blood Pressure Mean 97 114 Pulse Oximetry 99 Oxygen Delivery Method Room Air Sepsis Recent Fever Within 48 Hours No Sepsis New/Unexplained Change in Mental Status N/A Sepsis Action Taken by Nursing No Action Required 08/24/24 10:25 08/24/24 10:30 08/24/24 10:33 Temperature Temperature Source Pulse Rate 85 96 H Pulse Rate from SpO2 Sensor 90 Respiratory Rate 17 Respiratory Effort / Characteristics Respiratory Depth Blood Pressure 132/101 H Blood Pressure Mean 112 Pulse Oximetry 90 Oxygen Delivery Method Sepsis Recent Fever Within 48 Hours Sepsis New/Unexplained Change in Mental Status Sepsis Action Taken by Nursing 08/24/24 10:38 08/24/24 10:57 08/24/24 11:00 Temperature Temperature Source Pulse Rate 103 H 92 H Pulse Rate from SpO2 Sensor 86 Respiratory Rate 17 Respiratory Effort / Characteristics Respiratory Depth Blood Pressure 140/80 Blood Pressure Mean 84 Pulse Oximetry 97 Oxygen Delivery Method Room Air Sepsis Recent Fever Within 48 Hours Sepsis New/Unexplained Change in Mental Status Sepsis Action Taken by Nursing 08/24/24 11:03 08/24/24 11:12 08/24/24 11:31 Temperature Temperature Source Pulse Rate 102 H Pulse Rate from SpO2 Sensor 82 Respiratory Rate 21 23 Respiratory Effort / Characteristics Respiratory Depth Blood Pressure 136/90 Blood Pressure Mean 105 Pulse Oximetry 92 Oxygen Delivery Method Sepsis Recent Fever Within 48 Hours Sepsis New/Unexplained Change in Mental Status Sepsis Action Taken by Nursing 08/24/24 12:12 08/24/24 12:24 08/24/24 12:30 Temperature Temperature Source Pulse Rate 97 H 87 Pulse Rate from SpO2 Sensor 90 87 Respiratory Rate 21 17 Respiratory Effort / Characteristics Respiratory Depth Blood Pressure 136/76 Blood Pressure Mean 98 Pulse Oximetry 99 99 Oxygen Delivery Method Sepsis Recent Fever Within 48 Hours Sepsis New/Unexplained Change in Mental Status Sepsis Action Taken by Nursing 08/24/24 12:33 08/24/24 13:00 08/24/24 13:00 Temperature Temperature Source Pulse Rate 118 H 90 Pulse Rate from SpO2 Sensor 89 Respiratory Rate 18 17 Respiratory Effort / Characteristics Respiratory Depth Blood Pressure 116/73 Blood Pressure Mean 91 Pulse Oximetry 96 Oxygen Delivery Method Sepsis Recent Fever Within 48 Hours Sepsis New/Unexplained Change in Mental Status Sepsis Action Taken by Nursing 08/24/24 13:33 08/24/24 13:51 08/24/24 13:52 Temperature Temperature Source Pulse Rate 83 102 H Pulse Rate from SpO2 Sensor Respiratory Rate 22 18 Respiratory Effort / Characteristics Respiratory Depth Blood Pressure 135/75 Blood Pressure Mean 100 Pulse Oximetry Oxygen Delivery Method Sepsis Recent Fever Within 48 Hours Sepsis New/Unexplained Change in Mental Status Sepsis Action Taken by Nursing 08/24/24 13:54 08/24/24 14:00 08/24/24 14:01 Temperature Temperature Source Pulse Rate 90 86 Pulse Rate from SpO2 Sensor Respiratory Rate 20 Respiratory Effort / Characteristics Respiratory Depth Blood Pressure 136/70 Blood Pressure Mean 91 Pulse Oximetry Oxygen Delivery Method Sepsis Recent Fever Within 48 Hours Sepsis New/Unexplained Change in Mental Status Sepsis Action Taken by Nursing Laboratory Data 08/24/24 10:27 08/24/24 10:27 Lab Results 08/24/24 08/24/24 08/24/24 Range/Units 10:27 10:40 11:00 WBC 14.66 H (4.8-10.8) K/ul RBC 4.08 L (4.20-5.40) M/uL Hgb 11.5 L (12.0-16.0) g/dl Hct 35.5 L (37.0-47.0) % MCV 87.0 (80.0-100.0) fL MCH 28.2 (25.0-34.0) pg MCHC 32.4 (32.0-36.0) g/dL RDW Std Deviation 43.8 (36.4-46.3) fL RDW Coeff of Rk 14.2 (11.5-14.5) % Plt Count 421 H (130-400) K/uL MPV 9.4 (9.4-12.4) fL Immature Gran % (Auto) 0.4 % Neut % (Auto) 88.3 % Lymph % (Auto) 5.1 % Cook % (Auto) 5.7 % Eos % (Auto) 0.2 % Baso % (Auto) 0.3 % Neut # (Auto) 12.94 H (1.40-6.50) K/uL Lymph # (Auto) 0.75 L (1.20-3.40) K/uL Cook # (Auto) 0.84 H (0.11-0.59) K/uL Eos # (Auto) 0.03 (0.00-0.50) K/uL Baso # (Auto) 0.04 (0.00-0.20) K/uL Immature Gran # (Auto) 0.06 (0.01-0.20) K/uL PT 10.9 (9.0-12.0) Seconds INR 1.0 (0.9-1.1) APTT 24 (21-31) Seconds PTT Ratio 0.9 Sodium 132 L (136-145) mmol/L Potassium 4.2 (3.5-5.1) mmol/L Chloride 95 L (98-107) mmol/L Carbon Dioxide 20 L (21-32) mmol/L Anion Gap 17 H (3-11) BUN 31 H (6-23) mg/dl Creatinine 1.36 H (0.6-1.2) mg/dl Est Cr Clr Drug Dosing Not Reportable eGFR 37.47 BUN/Creatinine Ratio 22.8 H (10-20) Glucose 80 (70-99(Fasting)) mg/dl Lactate 1.8 (0.4-2.0) mmol/L Calcium 9.5 (8.6-10.3) mg/dl Magnesium 2.2 (1.7-2.4) mg/dl Total Bilirubin 0.6 (0.2-1.0) mg/dl AST 22 (13-39) U/L ALT 13 (7-52) U/L Alkaline Phosphatase 66 (34-104) U/L Troponin I High Sens 11.3 (0-14) pg/ml Total Protein 8.1 (6.0-8.3) gm/dl Albumin 3.8 (3.4-5.0) gm/dl Globulin 4.3 H (2.5-4.0) gm/dl Albumin/Globulin Ratio 0.9 (0.9-2) Lipase 119 H (11-82) U/L Procalcitonin 0.08 (0-0.5) ng/ml Adenovirus (PCR) Not Detected (NotDetected) B. pertussis DNA (PCR) Not Detected (NotDetected) B.parapertussis DNA PCR Not Detected (NotDetected) C. pneumoniae DNA (PCR) Not Detected (NotDetected) Coronavirus OC43 (PCR) Not Detected (NotDetected) Coronavirus HKU1 (PCR) Not Detected (NotDetected) Coronavirus 229E (PCR) Not Detected (NotDetected) SARS-CoV-2 (PCR) Not Detected (NotDetected) Coronavirus NL63 (PCR) Not Detected (NotDetected) Human Metapneumovir PCR Not Detected (NotDetected) Influenza Type A (PCR) Not Detected (NotDetected) Influenza Type B (PCR) Not Detected (NotDetected) M. pneumoniae (PCR) Not Detected (NotDetected) Parainfluenza 1 (PCR) Not Detected (NotDetected) Parainfluenza 2 (PCR) Not Detected (NotDetected) Parainfluenza 3 (PCR) Not Detected (NotDetected) Parainfluenza 4 (PCR) Not Detected (NotDetected) RSV (PCR) Not Detected (NotDetected) Entero/Rhino (PCR) Not Detected (NotDetected) Administered Medications Bisacodyl (Bisacodyl 10 Mg Supp) 10 mg AK BID LOUIE Stop: 09/23/24 14:29 Last Admin: 08/24/24 15:28 Dose: 10 mg Documented By: PRIYANK Dextrose/Sodium Chloride (D5w And Nss) 1,000 mls @ 80 mls/hr IV .[id number] LOUIE Stop: 08/25/24 14:44 Last Admin: 08/24/24 15:28 Dose: 80 mls/hr Documented By: PRIYANK Miscellaneous (Patient's Height &/Or Weight Needed) 1 each N/A Q2H LOUIE Stop: 09/23/24 17:44 Last Admin: 08/24/24 18:28 Dose: 1 each Documented By: SYMONE Discontinued Medications Sodium Chloride (Nss) 500 mls @ 999 mls/hr IV .Q31M ONE Stop: 08/24/24 11:08 Last Infusion: 08/24/24 11:41 Dose: Infused Documented By: Admin: 08/24/24 10:55 Dose: 999 mls/hr Documented By: CHERISE Famotidine (Pepcid 20mg Iv Push) 20 mg in 5 mls @ 2.5 mls/min IV NOW STA Stop: 08/24/24 10:39 Last Admin: 08/24/24 10:55 Dose: 2.5 mls/min Documented By: CHERISE Ampicillin Sodium/Sulbactam Sodium (Unasyn) 3,000 mg in 100 mls @ 200 mls/hr IV NOW STA Stop: 08/24/24 13:19 Last Infusion: 08/24/24 14:54 Dose: Infused Documented By: Admin: 08/24/24 13:49 Dose: 200 mls/hr Documented By: CHERIES Ioversol (Optiray 320 125ml) 119 ml IV ONCE ONE Stop: 08/24/24 12:03 Last Admin: 08/24/24 11:56 Dose: 119 ml Documented By: NADJA Metoclopramide HCl (Metoclopramide Hcl Inj 5 Mg/Ml 2 Ml Vial) 10 mg IV Q6H LOUIE Stop: 09/23/24 14:14 Last Admin: 08/24/24 14:57 Dose: Not Given Documented By: CHERISE Ondansetron HCl (Ondansetron Inj 2 Mg/Ml 2 Ml Vial) 4 mg IV NOW STA Stop: 08/24/24 10:39 Last Admin: 08/24/24 10:55 Dose: 4 mg Documented By: KULWINDERK Imaging Data Radiologist's Impression: Chest CTA 08/24/24 10:38 CT ANGIOGRAPHY OF THE CHEST, PULMONARY EMBOLUS PROTOCOL CLINICAL HISTORY: chest pain, SOB, eval PE vs pneumonia COMPARISON STUDY: Chest radiograph August 14, 2024. TECHNIQUE: Following IV administration of Optiray, helical axial images of the chest were obtained utilizing the pulmonary embolus protocol. Maximal intensity projections and sagittal and coronal reformats were viewed on an independent 3D workstation. IV contrast was administered without complication. Automated exposure control was utilized for the study. A dose lowering technique was utilized adhering to the principles of ALARA. CT DOSE: 1145.38 mGy.cm FINDINGS: A left subclavian pacer is in place. There are postoperative findings within the right breast. There are no pulmonary emboli. No thoracic aortic dissection is present. The heart is mildly enlarged. There are no enlarged axillary, mediastinal or hilar lymph nodes. The stomach is distended and fluid- filled. The esophagus is also fluid-filled and mildly distended. No pneumothorax or pleural effusion is present. Right middle lobe and lingular airspace opacity with mild mucus plugging are present. There are also patchy right lower lobe airspace opacities and a subpleural 2 cm left lower lobe opacity on image 39. Right lower lung opacity is improved since chest radiograph August 14, 2024. Abdomen and pelvis CT will be reported separately. IMPRESSION: 1. No pulmonary emboli identified. 2. Right lower lobe airspace opacity, improved since chest radiograph August 14, 2024. This favors pneumonia. 3. Right middle lobe and lingular opacities with mucus plugging and mild bronchiectasis. The findings favor an infectious process, possibly chronic. 4. 2 cm subpleural left lower lobe opacity which is indeterminate but may reflect sequela of an infectious process. A neoplastic etiologies within the differential although considered less likely. A chest CT in 3 months to ensure stability/resolution is recommended. 5. Distended and fluid-filled stomach and esophagus. Gastric outlet obstruction cannot be excluded. Nasogastric tube insertion might be considered. ACT 112: Negative or not required by law. Electronically signed by: Rommel Perkins M.D. 08/24/2024 12:37 PM Abdomen/Pelvis CT 08/24/24 10:39 CT abd pelvis IV con only CLINICAL HISTORY: abdominal pain, decreased BMs, eval obs TECHNIQUE: Helical axial images of the abdomen and pelvis were obtained and displayed. Automated dose lowering techniques and/or adjustment according to patient size were utilized for this exam. This exam was performed with intravenous contrast. COMPARISON: Comparison is made to cranial ultrasound 12/25/2023 FINDINGS: Lower chest: For findings above the diaphragm, please see CT chest performed same day. Liver: 20 mm hypodensity in the liver is seen. Gallbladder and biliary tree: Cholelithiasis is seen without evidence of cholecystitis. A stone is seen likely in the cystic duct. No biliary ductal obstruction is seen. Pancreas: Unremarkable, no focal lesions. Spleen: Unremarkable. Adrenals: Unremarkable. Kidneys and ureters: Unremarkable. Bladder: Unremarkable. Reproductive organs: Unremarkable. Bowel: Diverticulosis is seen without evidence of diverticulitis. Thickening of the pylorus is seen with prominence of the stomach. Postsurgical changes are seen in the right hemicolon. Lymph nodes Retroperitoneal: Unremarkable. Pelvic: Unremarkable. Mesenteric: Unremarkable. Peritoneum: Normal. Vessels: Atherosclerotic calcifications are seen. Abdominal wall: Bilateral fat-containing inguinal hernias are seen. Bones: Degenerative changes in the visualized spine. IMPRESSION: 1. Prominence of the stomach with thickening of the pylorus which may be due to phase of peristalsis. However correlation for gastric outlet obstruction is recommended. 2. Cholelithiasis without cholecystitis. 3. Diverticulosis without diverticulitis. 4. Additional findings as above. ACT 112: Negative or not required by law. Electronically signed by: Jim Omalley M.D. 08/24/2024 12:28 PM Discharge Plan Visit Data Chief Complaint: Flu Like Symptoms Stated Complaint: VOMITING/NAUSEA, WEAKNESS, HAD/HAS PNEUMONIA ED Provider: Eleno Kaur ED Midlevel Provider: Martina Kemp Discharge Problem: Pneumonia, Abdominal pain, Nausea & vomiting Patient Disposition: Admitted As Inpatient Condition: Good Discharge Instructions Interventions: ED Discharge Assessment Last Done: 08/24/24 16:07 Discharge Problem: Pneumonia Qualifiers: Pneumonia type: due to unspecified organism Laterality: unspecified laterality Lung location: unspecified part of lung Qualified Code(s): J18.9 - Pneumonia, unspecified organism Abdominal pain Qualifiers: Abdominal location: generalized Qualified Code(s): R10.84 - Generalized abdominal pain Nausea & vomiting Qualifiers: Vomiting type: unspecified Qualified Code(s): R11.2 - Nausea with vomiting, unspecified
[2024-08-24] MEDS: FAMOTIDINE 20MG IV PUSH 20 MG/5 ML SYR IV STA (10:55)
[2024-08-24] MEDS: ONDANSETRON INJ 2 MG/ML 2 ML VIAL IV STA (10:55)
[2024-08-24] MEDS: SODIUM CHLORIDE 0.9% 500 ML IV ONE (10:55)
[2024-08-24 11:03] LABS: Basophils # (auto) 0.04 K/uL (0.00-0.20); Basophils % (auto) 0.3 %; Eosinophils # (auto) 0.03 K/uL (0.00-0.50); Eosinophils % (auto) 0.2 %; Hematocrit (blood only) 35.5 % (37.0-47.0); Hemoglobin 11.5 g/dl (12.0-16.0); Immature Granulocytes # (auto) 0.06 K/uL (0.01-0.20); Immature Granulocytes % (auto) 0.4 %; Lymphocytes # (auto) 0.75 K/uL (1.20-3.40); Lymphocytes % (auto) 5.1 %; Mean Corpuscular Hemoglobin 28.2 pg (25.0-34.0); Mean Corpuscular Hgb Conc 32.4 g/dL (32.0-36.0); Mean Platelet Volume 9.4 fL (9.4-12.4); Monocytes # (auto) 0.84 K/uL (0.11-0.59); Monocytes % (auto) 5.7 %; Neutrophils # (auto) 12.94 K/uL (1.40-6.50); Neutrophils % (auto) 88.3 %; Platelet Count 421 K/uL (130-400); RDW Coefficient of Variation 14.2 % (11.5-14.5); RDW Standard Deviation 43.8 fL (36.4-46.3); Red Blood Count 4.08 M/uL (4.20-5.40); White Blood Count 14.66 K/ul (4.8-10.8)
[2024-08-24 11:28] LABS: Alanine Aminotransferase 13 U/L (7-52); Albumin Globulin Ratio 0.9 (0.9-2); Albumin Level 3.8 gm/dl (3.4-5.0); Alkaline Phosphatase 66 U/L (34-104); Anion Gap 17 (3-11); Aspartate Aminotransferase 22 U/L (13-39); BUN Creatinine Ratio 22.8 (10-20); Bilirubin,Total 0.6 mg/dl (0.2-1.0); Blood Urea Nitrogen 31 mg/dl (6-23); Calcium 9.5 mg/dl (8.6-10.3); Carbon Dioxide 20 mmol/L (21-32); Chloride 95 mmol/L (98-107); Globulin 4.3 gm/dl (2.5-4.0); Glucose 80 mg/dl (70-99(Fasting)); Lipase 119 U/L (11-82); Magnesium 2.2 mg/dl (1.7-2.4); Potassium 4.2 mmol/L (3.5-5.1); Sodium 132 mmol/L (136-145); Total Protein 8.1 gm/dl (6.0-8.3)
[2024-08-24 11:30] LABS: Partial Thromboplastin Ratio 0.9; Partial Thromboplastin Time 24 Seconds (21-31); Prothrombin Time 10.9 Seconds (9.0-12.0)
[2024-08-24 11:35] LABS: Troponin I High Sensitivity 11.3 pg/ml (0-14)
[2024-08-24] MEDS: OPTIRAY 320 125ml IV ONE (11:56)
[2024-08-24 12:07] LABS: Adenovirus PCR Not Detected (NotDetected); Bordetella parapertussis PCR Not Detected (NotDetected); Bordetella pertussis PCR Not Detected (NotDetected); Chlamydia pneumoniae PCR Not Detected (NotDetected); Coronavirus 229E PCR Not Detected (NotDetected); Coronavirus CoV-2 (COVID19)PCR Not Detected (NotDetected); Coronavirus HKU1 PCR Not Detected (NotDetected); Coronavirus NL63 PCR Not Detected (NotDetected); Coronavirus OC43PCR Not Detected (NotDetected); Human Metapneumovirus PCR Not Detected (NotDetected); Influenza A PCR Not Detected (NotDetected); Influenza B PCR Not Detected (NotDetected); Mycoplasma pneumoniae PCR Not Detected (NotDetected); Parainfluenza Virus 1 PCR Not Detected (NotDetected); Parainfluenza Virus 2 PCR Not Detected (NotDetected); Parainfluenza Virus 3 PCR Not Detected (NotDetected); Parainfluenza Virus 4 PCR Not Detected (NotDetected); Respiratory Syncytial VirusPCR Not Detected (NotDetected); Rhinovirus/Enterovirus PCR Not Detected (NotDetected)
--- NOTE | 2024-08-24 12:30 | CT Scan Report ---
CT abd pelvis IV con only CLINICAL HISTORY: abdominal pain, decreased BMs, eval obs TECHNIQUE: Helical axial images of the abdomen and pelvis were obtained and displayed. Automated dose lowering techniques and/or adjustment according to patient size were utilized for this exam. This e xam was performed with intravenous contrast. COMPARISON: Comparison is made to cranial ultrasound 12/25/2023 FINDINGS: Lower chest: For findings above the diaphragm, please see CT chest performed same day. Liver: 20 mm hypodensity in the liver is seen. Gallbladder and biliary tree: Cholelithiasis is seen without evidence of cholecystitis. A stone is se en likely in the cystic duct. No biliary ductal obstruction is seen. Pancreas: Unremarkable, no focal lesions. Spleen: Unremarkable. Adrenals: Unremarkable. Kidneys and ureters: Unremarkable. Bladder: Unremarkable. Reproductive organs: Unremarkable. Bowel: Diverticulosis is seen without evidence of diverticulitis. Thickening of the pylorus is seen w ith prominence of the stomach. Postsurgical changes are seen in the right hemicolon. Lymph nodes Retroperitoneal: Unremarkable. Pelvic: Unremarkable. Mesenteric: Unremarkable. Peritoneum: Normal. Vessels: Atherosclerotic calcifications are seen. Abdominal wall: Bilateral fat-containing inguinal hernias are seen. Bones: Degenerative changes in the visualized spine. IMPRESSION: 1. Prominence of the stomach with thickening of the pylorus which may be due to phase of peristalsis . However correlation for gastric outlet obstruction is recommended. 2. Cholelithiasis without cholecystitis. 3. Diverticulosis without diverticulitis. 4. Additional findings as above. ACT 112: Negative or not required by law. Electronically signed by: Jim Omalley M.D. 08/24/2024 12:28 PM
--- NOTE | 2024-08-24 12:38 | CT Scan Report ---
CT ANGIOGRAPHY OF THE CHEST, PULMONARY EMBOLUS PROTOCOL CLINICAL HISTORY: chest pain, SOB, eval PE vs pneumonia COMPARISON STUDY: Chest radiograph August 14, 2024. TECHNIQUE: Following IV administration of Optiray, helical axial images of the chest were obtained ut ilizing the pulmonary embolus protocol. Maximal intensity projections and sagittal and coronal refor mats were viewed on an independent 3D workstation. IV contrast was administered without complication . Automated exposure control was utilized for the study. A dose lowering technique was utilized adh ering to the principles of ALARA. CT DOSE: 1145.38 mGy.cm FINDINGS: A left subclavian pacer is in place. There are postoperative findings within the right wilber ast. There are no pulmonary emboli. No thoracic aortic dissection is present. The heart is mildly enl arged. There are no enlarged axillary, mediastinal or hilar lymph nodes. The stomach is distended and fluid-filled. The esophagus is also fluid-filled and mildly distended. No pneumothorax or pleural ef fusion is present. Right middle lobe and lingular airspace opacity with mild mucus plugging are prese nt. There are also patchy right lower lobe airspace opacities and a subpleural 2 cm left lower lobe o pacity on image 39. Right lower lung opacity is improved since chest radiograph August 14, 2024. Abd omen and pelvis CT will be reported separately. IMPRESSION: 1. No pulmonary emboli identified. 2. Right lower lobe airspace opacity, improved since chest radiograph August 14, 2024. This favors p neumonia. 3. Right middle lobe and lingular opacities with mucus plugging and mild bronchiectasis. The findings favor an infectious process, possibly chronic. 4. 2 cm subpleural left lower lobe opacity which is indeterminate but may reflect sequela of an infec tious process. A neoplastic etiologies within the differential although considered less likely. A shekhar st CT in 3 months to ensure stability/resolution is recommended. 5. Distended and fluid-filled stomach and esophagus. Gastric outlet obstruction cannot be excluded. N asogastric tube insertion might be considered. ACT 112: Negative or not required by law. Electronically signed by: Rommel Perkins M.D. 08/24/2024 12:37 PM
[2024-08-24] MEDS: AMPICILLIN/SULBACTAM SOD 3,000 MG/100 ML BAG IV STA (13:49)
--- NOTE | 2024-08-24 14:14 | History & Physical Report ---
Date of Service August 24, 2024 Assessment & Plan (1) Gastric outlet obstruction: Plan: 89 y/o with PMH of Afib s/p cardiac pace maker, hypothyroidism here due to nausea, vomiting and general weakness Patient was recently admitted from - .9 for pneumonia, she finished antibiotics Abdomen CT showed extensive stomach distention with thickening of the pylorus, correlation of gastric outlet obstruction GI consulted, appreciated recommendations - May be due to phase peristalsis - NGT place on ED for decompression - Dulcolax for constipation Zofran as needed for nausea NPO IV D5W / NSS 80 ml/hr KUB AM BMP, CBC AM (2) Pneumonia: Plan: Possible aspiration pneumonia in the setting of Gastric distention Leukocytosis , no fever CTA: right lower lobe opacity, improved from previous Unasyn 3g q6hr CBC AM (3) Hypothyroidism: Plan: TSH AM continue Synthroid (4) S/P cardiac pacemaker procedure: Plan: Dual chamber pacemaker Last seen electrophysiology on 07/19/2024. History of mitral regurgitation, tachybradycardia syndrome, SVT, and paroxysmal A-fib. This is well-controlled with pacemaker. Will continue on diltiazem 120 mg and Eliquis 2.5 twice daily. Will monitor on telemetry. (5) High anion gap metabolic acidosis: Plan: Suspected secondary to starvation ketones Lactate acid: normal Anion mis 17, Bicarb 20 VB.31 acidosis, CO2: 39 Ketones + on urine Magnesium and phosphorus ordered to monitor refeeding syndrome D5W/NSS 80 ml/hr will consult nutrition, due to concern of malnutrition Plan FEN: NPO Code status: Full code DVT ppx: Eliquis consult: Gastroenterology Dispo:Telemetry History of Present Illness Primary Care Provider: Angelika Clemens PA-C 89 y/o with PMH of Afib s/p cardiac pace maker, hypothyroidism here due to nausea, vomiting and general weakness. she refers last bowel movement was 4 days ago. She started having vomiting and nausea today. Had 2 big vomiting episodes. She was recently admitted to our service due to pneumonia. she was discharge with antibiotics which she finished them last week. She refers eating and drinking less water than usual. And had been feeling very weak and tired. Her nausea resolved after IV Zofran in the Ed. She refers burping a lot. Denied any blood on stools. Denied any chest pain, SOB, palpitation, fever, cough, runny, nose, chills, dizziness or any other symptoms. she has history of colon cancer with s/p partial colectomy 15 years ago, no chemo or radiation. She has a history of breast cancer, required surgery and radiation more than 30 years ago. she lives alone, take care of her self Ed course: Iv zofran.Unasyn 3 g IV Lab remarkable with: leukocytosis of 14.66, Hgb of 11.5. High anion metabolic acidosis: Anion gap of 17, Bicarb 20. Hyponatremia of 132. Lipase of 119. UA positive for ketones 3+ and WBC. VBG: PH 7.31, PCO2: 39, HCO3 [address] showed extensive stomach distention with thickening of the pylorus, correlation of gastric outlet obstruction. Allergies Allergy/AdvReac Type Severity Reaction Status Date / Time epinephrine Allergy Unknown . Verified 08/14/24 19:36 codeine AdvReac Intermediate NAUSEA/VOMI Verified 08/14/24 19:36 TING Home Medications Medication Instructions Recorded Confirmed Type diltiazem HCl 120 mg capsule,24 120 mg PO DAILY #90 caps 04/27/24 08/24/24 Rx hr,extended release apixaban 2.5 mg tablet (Eliquis) 0 mg PO BID 08/24/24 08/24/24 History Past Med/Surg History Problem List (Updated 08/24/24 @ 18:52 by Martina Kemp PA-C) Nausea & vomiting (Acute) Abdominal pain (Acute) Constipation High anion gap metabolic acidosis Gastric outlet obstruction Pneumonia (Acute) Acute blood loss anemia DVT prophylaxis UTI (urinary tract infection) Status cardiac pacemaker 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 Encounter for pre-operative examination Hypothyroidism Tachy-marcela syndrome (Chronic) Paroxysmal A-fib (Chronic) Hip fracture, left Mitral regurgitation Supraventricular tachycardia (Chronic) Medical History (Updated 08/24/24 @ 18:52 by Martina Kemp PA-C) Hyponatremia Hip pain, left Leukocytosis Confusion Surgical History (Updated 08/19/24 @ 00:07 by Jesse Baez) S/P hip hemiarthroplasty Social History Smoking Status: Never smoker Do You Dip or Chew Tobacco: No; Hx Alcohol Use: No Hx Substance Use: No Preferred Language: Thai Communication Ability: Effective Radio Time Buyer Required: No Beliefs That Will Affect Care: None Current Living Situation: Alone Other Information That Helps Us Care for You: No Feels Safe at Home: Yes Safety Concerns: Feels Safe At This Time Assistive Devices: Denture - Upper, Glasses and Walker Review of Systems Review of Systems: as per HPI Physical Exam Constitutional: WD/WN, vitals as above Eyes: PERRL, conjunctivae normal, anicteric sclerae Respiratory: normal respiratory effort, lungs clear to auscultation Cardiovascular: Rate/Rhythm: + irregularly irregular Heart Sounds: normal S1 and normal S2 Gastrointestinal (Abdomen): normal bowel sounds, soft, nontender, no hepatosplenomegaly Skin: no rashes, warm and dry Results & Data Results & Data Vital Signs (Past 12 Hours) Vital Signs Temp Pulse Resp BP Pulse Ox O2 Del Method 08/24/24 14:01 86 08/24/24 13:33 83 22 08/24/24 13:00 116/73 08/24/24 13:00 90 17 08/24/24 12:33 118 H 18 96 08/24/24 12:30 136/76 08/24/24 12:24 87 17 99 08/24/24 12:12 97 H 21 99 08/24/24 11:31 136/90 08/24/24 11:12 23 08/24/24 11:03 102 H 21 92 08/24/24 11:00 140/80 08/24/24 10:57 92 H 17 97 08/24/24 10:38 103 H Room Air 08/24/24 10:33 96 H 17 90 08/24/24 10:30 132/101 H 08/24/24 10:25 85 08/24/24 10:24 110 H 15 08/24/24 10:24 145/83 H 08/24/24 10:00 36.0 C L 98 H 20 128/82 99 Room Air Code Status & VTE Plan VTE Prophylaxis Plan VTE Prophylaxis will be ordered: Yes Supervising Physician Co-Signing Physician Notes I personally saw and examined the patient. I independently reviewed the labs, EKG, imaging, problem list, medication list, past medical history and family history. I verified all guy points and agree with resident physician Dr Fatmata King MD with the following exceptions and/or additions: 89 year old female presents to the ER following recent pneumonia diagnosis with feeling like she hasn't completely recovered and ongoing nausea and vomiting O/E HS irregular rhythm, regular rate, no murmurs, Chest bibasal crackles, no wheezing, Abdo SNT s/p NG tube insertion A/P Possible gastric outlet obstruction - NG tube given large size of stomach on CT, would not stimulate peristalsis without this in place discussed with GI and metoclopramide discontinued. Agree with trial of suppositories. If output from NG tube is minimal can likely advance diet but if ongoing NG tube drainage recommend EGD to assess for true GOO Aspiration pneumonia - possible just pneumonitis but high risk, will continue on Unasyn High anion gap metabolic acidosis - suspect secondary to starvation ketosis, should resolve with D5 and eventual diet, violin tutor consult Resident Activity Tracking Resident Involvement: Resident Care Provided Care Provided: Adult Hospital Medicine
--- NOTE | 2024-08-24 14:17 | Gastrointestinal Consultation ---
Date of Consultation August 24, 2024 Assessment & Plan (1) Constipation: Patient has had nausea, vomiting, and constipation. She has seen some improvement in upper GI symptoms since coming to the hospital. She had CT showing Prominence of the stomach with thickening of the pylorus which may be due to phase of peristalsis. However correlation for gastric outlet obstruction is recommended. GI was asked to see patient in the ED. Patient was seen and examined with Dr. Galvan. We feel at this time that likely this is more constipation related than a gastric outlet obstruction. - will write for dulcolax suppositories bid to see if we can get her bowels moving. - initially we were going to write for reglan, but given abdominal distention, will hold off on reglan. - since holding off on reglan, would recommend an NG tube. - will continue to follow. Supervising Physician Co-Signing Physician Notes I personally saw and examined the patient. I have reviewed the chart and agree with the documentation provided by the PICKER including discussion about the assessment, treatment and plan. Briefly, 89 year old female who presented to the emergency department with her sister for evaluation of nausea, vomiting, and weakness that has been ongoing the past few days. The patient recently had pneumonia and was treated with antibiotics. She admits she had been eating well prior to a few days ago. She did develop some constipation. Upon evaluation in the ED, she underwent a CT showing Prominence of the stomach with thickening of the pylorus which may be due to phase of peristalsis. She has passed minimal gas and no bowel movement for the last for 5 days. She has history of colon cancer and her last colonoscopy was 10 years ago. Question of GOO versus just a distended stomach is noted. Patient denies any abdominal pain and her nausea has improved with Zofran. I could not view the abdominal CT but the hospitalist kindly sent me images of the CT and she does have a rather distended stomach. Lets go ahead and get an NG tube to decompress her and start with Dulcolax twice daily. We supportive care for now will see how she does clinically to see if she needs an EGD to evaluate her pylorus. Supportive care for now History of Present Illness Reason for Consultation: abnormal CT Requesting Physician: ER History of Present Illness Patient is an 89 year old female who presented to the emergency department with her sister for evaluation of nausea, vomiting, and weakness that has been ongoing the past few days. The patient recently had pneumonia and was treated with antibiotics. She admits she had been eating well prior to a few days ago. She did develop some constipation. Upon evaluation in the ED, she underwent a CT showing Prominence of the stomach with thickening of the pylorus which may be due to phase of peristalsis. However correlation for gastric outlet obstruction is recommended. Because of this, GI was asked to come down and see her. Patient admits that since being at the hospital she has had no further vomiting and nausea has improved. she has not moved her bowels in a few days, but prior to this, was not having issues. Allergies Allergy/AdvReac Type Severity Reaction Status Date / Time epinephrine Allergy Unknown . Verified 08/14/24 19:36 codeine AdvReac Intermediate NAUSEA/VOMI Verified 08/14/24 19:36 TING Home Medications Medication Instructions Recorded Confirmed Type levothyroxine 50 mcg tablet 0 mcg PO DAILY 07/22/19 08/15/24 History (Levoxyl) apixaban 2.5 mg tablet (Eliquis) 2.5 mg PO BID #180 tabs 04/23/23 08/14/24 Rx diltiazem HCl 120 mg capsule,24 120 mg PO DAILY #90 caps 04/27/24 08/14/24 Rx hr,extended release atenolol 50 mg tablet 0 mg PO DAILY 08/14/24 08/15/24 History Patient History Medical History (Updated 08/24/24 @ 14:14 by Fatmata King MD) Hyponatremia Hip pain, left Leukocytosis Confusion Surgical History (Updated 08/19/24 @ 00:07 by Jesse Baez) S/P hip hemiarthroplasty Social History Smoking Status: Never smoker Do You Dip or Chew Tobacco: No; Hx Alcohol Use: No Hx Substance Use: No Preferred Language: Luxembourgish Communication Ability: Effective News Commentator Required: No Beliefs That Will Affect Care: None Current Living Situation: Alone Feels Safe at Home: Yes Assistive Devices: None Review of Systems Review of Systems: All systems reviewed & are unremarkable except as noted in HPI & below Physical Exam Constitutional: WD/WN, vitals as above Respiratory: normal respiratory effort, lungs clear to auscultation Cardiovascular: Rate/Rhythm: regular rate and regular rhythm Gastrointestinal (Abdomen): mildly distended, no pain to palpation, no guarding, soft. Psychiatric: Orientation: alert and oriented x 3 Affect: euthymic affect Results & Data Vital Signs (Past 12 Hours) Vital Signs Temp Pulse Resp BP Pulse Ox O2 Del Method 08/24/24 14:01 86 08/24/24 13:33 83 22 08/24/24 13:00 116/73 08/24/24 13:00 90 17 08/24/24 12:33 118 H 18 96 08/24/24 12:30 136/76 08/24/24 12:24 87 17 99 08/24/24 12:12 97 H 21 99 08/24/24 11:31 136/90 08/24/24 11:12 23 08/24/24 11:03 102 H 21 92 08/24/24 11:00 140/80 08/24/24 10:57 92 H 17 97 08/24/24 10:38 103 H Room Air 08/24/24 10:33 96 H 17 90 08/24/24 10:30 132/101 H 08/24/24 10:25 85 08/24/24 10:24 110 H 15 08/24/24 10:24 145/83 H 08/24/24 10:00 96.8 F L 98 H 20 128/82 99 Room Air Coding Level of Care Code 71693 ER DEPT VISIT MOD LVL 4 Diagnoses Constipation K59.00
[2024-08-24] MEDS ORDERED: bisacodyL 10 MG SUPP PR SCH (14:30)
[2024-08-24] MEDS: METOCLOPRAMIDE HCL INJ 5 MG/ML 2 ML VIAL IV SCH (14:57)
[2024-08-24 15:00] LABS: Base Excess VBG -6.2 mEq/L; HCO3 VBG 20 mmol/L; Oxygen Saturation VBG < 60.0 %; PCO2 VBG 39 mmHg (38-50); PO2 VBG 27 mmHg; pH VBG 7.31 (7.36-7.41)
[2024-08-24 15:05] LABS: Appearance Urine Clear (Clear); Bacteria Urine Automated None Seen (None Seen); Bilirubin Urine Negative (Negative); Blood Urine Negative (Negative); Cast Urine Automated 0-2 /lpf (0-2); Color Urine Yellow; Glucose Urine UA Negative (Negative); Hyaline Casts Urine Present /lpf (None Presnt); Ketones Urine 3+ (Negative); Leukocyte Esterase Urine Negative (Negative); Nitrite Urine Negative (Negative); Protein Urine 1+ (Negative); RBC Urine Automated 0-2 /hpf (0-2); Specific Gravity Urine > 1.045 (1.000-1.030); Urobilinogen Urine Negative (Negative)
--- NOTE | 2024-08-24 15:16 | XRay Report ---
XR KUB/Abdomen 1 view CLINICAL HISTORY: NG insertion TECHNIQUE: 1 view of the abdomen was obtained. Comparison: Comparison is made to CT abdomen pelvis 08/24/2024 FINDINGS: Enteric tube terminates in the stomach. Degenerative changes are seen with extensive scoliosis. The b owel gas pattern is nonobstructive. A moderate amount of stool is noted within the large bowel. IMPRESSION: Satisfactory position of enteric tube. ACT 112: Negative or not required by law. Electronically signed by: Jim Omalley M.D. 08/24/2024 3:15 PM
[2024-08-24] MEDS: bisacodyL 10 MG SUPP PR SCH (15:28)
[2024-08-24] MEDS: D5W AND NSS 1,000 ML IV SCH (15:28)
[2024-08-24] MEDS ORDERED: ONDANSETRON INJ 2 MG/ML 2 ML VIAL IV PRN (17:23)
[2024-08-24] MEDS ORDERED: AMPICILLIN/SULBACTAM SOD 3,000 MG/100 ML BAG IV SCH (17:23)
--- OUTSIDE RECORDS SUMMARY | 2024-08-24 17:33 | External Medical Summary | Continuity of Care Document ---
Author Name Unknown Organization [facility] [id number] [place] [phone] Care Team Providers Care Egg Sorter Name Role Phone MarizaefraínAngelika zambrano Primary Care Physician [phone] Encounter [facility] [id number] Date(s): 08/18/24 - 08/18/24 [facility] 0 [facility] 207 [facility] [address] [address] [phone] Encounter Diagnosis Body mass index [BMI] 21.0-21.9, adult(Discharge Diagnosis) - 08/18/24 Discharge Disposition: Home or Self Care Attending Physician: MD Dominic, Talha Major Allergies, Adverse Reactions, Alerts Substance Criticality Severity Reaction Reaction Severity Status codeine Nausea Active EPINEPHrine Shortness of breath Active Immunizations Given and Recorded Vaccine Date Status Refusal Reason SARS-CoV-2 (COVID-19) mRNA-vacc - [id number] 06/13/24 Recorded SARS-CoV-2 (COVID-19) mRNA-vacc - [id number] 08/20/23 Recorded influenza virus vaccine, inactivated 05/24/24 Shayne rded influenza virus vaccine, inactivated 1 05/16/20 Re corded influenza virus vaccine, inactivated 2 06/07/19 Re corded influenza virus vaccine, inactivated 3 06/17/18 Re corded influenza virus vaccine, inactivated 06/23/17 Shayne rded RSV vaccine preF3, recombinant 09/02/23 Recorded SARS-CoV-2 mRNA (Pfizer 12+) bivalent 07/17/22 Rec orded SARS-CoV-2 (COVID-19) mRNA BNT-162b2 vax 06/21/21 Recorded SARS-CoV-2 (COVID-19) mRNA BNT-162b2 vax 11/17/20 Recorded SARS-CoV-2 (COVID-19) mRNA BNT-162b2 vax 10/27/20 Recorded zoster vaccine, inactivated 07/13/19 Given zoster vaccine, inactivated 03/26/19 Given pneumococcal 23-valent vaccine 01/23/17 Given pneumococcal 23-valent vaccine 03/01/02 Recorded pneumococcal 13-valent vaccine 01/02/15 Recorded zoster vaccine live 05/06/13 Recorded varicella virus vaccine 05/06/13 Recorded tetanus toxoids-diphtheria, Td (Adult) 07/10/09 Re corded 1Result Comment: exp 01/23/2021, 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, lot# [id number], IM/LD 2Location History: [facility] 3Location History: [facility] Pharmacy Medications atenolol 50 mg oral tablet 1 tab, PO, Daily, Disp# 60 tab, other Start Date: 11/17/17 Status: Ordered azithromycin 250 mg oral tablet Start: 08/18/24 11:35:00 AM EST, 1 tab, PO, Daily Start Date: 08/18/24 Status: Ordered cefdinir 300 mg oral capsule Start: 08/18/24 11:35:00 AM EST Start Date: 08/18/24 Status: Ordered Eliquis 2.5 mg oral tablet Start: 04/13/20 9:01:00 AM EDT, 1 tab, PO, bid Start Date: 04/13/20 Status: Ordered levothyroxine 50 mcg (0.05 mg) oral tablet Start: 08/19/23 11:00:00 AM EST, 1 tab, PO, Daily, Disp# 30 tab, Refills: 5, Pharmacy: [facility] STORE [id number] Start Date: 08/19/23 Status: Ordered ondansetron 4 mg oral tablet, disintegrating Start: 08/18/24 12:06:00 PM EST, 1 tab, PO, q8h, Disp# 12 tab, PRN: as needed for nausea/vomiting, Pharmacy: [facility]/pharmacy #[id number] Start Date: 08/18/24 Status: Ordered Tiadylt ER 120 mg/24 hours oral capsule, extended release Start: 11/20/21 11:10:00 AM EDT Start Date: 11/20/21 Status: Ordered traZODone 50 mg oral tablet Start: 01/06/24 10:18:00 AM EDT, 1 tab, PO, qhs, Disp# 30 tab, Refills: 5, Pharmacy: [facility]/pharmacy #[id number] Start Date: 01/06/24 Stop Date: 07/04/24 Status: Ordered Mental Status 08/18/24 Barriers to Learning one year None evide nt Mandatory Health Literacy Documentation Yes Health Literacy Communication Barriers N ever Primary Language Turkmen Problem List Condition Confirmation Course Effective Dates Status H ealth Status Informant AF (paroxysmal atrial fibrillation) Confirmed Active Chronic kidney disease (CKD) stage G3a/A3, moderately decreased glomerular filtration rate (GFR) between 45-59 mL/min/1.73 square meter and albuminuria creatinine ratio greater than 300 mg/g Confirmed Active Grade II diastolic dysfunction Confirmed Active Female stress incontinence Confirmed Active Personal history of breast cancer 1 Confirmed 2004 Active Personal history of colon cancer 2 Confirmed 2004 Active History of left hip hemiarthroplasty Confirmed Active Hyperlipidemia Confirmed Active Adult hypothyroidism Confirmed Active Incisional hernia Confirmed Active MVP (mitral valve prolapse) Confirmed Active Moderate mitral regurgitation Confirmed Active Osteoporosis Confirmed Active SVT (supraventricular tachycardia) Confirmed Active Tachycardia-bradycardi a syndrome Confirmed Active Vegetarian diet Confirmed Active 1s/p lumpectomy and radiation of right breast 2s/p colon resection Diagnosis Diagnosis Type Effective Dates Health Status Cl inical Service Informant Body mass index [BMI] 21.0-21.9, adult Discharge Diagnosis 08/18/24 Non-Specified Procedures Procedure Date Related Diagnosis Body Site Status Ultrasound scan of lower abdomen 1 12/25/23 Completed Chest x-ray 2 06/18/23 Completed Primary cemented hemiarthrop lasty of hip 3 06/18/23 Completed Mammogram 4 01/16/23 Completed Mammogram 5 01/15/22 Completed Mammogram 6 12/06/20 Completed Bone density scan 7 06/01/19 Compl eted Mammogram 8 04/27/19 Completed Mammogram 9 03/09/18 Completed Cardiac Ablation 10 12/24/17 Compl eted Chest x-ray 11 06/18/17 Completed Pacemaker, artificial 06/2017 Completed Mammogram 13 03/05/17 Completed Bone density scan 14 02/27/17 Comp leted Chest x-ray 15 11/13/16 Completed Chest x-ray 16 08/06/16 Completed Chest x-ray 17 06/30/16 Completed Laryngoscopy 18 04/10/16 Completed Colonoscopy 19 02/08/16 Completed Mammogram 20 11/13/15 Completed Mammogram 21 08/22/14 Completed Bone density scan 22 05/18/12 Comp leted Colonoscopy 23 01/08/12 Completed Colonoscopy 24 12/27/08 Completed Colonoscopy 25 10/07/05 Completed Partial mastectomy 05/17/05 Comple ceci Colonoscopy 26 09/11/04 Completed Colectomy 27 09/2004 Completed Colonoscopy 28 05/31/04 Completed Appendectomy 2000 Completed Hysterectomy and unilateral salpingo-oophorectomy sample 29 1995 Completed Chest x-ray Completed Lumpectomy of breast Comp leted Tonsillectomy Completed [address] [place] [address] Impression: 1. Bilateral incompletely reducible fat-containing inguinal hernias, right larger than left [address] [place] [address] Impression: 1. Cardiomegaly and cardiac pacemaker without radiographic evidence of congestive failure. 2. No airspace consolidation or large pleural effusion is identified 3[facility] 4[facility] Impression: ACR BI-RADS CATEGORY 2: BENIGN 1. No evidence of malignancy 5[facility] Impression: ACR BI-RADS CATEGORY 1: NEGATIVE 1. No evidence of malignancy 6IMPRESSION: ACR BI-RADS CATEGORY 2: BENIGN There is no mammographic evidence of malignancy. A 1 year screening mammogramis recommended. (12/07/2021) The patient will receive written notification of the results. 7[facility] Impression: 1. AP Spine L1-L4 T-score: -2.7 2. Femur neck left T-score: -3.0 3. Femur neck right T-score: -2.3 4. Femur total mean T-score: -2.4 5. Z-score -0.9 6. BMD is considered WNL relative to age. May be considered osteopenic or osteoporotic which is normal for age limit 8there is no mammographic evidence of malignancy 9WNL 10[facility] 11[facility] Impression: 1. No acute process 12Placement of left sided dual chamber pacemaker 13[facility] Impression: ACR BI-RADS CATEGORY 2: BENIGN 1. There is no mammographic evidence of malignancy. A 1 year screening is recommended 14[facility] Impression: 1. Femur neck left T score: -2.7 2. Femur neck right T score: -2.0 3. Femur total mean T score: -1.9 4. Right forearm T score: -0.2 5. Z score: -0.5 6. BMD considered within normal limits relative to patients age 15[facility] Impression: 1. No active disease in the chest 16Improving density left lateral costophrenic angle. Emphysematous change. A 3 month follow-up is suggested. 17[facility] Impression: 2.1 cm nodular opacity within the left lower lung. This could reflect minimal airspace disease, atelectasis, epicardial fat pad or pulmonary nodule. Follow up PA and lateral chest radiographs in one month are recommeneded. 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 No vocal cord masses or lesions. Vocal cord mobility was normal 19[facility] Impression: 1. Patent functional end-to-end ileo-colonic anastomosis, characterized by healty apperaing mucosa 2. Anal papilla(e) were hypertrophied 3. No specimens collected No repeat colonoscopy due to age 20[facility] Impression: Category 2 Benign Bilateral breasts: Benign, no evidence of malignancy. Follow up in 12 months is recommended 21[facility] Left Breast: Benign, no evidence of malignancy. Normal interval follow-up is recommended in 12 months Right Breast: Benign, no evidence of malignancy. Normal interal follow-up is recommended in 12 months 22[facility] 1. The fracture risk is low/moderate 2. The quality of the examination is good 3. Compared to a study done on 06/16/2007, there has been a significant decrease of 8.4% at the lumbar spine and a signifiacnt decrease of 7.3% at the total hip 23[facility] Impression: 1. Anal papilla(e) were hypertrophied 2. Patent functional end-to-end ileo-colonic anastomosis Repeat in 4 years 24[facility] Impression: 1. One 5 mm polyp in the proximal descending colon. Resected and retrieved 2. Patent end-to-side ileo-colonic anastomosis 3. Diverticulosis from sigmoid to descending colon 4. The examination was otherwise normal Repeat in 3 years 25[facility] Impression: 1. Ileo-colonic anastomosis in the surgical stoma 2. Diverticulosis Repeat in 3 years 26[facility] Impression: 1. One 30 mm polyp in the ascending colon at the side of previously removed villous adenoma with atypia. Biopsied and tattood 2. One 7 mm polyp in the hepatic dlexure. Resected and retrieved, area tattood 27Right radical colectomy w/ side to side anastamosis 28[facility] Impression: 1. One 30 mm polyp in the ascending colon. Resected and retrieved. 2. Diverticulosis 29right ovary remains 301. Cardiomegaly and cardiac pacemaker. There is no radiographic evidence of congestive failure. 2. No airspace consolidation or pleural effusion is identified. Vital Signs Most recent to oldest [Reference Range]: 1 Height 151 cm (08/18/24 11:36 AM) Patient Weight 49.7 kg (08/18/24 11:36 AM) Body Mass Index 21.8 kg/m2 (08/18/24 11:36 AM) Temperature [36.5-37.9 DegC] 36.8 DegC (08/18/24 11:36 AM) Heart Rate 88 bpm (08/18/24 11:36 AM) Respiratory Rate 12 br/min (08/18/24 11:36 AM) Blood Pressure 116/66mmHg (08/18/24 11:36 AM) Cuff Pulse Pressure 50 mmHg (08/18/24 11:36 AM) Social History Social History Type Response Smoking Status Never smoked cigaret bg Sex Female Sex Representation Female (finding) Patient Care team information Care Team Personnel Name: YASMEEN Clemens, Angelika Carrion Position: Physician Asst Puentes - Family Med Member Role: Primary Care Provider Address: [address] [place] [id number] [place] Care Team Related Persons Name: JOANNE PALMER Name: BAYLEE SAMUELS
[2024-08-24] MEDS: Patient's HEIGHT &/or WEIGHT Needed SCH (18:28)
[2024-08-24] MEDS: APIXABAN 2.5 MG TAB PO SCH (20:44)
[2024-08-24] MEDS: CHLORASEPTIC (PHENOL) 1.4% SOLN 180 ML BTL MT PRN (21:49)
[2024-08-25] MEDS: AMPICILLIN/SULBACTAM SOD 3,000 MG/100 ML BAG IV SCH (02:05)
[2024-08-25 08:48] LABS: Basophils # (auto) 0.05 K/uL (0.00-0.20); Basophils % (auto) 0.4 %; Eosinophils % (auto) 0.8 %; Hematocrit (blood only) 33.2 % (37.0-47.0); Hemoglobin 10.7 g/dl (12.0-16.0); Immature Granulocytes # (auto) 0.05 K/uL (0.01-0.20); Immature Granulocytes % (auto) 0.4 %; Lymphocytes # (auto) 1.28 K/uL (1.20-3.40); Lymphocytes % (auto) 10.4 %; Mean Corpuscular Hemoglobin 27.6 pg (25.0-34.0); Mean Corpuscular Hgb Conc 32.2 g/dL (32.0-36.0); Mean Corpuscular Volume 85.6 fL (80.0-100.0); Mean Platelet Volume 9.2 fL (9.4-12.4); Monocytes # (auto) 0.97 K/uL (0.11-0.59); Monocytes % (auto) 7.9 %; Neutrophils % (auto) 80.1 %; Platelet Count 413 K/uL (130-400); RDW Coefficient of Variation 14.5 % (11.5-14.5); RDW Standard Deviation 43.5 fL (36.4-46.3); Red Blood Count 3.88 M/uL (4.20-5.40); White Blood Count 12.25 K/ul (4.8-10.8)
[2024-08-25] MEDS ORDERED: LEVOTHYROXINE SODIUM 50 MCG TABLET PO SCH (09:00)
[2024-08-25] MEDS ORDERED: ATENOLOL 50 MG TABLET PO SCH (09:00)
[2024-08-25 09:03] LABS: Albumin Globulin Ratio 0.8 (0.9-2); Albumin Level 3.2 gm/dl (3.4-5.0); BUN Creatinine Ratio 18.3 (10-20); Bilirubin,Total 0.5 mg/dl (0.2-1.0); Creatinine Clr Calc Pharmacy 26.9 ml/min; Phosphorus 2.3 mg/dl (2.5-4.9); Potassium 3.7 mmol/L (3.5-5.1); Total Protein 7.2 gm/dl (6.0-8.3)
[2024-08-25 09:09] LABS: Prothrombin Time 10.8 Seconds (9.0-12.0)
[2024-08-25 09:16] LABS: Thyroid Stimulating Hormone 4.96 uIu/ml (0.300-4.500)
[2024-08-25 09:52] LABS: T4 Free Thyroxine 1.18 ng/dl (0.61-1.60)
--- NOTE | 2024-08-25 09:58 | XRay Report ---
KUB CLINICAL HISTORY: Gastric distention. COMPARISON STUDY: CT of the abdomen and pelvis and KUB August 24, 2024. FINDINGS: Incidental note is made of contrast within the bladder from recent contrast-enhanced CT. Mi ld left hydronephrosis with persistent contrast within the left collecting system and proximal left u reter is noted. Tip of nasogastric tube is within the distal body of the stomach. Although suboptimal ly assessed by radiography, gastric distention has likely improved. There is no evidence for a bowel obstruction. IMPRESSION: 1. Tip of nasogastric tube within the distal body of the stomach. Interval improvement of gastric dil atation. 2. Mild left hydronephrosis with asymmetric persistent opacification of the left collecting system an d proximal left ureter. This finding is indeterminate and a renal ultrasound in one month to ensure r esolution of left hydronephrosis is recommended. ACT 112: Negative or not required by law. Electronically signed by: Rommel Perkins M.D. 08/25/2024 9:56 AM
--- NOTE | 2024-08-25 10:07 | Gastroenterology Progress Note ---
Date of Service August 25, 2024 Assessment & Plan (1) Constipation: Plan: Patient feeling a little better today, though still has not moved bowels. no obstruction seen on KUB and some improvement in gastric dilation. - continue with NG at this time. - continue with Dulcolax 10mg BID suppositories. Admission and Anticipated Discharge Date Admission Date: August 24, 2024 Supervising Physician Co-Signing Physician Notes I personally saw and examined the patient. I have reviewed the chart and agree with the documentation provided by the SENIOR INFRASTRUCTURE ARCHITECT including discussion about the assessment, treatment and plan. Her NG tube has been clamped for the last 7 hours as she had minimal output after the initial change of her canister. Rehook NGT back up to suction to see if she is retaining fluid. If not, the nurse will text me and we will remove the tube and give her some magnesium citrate prior prior. Lets try milk of molasses enema as she is very constipated on the x-ray. She does have bowel sounds and does not appear obstructed. She is quite obstipated and constipated Subjective Patient tells me she feels a little better today. NG in place. no bowel movements as of yet. KUB 08/25 - Tip of nasogastric tube within the distal body of the stomach. Interval improvement of gastric dilatation. Mild left hydronephrosis with asymmetric persistent opacification of the left collecting system and proximal left ureter. This finding is indeterminate and a renal ultrasound in one month to ensure resolution of left hydronephrosis is recommended. Review of Systems Review of Systems: All systems reviewed & are unremarkable except as noted in HPI & below Physical Exam Constitutional: WD/WN, vitals as above Respiratory: normal respiratory effort, lungs clear to auscultation Cardiovascular: Rate/Rhythm: regular rate and regular rhythm Gastrointestinal (Abdomen): normal bowel sounds, soft, nontender, no hepatosplenomegaly Psychiatric: Orientation: alert and oriented x 3 Results & Data Results & Data Vital Signs (Past 12 Hours) Vital Signs Temp Pulse Pulse Resp BP Pulse Ox O2 Del Method 08/25/24 08:07 97.7 F 113 H 20 107/72 97 Room Air 08/25/24 03:05 98.1 F 101 H 18 121/74 98 Room Air 08/24/24 22:41 98.1 F 85 18 118/75 98 Room Air 08/24/24 22:17 100 H Coding Level of Care Code 71079 SUB INP/OBS CARE 10/02MIN Diagnoses Constipation K59.00
[2024-08-25] MEDS: dilTIAZem HCL 120 MG CAPCR PO SCH (10:39)
--- NOTE | 2024-08-25 10:45 | Hospitalist Progress Note ---
Date of Service August 25, 2024 Assessment & Plan (1) Constipation: Plan: Patient presents to the hospital with nausea and abdominal pain CT abdomen showed questionable gastric outlet obstruction NG tube was inserted Patient passing gas, but no BM yet Repeat KUB did not suggest obstruction will continue Dulcolax suppository per GI (2) Paroxysmal A-fib: Plan: s/p pacemaker continue Apixaban (3) S/P cardiac pacemaker procedure: Plan contiue to [facility] for BM Admission and Anticipated Discharge Date Admission Date: August 25, 2024 Subjective patient seen and examined, still has not had a BM, NG tube in situ Review of Systems Review of Systems: All systems reviewed are negative, apart from the ones contained in the history. Physical Exam Physical Exam: The patient is awake, alert and oriented 3, well developed and well nourished, normocephalic and atraumatic, lying in bed and in no acute distress. HEENT--PERRL, EOMI, mucous membranes and oropharynx mildly dry Neck--supple. No JVD. No bruits. Thyroid normal, trachea midline, no adenopathy. Heart--normal S1 and S2. No murmurs, rubs or gallops. Lungs--clear bilaterally, no respiratory distress, no accessory muscle use. Abdomen--normal bowel sounds and soft. Extremities--no cyanosis or clubbing. No edema. Dermatologic--normal skin turgor, normal color, no abnormal lymph nodes, no rash. Neurologic--cranial nerves II through XII grossly intact. Rheumatologic--normal range of motion. Psychiatric--normal affect. Results & Data Results & Data Vital Signs (Past 12 Hours) Vital Signs Temp Pulse Resp BP Pulse Ox O2 Del Method 08/25/24 08:07 97.7 F 113 H 20 107/72 97 Room Air 08/25/24 03:05 98.1 F 101 H 18 121/74 98 Room Air PG Care Time/CCT Total # of Minutes Spent Total Time Spent with Patient: Total time spent is greater than 50% in coordination of care (as documented) at patient's floor/unit and/or counseling patient: Coding Level of Care Code 25568 SUB INP/OBS CARE 2/35MIN Diagnoses Constipation K59.00 Paroxysmal A-fib I48.0 S/P cardiac pacemaker procedure Z95.0 Time Spent (min) 35
--- NOTE | 2024-08-25 11:39 | Billing Data ---
Date of Service August 24, 2024 Coding Level of Care Code 32761 INT INP/OBS CARE
[2024-08-25] MEDS: MAGNESIUM CITRATE 296 ML/BTL PO STA (16:52)
[2024-08-26] MEDS: ACETAMINOPHEN 325 MG TAB PO PRN (05:08)
--- NOTE | 2024-08-26 05:53 | Electrocardiogram Report ---
Test Reason : Blood Pressure : */* mmHG Vent. Rate : 99 BPM Atrial Rate : 115 BPM P-R Int : 154 ms QRS Dur : 62 ms QT Int : 354 ms P-R-T Axes : * 18 58 degrees QTcB Int : 454 ms Atrial-paced rhythm with occasional supraventricular complexes Low voltage QRS Cannot rule out Anterior infarct , age undetermined Abnormal ECG When compared with ECG of 18-Jun-2023 22:34, Electronic atrial pacemaker has replaced Sinus rhythm Confirmed by Gregorio Gilliland ([id number]) on 08/26/2024 5:53:07 AM Referred By: REFERRED SELF Confirmed By: Gregorio Gilliland
[2024-08-26 05:55] LABS: Basophils # (auto) 0.05 K/uL (0.00-0.20); Basophils % (auto) 0.5 %; Eosinophils % (auto) 0.9 %; Hematocrit (blood only) 30.4 % (37.0-47.0); Immature Granulocytes # (auto) 0.03 K/uL (0.01-0.20); Immature Granulocytes % (auto) 0.3 %; Lymphocytes # (auto) 1.04 K/uL (1.20-3.40); Lymphocytes % (auto) 9.4 %; Mean Corpuscular Hemoglobin 28.4 pg (25.0-34.0); Mean Corpuscular Hgb Conc 32.9 g/dL (32.0-36.0); Mean Corpuscular Volume 86.4 fL (80.0-100.0); Mean Platelet Volume 9.3 fL (9.4-12.4); Monocytes # (auto) 1.02 K/uL (0.11-0.59); Monocytes % (auto) 9.2 %; Neutrophils # (auto) 8.84 K/uL (1.40-6.50); Neutrophils % (auto) 79.7 %; Platelet Count 367 K/uL (130-400); RDW Coefficient of Variation 14.4 % (11.5-14.5); RDW Standard Deviation 43.4 fL (36.4-46.3); Red Blood Count 3.52 M/uL (4.20-5.40); White Blood Count 11.08 K/ul (4.8-10.8)
[2024-08-26 06:11] LABS: Albumin Globulin Ratio 0.9 (0.9-2); Albumin Level 2.9 gm/dl (3.4-5.0); BUN Creatinine Ratio 14.6 (10-20); Bilirubin,Total 0.4 mg/dl (0.2-1.0); Calcium 8.4 mg/dl (8.6-10.3); Creatinine Clr Calc Pharmacy 29.1 ml/min; Globulin 3.1 gm/dl (2.5-4.0); Potassium 3.3 mmol/L (3.5-5.1)
--- NOTE | 2024-08-26 09:28 | History & Physical Bridge Note ---
Date of Service August 26, 2024 History & Physical Bridge Note I have examined the patient, reviewed the History & Physical and in the interval since the performance of the History & Physical I have noted the following changes of clinical significance: no changes noted. patient had increased output last evening. patient tells me that she doesn't feel well and feels uncomfortable with NG tube. she had enema and suppositories yesterday but tells me she passed very little stool with this. - will plan for EGD today to further evaluate. Supervising Physician Co-Signing Physician Notes I personally saw and examined the patient. I have reviewed the chart and agree with the documentation provided by the LOGISTICS MANAGER including discussion about the assessment, treatment and plan.
--- NOTE | 2024-08-26 10:30 | Anesthesiology Consultation ---
Date of Service August 26, 2024 Assessment & Plan Chart Review Chart Review: Acceptable Risk for Surgery, Patient NOT seen in Pre Admission Testing and entry level sales associate initiated Consults Requested none Proposed Anesthesia Anesthesia Type: MAC History Surgery Operation Date: 08/26/24 16:45 Proposed Procedures p Esophagogastroduodenoscopy Mandy Galvan MD Height/Weight Height: 5 ft Weight: 48.2 kg Allergies Allergy/AdvReac Type Severity Reaction Status Date / Time epinephrine Allergy Unknown . Verified 08/14/24 19:36 codeine AdvReac Intermediate NAUSEA/VOMI Verified 08/14/24 19:36 TING Medications Home Medications Medication Instructions Recorded Confirmed Last Taken diltiazem HCl 120 mg capsule,24 120 mg PO DAILY #90 caps 04/27/24 08/24/24 Unknown hr,extended release apixaban 2.5 mg tablet (Eliquis) 0 mg PO BID 08/24/24 08/24/24 Unknown Active Medications Generic Name Dose Route Start Last Admin Trade Name Freq PRN Reason Stop Dose Admin Acetaminophen 650 mg 08/24/24 17:23 08/26/24 05:08 Acetaminophen 325 Mg Tab PO 09/23/24 17:22 650 mg Q4H PRN Administration Pain or Fever Apixaban 2.5 mg 08/24/24 21:00 08/26/24 08:23 Apixaban 2.5 Mg Tab PO 09/23/24 20:59 Not Given BID LOUIE Bisacodyl 10 mg 08/24/24 14:30 08/26/24 08:23 Bisacodyl 10 Mg Supp [place] 09/23/24 14:29 10 mg BID OLUIE Administration Diltiazem HCl 120 mg 08/25/24 09:00 08/26/24 08:23 Diltiazem Hcl 120 Mg Capcr PO 09/24/24 08:59 120 mg DAILY LOUIE Administration Ampicillin Sodium/Sulbactam Sodium 3,000 mg in 100 mls @ 200 mls/hr 08/25/24 02:00 08/26/24 03:33 Unasyn IV 08/27/24 01:59 Infused Q12H LOUIE Infusion Phenol 1 sprays 08/24/24 20:53 08/24/24 21:49 Chloraseptic (Phenol) 1.4% Soln 180 Ml Btl MT 09/23/24 20:52 1 sprays Q4H PRN Administration Sore Throat Past Medical History Medical History Hyponatremia Hip pain, left Leukocytosis Confusion Past Surgical History Surgical History S/P hip hemiarthroplasty Social History Smoking Status: Never smoker Do You Dip or Chew Tobacco: No Hx Alcohol Use: No Hx Substance Use: No substance use type: does not use Physical Exam Vital Signs Last Vital Signs Temp 36.4 C L 08/26/24 07:33 Pulse 93 H 08/26/24 07:33 Resp 20 08/26/24 07:33 BP 112/72 08/26/24 07:33 Pulse Ox 98 08/26/24 07:33 O2 Del Method Room Air 08/26/24 07:33 Testing Laboratory Results 08/26/24 05:33 08/26/24 05:33 PT 10.8 Seconds (9.0-12.0) 08/25/24 08:21 INR 1.0 (0.9-1.1) 08/25/24 08:21 APTT 24 Seconds (21-31) 08/24/24 10:27 Urine Color Yellow 08/24/24 14:35 Urine Appearance Clear (Clear) 08/24/24 14:35 Urine pH 5.0 (4.5-7.5) 08/24/24 14:35 Ur Specific [place] > 1.045 (1.000-1.030) H 08/24/24 14:35 Urine Protein 1+ (Negative) H 08/24/24 14:35 Urine Glucose (UA) Negative (Negative) 08/24/24 14:35 Urine Ketones 3+ (Negative) H 08/24/24 14:35 Urine Nitrite Negative (Negative) 08/24/24 14:35 Ur Leukocyte Esterase Negative (Negative) 08/24/24 14:35 Urine WBC (Auto) 6-10 /hpf (0-5) H 08/24/24 14:35 Urine RBC (Auto) 0-2 /hpf (0-2) 08/24/24 14:35 U Hyaline Cast (Auto) 0-2 /lpf (0-2) 08/24/24 14:35 U Epithel Cells (Auto) 3-5 /hpf (0-2) H 08/24/24 14:35 Urine Bacteria (Auto) None Seen (None Seen) 08/24/24 14:35 08/24/24 14:35 Urine Culture - Preliminary Urine,Clean Catch Enterococcus faecium 08/24/24 13:20 Aerobic Blood Culture - Preliminary Blood No growth in Aerobic bottle after 24 hours. Anaerobic Blood Culture - Preliminary No growth in Anaerobic bottle after 24 hours. 08/24/24 10:27 Aerobic Blood Culture - Preliminary Blood No growth in Aerobic bottle after 24 hours. Anaerobic Blood Culture - Preliminary No growth in Anaerobic bottle after 24 hours. Electrocardiogram Date: 08/24/24 Atrial paced @99 bpm Chest X-Ray Date: 08/14/24 COMPARISON: 06/18/2023 FINDINGS: Lungs and pleural spaces: There is a patchy infiltrate in the right lower lung likely the middle lobe. There is chronic airway and interstitial thickening. Probable trace right pleural effusion. No pneumothorax. Heart: Shape and configuration within normal limits allowing for technique. Mediastinum: Normal contour. Bones/joints: No fracture, erosion or dislocation. Soft tissues: No abnormality noted. No radiopaque foreign body noted. Tubes, lines and devices: Stable prominent cardiac shadow and pacer device. Upper abdomen: No abnormality noted. IMPRESSION: Patchy right infiltrate likely in the right middle lobe most concerning for pneumonia. Echocardiogram Date: 11/27/21 EF: 62 LV Function: normal Other Findings: + diastolic dysfunction (Grade II) Valvular Disease: + MR (mild)
--- NOTE | 2024-08-26 11:26 | Hospitalist Progress Note ---
Date of Service August 26, 2024 Assessment & Plan (1) Constipation: Plan: Patient presents to the hospital with nausea and abdominal pain CT abdomen showed questionable gastric outlet obstruction NG tube was inserted Patient passing gas, had a small BM today Repeat KUB did not suggest obstruction will continue Dulcolax suppository per GI (2) Gastric outlet obstruction: Plan: NG Tube in situ Plan is for EGD today (3) Pneumonia: Plan: Possible aspiration pneumonia in the setting of Gastric distention Leukocytosis , no fever CTA: right lower lobe opacity, improved from previous Unasyn 3g q6hr CBC AM (4) Hypothyroidism: Plan: TSH AM continue Synthroid (5) S/P cardiac pacemaker procedure: Plan: Dual chamber pacemaker Last seen electrophysiology on 07/19/2024. History of mitral regurgitation, tachybradycardia syndrome, SVT, and paroxysmal A-fib. This is well-controlled with pacemaker. Will continue on diltiazem 120 mg and Eliquis 2.5 twice daily. Will monitor on telemetry. (6) High anion gap metabolic acidosis: Plan: Suspected secondary to starvation ketones Lactate acid: normal Anion mis 17, Bicarb 20 VB.31 acidosis, CO2: 39 Ketones + on urine Magnesium and phosphorus ordered to monitor refeeding syndrome D5W/NSS 80 ml/hr will consult nutrition, due to concern of malnutrition (7) Paroxysmal A-fib: Plan: s/p pacemaker continue Apixaban Plan FEN: NPO Code status: Full code DVT ppx: Eliquis consult: Gastroenterology Dispo:Telemetry Admission and Anticipated Discharge Date Admission Date: August 25, 2024 Subjective patient seen and examined,had a small BM, NG tube in situ, plan is for EGD today Review of Systems Review of Systems: All systems reviewed are negative, apart from the ones contained in the history. Physical Exam Physical Exam: The patient is awake, alert and oriented 3, well developed and well nourished, normocephalic and atraumatic, lying in bed and in no acute distress. HEENT--PERRL, EOMI, mucous membranes and oropharynx mildly dry Neck--supple. No JVD. No bruits. Thyroid normal, trachea midline, no adenopathy. Heart--normal S1 and S2. No murmurs, rubs or gallops. Lungs--clear bilaterally, no respiratory distress, no accessory muscle use. Abdomen--normal bowel sounds and soft. Extremities--no cyanosis or clubbing. No edema. Dermatologic--normal skin turgor, normal color, no abnormal lymph nodes, no rash. Neurologic--cranial nerves II through XII grossly intact. Rheumatologic--normal range of motion. Psychiatric--normal affect. Results & Data Results & Data Vital Signs (Past 12 Hours) Vital Signs Temp Pulse Pulse Resp BP Pulse Ox O2 Del Method 08/26/24 11:22 98.8 F 99 H 20 94/66 L 93 Room Air 08/26/24 10:28 Room Air 08/26/24 07:33 97.5 F L 93 H 20 112/72 98 Room Air 08/26/24 07:12 80 08/26/24 03:26 98.1 F 81 16 108/68 98 Room Air 08/26/24 02:53 154 H PG Care Time/CCT Total # of Minutes Spent Total Time Spent with Patient: Total time spent is greater than 50% in coordination of care (as documented) at patient's floor/unit and/or counseling patient: Coding Level of Care Code 64702 SUB INP/OBS CARE 2/35MIN Diagnoses Constipation K59.00 Gastric outlet obstruction K31.1 Pneumonia J18.9 Laterality: unspecified laterality Lung location: unspecified part of lung Pneumonia type: due to unspecified organism Hypothyroidism E03.9 S/P cardiac pacemaker procedure Z95.0 High anion gap metabolic acidosis E87.29 Paroxysmal A-fib I48.0 Time Spent (min) 35 (3) Pneumonia Laterality: unspecified laterality Lung location: unspecified part of lung Pneumonia type: due to unspecified organism Qualified Code(s): J18.9 - Pneumonia, unspecified organism
--- NOTE | 2024-08-26 14:49 | Anesthesiology Progress Note ---
Date of Service August 26, 2024 Anesthesia Post Procedure Vital Signs Vital Signs: Temp Pulse Pulse Resp BP Pulse Ox O2 Del Method 08/26/24 14:42 102 H 18 134/85 98 Room Air 08/26/24 14:27 88 18 136/74 96 Room Air 08/26/24 14:15 91 H 08/26/24 13:16 36.8 C 91 H 16 126/81 98 Room Air 08/26/24 11:22 37.1 C 99 H 20 94/66 L 93 Room Air 08/26/24 10:28 Room Air 08/26/24 07:33 36.4 C L 93 H 20 112/72 98 Room Air 08/26/24 07:12 80 08/26/24 03:26 36.7 C 81 16 108/68 98 Room Air 08/26/24 02:53 154 H 08/25/24 23:13 36.5 C 80 16 110/70 95 Room Air 08/25/24 21:52 84 08/25/24 19:37 36.6 C 105 H 16 114/78 97 Room Air 08/25/24 16:07 36.4 C L 95 H 20 103/76 98 Room Air Pain Intensity Throat: Pain Intensity: 10 Transfer of Care Handoff Completed per policy Notes Mental Status: alert / awake / arousable and participated in evaluation Patient Amnestic to Procedure: Yes Nausea / Vomiting: adequately controlled Pain: adequately controlled Airway Patency, RR, SpO2: stable & adequate BP & HR: stable & adequate Hydration State: stable & adequate Anesthetic Complications: no major complications apparent
--- NOTE | 2024-08-26 14:59 | GI REPORT ---
[facility] Patient: JENNIFER SALDANA : 1935 Sex at : Female Age: 89 Years Procedure: Upper GI endoscopy Date: 08/26/2024 Attending Physician: Yves Galvan MD Referring MD: Angelika Clemens Indications: - Nausea with vomiting - Gastric outlet obstruction on CT Medications: - Monitored Anesthesia Care Complications: - No immediate complications. Estimated Blood Loss: - Estimated blood loss: None. - Estimated blood loss was minimal. Procedure: - Prior to the procedure, a History and Physical was performed, and patient medications and allergies were reviewed. The patient's tolerance of previous anesthesia was also reviewed. The risks and benefits of the procedure and the sedation options and risks were discussed with the patient. All questions were answered, and informed consent was obtained. Prior Anticoagulants: The patient has taken Eliquis (apixaban), last dose was 1 day prior to procedure. ASA Grade Assessment: III - A patient with severe systemic disease. After reviewing the risks and benefits, the patient was deemed in satisfactory condition to undergo the procedure. - The egd scope was introduced through the mouth and advanced to the third part of the duodenum. - The upper GI endoscopy was accomplished without difficulty. - The patient tolerated the procedure well. Findings: - A small hiatal hernia was present. - Patchy mild inflammation characterized by erythema was found in the gastric body. - A medium-sized, ulcerated, circumferential mass with oozing bleeding was found in the gastric antrum. Biopsies were taken with a cold forceps for histology. Estimated blood loss was minimal. Antrum is deformed with circumferential mass noted that is causing partial GOO. Mass is ulcerated and edematous and narrows antrum drastically. after going thru the mass, the pylorus is wide open. - A medium amount of food (residue) was found in the gastric body. I was able to suction most of the liquid and much of the semisolid residue. Some left. - The examined duodenum was normal. Impression: - Small hiatal hernia. - Acute gastritis, characterized by erythema. - Rule out malignancy, gastric tumor in the gastric antrum. Biopsied. - Antrum is deformed with circumferential mass noted that is causing partial GOO. Mass is ulcerated and edematous and narrows antrum drastically. after going thru the mass, the pylorus is wide open. - A medium amount of food (residue) in the stomach. - I was able to suction most of the liquid and much of the semisolid residue. Some left. - Normal examined duodenum. Recommendation: - Discharge patient to home (ambulatory). - Resume previous diet. - Continue present medications. - Await pathology results. - Return to primary care physician as previously scheduled. - Patient has a contact number available for emergencies. The signs and symptoms of potential delayed complications were discussed with the patient. Return to normal activities tomorrow. Written discharge instructions were provided to the patient. - NPO, TPN, low threshold to replace NGT if any nausea or emesis. She needs tertiary care facility transfer for consideration of gastric bypass for possible malignancy. Procedure Code(s): - 07098, Esophagogastroduodenoscopy, flexible, transoral; with biopsy, single or multiple Diagnosis Code(s): - R11.2, Nausea with vomiting, unspecified - K44.9, Diaphragmatic hernia without obstruction or gangrene - K29.00, Acute gastritis without bleeding - D49.0, Neoplasm of unspecified behavior of digestive system CPT(R) - 2023 copyright [employer]. All Rights Reserved. The CPT codes, CCI edits and ICD codes generated are intended as suggestions and were generated based on input data. These codes are preliminary and upon adding machine operator review may be revised to meet current compliance and payer requirements. The provider is responsible for the final determination of appropriate codes, and modifiers. Yves Galvan MD This document has been electronically signed. Note Initiated:08/26/2024 Note Completed:08/26/2024 2:58 PM [email or web address]\Data\Provation\Results\LIVE\[id number]
--- NOTE | 2024-08-26 16:46 | CT Scan Report ---
EXAMINATION: Abdomen and pelvis CT without CLINICAL HISTORY: Rule out metastatic disease PRIORS: Comparison 08/24/2024 TECHNIQUE: Contiguous axial images were obtained through the abdomen and pelvis without the use of intravenous contrast. Sagittal and coronal reformations are supplied. FINDINGS: Examination is extremely limited without the use of intravenous contrast. Lung bases are unchanged. Allowing for the absence of intravenous contrast, the liver, pancreas, spleen, adrenals, and kidneys are morphologically unremarkable. The stomach is distended, less so than on the prior exam. Moderate antrum and pyloric wall thickening present and not further characterized. Please correlate with pathology results. Multiple gallstones present in the gallbladder lumen. No ascites or omental implants are identified. A large amount of formed stool present in the colon. No pericolonic inflammatory change or dilated loops of bowel. Postsurgical change of the colon in the right lower quadrant. A left total hip arthroplasty is present creating significant beam hardening artifact. Urinary bladder distended with intravenous contrast, possibly from the prior examination. No free fluid or adenopathy in the pelvis. Moderate atherosclerotic disease of the aorta. In bone windows, osseous demineralization noted with moderate lumbar scoliosis. No suspicious osseous abnormality. IMPRESSION: Allowing for noncontrast enhanced technique, no CT evidence of metastatic disease at this time. Close clinical correlation suggested. ACT 112: Positive. There are findings on this examination that require communication between the performing entity and the patient following Patient Test Result Information Act ([place] ACT 112) guidelines. Electronically signed by Reina Hawthorne 08-26-2024 4:46 PM
--- NOTE | 2024-08-26 16:58 | CT Scan Report ---
EXAMINATION: Chest CT without CLINICAL HISTORY: Rule out metastatic disease, primary malignancy not supplied COMPARISON: 08/24/2024 TECHNIQUE: Contiguous axial images were obtained through the chest without the use of intravenous contrast. Sagittal and coronal reformations are supplied. FINDINGS: The chest is well-expanded. Hypoventilatory changes at the lung bases. Focal ground glass attenuation present in the right lower lobe without a discrete mass. Mild traction bronchiectasis in the right middle lobe. Biapical pleural-parenchymal scarring. No dominant mass or adenopathy. A calcified granuloma present in the left lung. Atelectasis present at the right lung base. Trachea and mainstem bronchi patent. No mucous plugging. Trachea is calcified. No adenopathy in the chest. Allowing for noncontrast enhanced technique, ascending aorta measures 3.7 x 3.7 centimeter at the level of the main pulmonary artery. Descending aorta measures 2.7 cm at this level. No pericardial effusion. Heart size is not enlarged. Advanced atherosclerotic disease of the aorta. A left-sided implantable chest device is noted with leads terminating in the heart. No axillary adenopathy. In bone windows, moderate osseous demineralization and kyphosis present. No high-grade compression fracture. No suspicious osseous abnormality. Moderate thoracic scoliosis is present. IMPRESSION: 1. No CT evidence of metastatic disease, allowing for noncontrast enhanced technique. Please correlate with known primary malignancy. Electronically signed by Reina Hawthorne 08-26-2024 4:58 PM
[2024-08-26] MEDS: LIDOCAINE 2% 2 ML VIAL/AMP(20MG/ML) INFIL ONE (17:11)
[2024-08-26] MEDS: PROPOFOL IV EMULSION 10 MG/ML 20 ML VIAL IV ONE (17:11)
[2024-08-26] MEDS ORDERED: DEXTROSE 10% 1,000 ML IV PRN (17:53)
[2024-08-26] MEDS ORDERED: TPN/PPN CONSULT PHARMACY PRN (18:03)
[2024-08-26] MEDS: D5W AND NSS 1,000 ML IV SCH (18:26)
[2024-08-27 05:32] LABS: Basophils # (auto) 0.07 K/uL (0.00-0.20); Basophils % (auto) 0.7 %; Echinocytes 1+; Eosinophils # (auto) 0.14 K/uL (0.00-0.50); Eosinophils % (auto) 1.3 %; Hematocrit (blood only) 32.8 % (37.0-47.0); Hemoglobin 10.2 g/dl (12.0-16.0); Immature Granulocytes # (auto) 0.05 K/uL (0.01-0.20); Immature Granulocytes % (auto) 0.5 %; Lymphocytes # (auto) 0.98 K/uL (1.20-3.40); Lymphocytes % (auto) 9.3 %; Mean Corpuscular Hemoglobin 28.2 pg (25.0-34.0); Mean Corpuscular Hgb Conc 31.1 g/dL (32.0-36.0); Mean Corpuscular Volume 90.6 fL (80.0-100.0); Mean Platelet Volume 9.7 fL (9.4-12.4); Monocytes # (auto) 0.84 K/uL (0.11-0.59); Monocytes % (auto) 7.9 %; Neutrophils # (auto) 8.51 K/uL (1.40-6.50); Neutrophils % (auto) 80.3 %; Platelet Count 316 K/uL (130-400); Platelet Estimate Normal (Normal); RDW Coefficient of Variation 14.8 % (11.5-14.5); RDW Standard Deviation 47.5 fL (36.4-46.3); Red Blood Count 3.62 M/uL (4.20-5.40); White Blood Count 10.59 K/ul (4.8-10.8)
--- NOTE | 2024-08-27 09:18 | Gastroenterology Progress Note ---
Date of Service August 27, 2024 Assessment & Plan (1) Gastric mass: Plan: 89 year old female w. history of afib, tachy-marcela syndrome, s/p cardiac pace maker, hypothyroidism and others below s/p EGD w/ circumferential gastric mass causing a partial GOO. Await Bx results Consider transfer to a tertiary center for consideration of surgical intervention NPO TPN If she develops nausea/vomiting, NGT to LIS I spent a total of 40 minutes on the date of service in review of patient's record, and previously obtained information in person and appropriate medical visit, discussion and education of plan, with patient and/or caregiver, placing orders for tests/referral/procedures as medically necessary and documentation of pertinent clinical information in patient's medical records for their visit today. Admission and Anticipated Discharge Date Admission Date: August 25, 2024 Supervising Physician Co-Signing Physician Notes I personally saw and examined the patient. I have reviewed the chart and agree with the documentation provided by the GRADUATE RECRUITER including discussion about the assessment, treatment and plan. The biopsies of the gastric antral stricture were negative for malignancy at this point. The patient needs an EUS and possible stent versus gastric revision of this stricture as it is leading to a gastric outlet obstruction. This cannot be done here at [facility] and we should transfer her to a tertiary care facility. Subjective Pt was seen and evaluated, chart reviewed. EGD w/ circumferential gastric mass causing a partial GOO. Biopsies pending. Notes this AM she is pain free, w/o nausea/vomiting. Discussed transfer for surgical intervention, she was interested in this and will discuss w/ her family. EGD 2023: Small hiatal hernia. - Acute gastritis, characterized by erythema. - Rule out malignancy, gastric tumor in the gastric antrum. Biopsied. - Antrum is deformed with circumferential mass noted that is causing partial GOO. Mass is ulcerated and edematous and narrows antrum drastically. after going thru the mass, the pylorus is wide open. - A medium amount of food (residue) in the stomach. - I was able to suction most of the liquid and much of the semisolid residue. Some left. - Normal examined duodenum. Review of Systems Review of Systems: All other findings negative except as noted in HPI. Physical Exam Constitutional: WD/WN, vitals as above Respiratory: normal respiratory effort, lungs clear to auscultation Cardiovascular: RRR, no murmur, no edema Gastrointestinal (Abdomen): normal bowel sounds, soft, nontender, no hepatosplenomegaly Skin: no rashes, warm and dry Results & Data Results & Data Vital Signs (Past 12 Hours) Vital Signs Temp Pulse Pulse Resp BP Pulse Ox O2 Del Method 08/27/24 08:00 36.6 C 103 H 20 116/75 98 Room Air 08/27/24 03:46 36.6 C 86 16 111/71 99 Room Air 08/26/24 23:51 36.4 C L 95 H 16 111/69 98 Room Air 08/26/24 22:29 96 H Laboratory Results 08/27/24 08/27/24 08/27/24 Range/Units 05:50 04:07 00:16 WBC 10.59 (4.8-10.8) K/ul RBC 3.62 L (4.20-5.40) M/uL Hgb 10.2 L (12.0-16.0) g/dl Hct 32.8 L (37.0-47.0) % MCV 90.6 (80.0-100.0) fL MCH 28.2 (25.0-34.0) pg MCHC 31.1 L (32.0-36.0) g/dL RDW Std Deviation 47.5 H (36.4-46.3) fL RDW Coeff of Rk 14.8 H (11.5-14.5) % Plt Count 316 (130-400) K/uL MPV 9.7 (9.4-12.4) fL Immature Gran % (Auto) 0.5 % Neut % (Auto) 80.3 % Lymph % (Auto) 9.3 % [place] % (Auto) 7.9 % Eos % (Auto) 1.3 % Baso % (Auto) 0.7 % Neut # (Auto) 8.51 H (1.40-6.50) K/uL Lymph # (Auto) 0.98 L (1.20-3.40) K/uL [place] # (Auto) 0.84 H (0.11-0.59) K/uL Eos # (Auto) 0.14 (0.00-0.50) K/uL Baso # (Auto) 0.07 (0.00-0.20) K/uL Immature Gran # (Auto) 0.05 (0.01-0.20) K/uL Platelet Estimate Normal (Normal) Echinocytes 1+ POC Glucose 116 H 117 H (70-99) mg/dl 08/26/24 Range/Units 18:28 WBC (4.8-10.8) K/ul RBC (4.20-5.40) M/uL Hgb (12.0-16.0) g/dl Hct (37.0-47.0) % MCV (80.0-100.0) fL MCH (25.0-34.0) pg MCHC (32.0-36.0) g/dL RDW Std Deviation (36.4-46.3) fL RDW Coeff of Rk (11.5-14.5) % Plt Count (130-400) K/uL MPV (9.4-12.4) fL Immature Gran % (Auto) % Neut % (Auto) % Lymph % (Auto) % [place] % (Auto) % Eos % (Auto) % Baso % (Auto) % Neut # (Auto) (1.40-6.50) K/uL Lymph # (Auto) (1.20-3.40) K/uL [place] # (Auto) (0.11-0.59) K/uL Eos # (Auto) (0.00-0.50) K/uL Baso # (Auto) (0.00-0.20) K/uL Immature Gran # (Auto) (0.01-0.20) K/uL Platelet Estimate (Normal) Echinocytes POC Glucose 88 (70-99) mg/dl PG Care Time/CCT Total # of Minutes Spent Total Time Spent with Patient: Total time spent is greater than 50% in coordination of care (as documented) at patient's floor/unit and/or counseling patient: Coding Level of Care Code 82789 SUB INP/OBS CARE 2/35MIN Diagnoses Gastric mass K31.89
--- NOTE | 2024-08-27 10:29 | XRay Report ---
KUB HISTORY: Status post placement of an enteric tube NG tube placed COMPARISON: CT 08/26/2024 FINDINGS: Distal tip of enteric tube projects over the gastric body. There is mild gaseous distention of the stomach. Cardiomegaly with partially imaged pacer leads. Cholelithiasis. No significant small bowel distention. No renal calculi. No ureteral calculi. No pneumoperitoneum or pneumatosis. Left h ip arthroplasty. No fracture. IMPRESSION: 1. Mild gaseous distention of the stomach redemonstrated with distal tip of enteric tube projected ov er the gastric body. 2. Cholelithiasis. ACT 112: Negative or not required by law. The above report was generated using voice recognition software. It may contain grammatical, syntax o r spelling errors. Electronically signed by: Artur Marshall M.D. 08/27/2024 10:28 AM
--- NOTE | 2024-08-27 10:29 | Discharge Summary ---
Date of Service August 27, 2024 Admission HPI Per Admitting Provider 89 y/o with PMH of Afib s/p cardiac pace maker, hypothyroidism here due to nausea, vomiting and general weakness. she refers last bowel movement was 4 days ago. She started having vomiting and nausea today. Had 2 big vomiting episodes. She was recently admitted to our service due to pneumonia. she was discharge with antibiotics which she finished them last week. She refers eating and drinking less water than usual. And had been feeling very weak and tired. Her nausea resolved after IV Zofran in the Ed. She refers burping a lot. Denied any blood on stools. Denied any chest pain, SOB, palpitation, fever, cough, runny, nose, chills, dizziness or any other symptoms. she has history of colon cancer with s/p partial colectomy 15 years ago, no chemo or radiation. She has a history of breast cancer, required surgery and radiation more than 30 years ago. she lives alone, take care of her self Ed course: Iv zofran.Unasyn 3 g IV Lab remarkable with: leukocytosis of 14.66, Hgb of 11.5. High anion metabolic acidosis: Anion gap of 17, Bicarb 20. Hyponatremia of 132. Lipase of 119. UA positive for ketones 3+ and WBC. VBG: PH 7.31, PCO2: 39, HCO3 [address] showed extensive stomach distention with thickening of the pylorus, correlation of gastric outlet obstruction. Admission Exam (Per Admitting) Constitutional The patient is awake, alert and oriented 3, well developed and well nourished, normocephalic and atraumatic, lying in bed and in no acute distress. HEENT--PERRL, EOMI, mucous membranes and oropharynx mildly dry Neck--supple. No JVD. No bruits. Thyroid normal, trachea midline, no adenopathy. Heart--normal S1 and S2. No murmurs, rubs or gallops. Lungs--clear bilaterally, no respiratory distress, no accessory muscle use. Abdomen--normal bowel sounds and soft. Extremities--no cyanosis or clubbing. No edema. Dermatologic--normal skin turgor, normal color, no abnormal lymph nodes, no rash. Neurologic--cranial nerves II through XII grossly intact. Rheumatologic--normal range of motion. Psychiatric--normal affect. Discharge Data Consultations 08/24/24 13:35 ED Decision to Admit Stat 08/24/24 17:23 Consult Gastroenterology Routine 08/26/24 15:44 Consult Palliative Care Routine Procedures Performed Operation Date: 08/26/24 16:45 Actual Procedures p EGD Biopsy Cytology - Yves Galvan MD Hospital Course (1) Gastric outlet obstruction: Patient presents to the hospital with nausea and abdominal pain CT abdomen showed gastric outlet obstruction secondary to antral mass as seen on EGD Preliminary pathology not concerning for malignancy NG Tube in situ Transfer to [facility] (2) Pneumonia: Possible aspiration pneumonia in the setting of Gastric distention Leukocytosis , no fever CTA: right lower lobe opacity, improved from previous Unasyn 3g q6hr CBC AM (3) Hypothyroidism: TSH AM continue Synthroid (4) Constipation: will continue Dulcolax suppository per GI (5) S/P cardiac pacemaker procedure: Dual chamber pacemaker Last seen electrophysiology on 07/19/2024. History of mitral regurgitation, tachybradycardia syndrome, SVT, and paroxysmal A-fib. This is well-controlled with pacemaker. Will continue on diltiazem 120 mg and Eliquis 2.5 twice daily. Will monitor on telemetry. (6) High anion gap metabolic acidosis: Suspected secondary to starvation ketones Lactate acid: normal Anion mis 17, Bicarb 20 VB.31 acidosis, CO2: 39 Ketones + on urine Magnesium and phosphorus ordered to monitor refeeding syndrome D5W/NSS 80 ml/hr will consult nutrition, due to concern of malnutrition (7) Paroxysmal A-fib: s/p pacemaker continue Apixaban Plan Transfer to [facility] Coding Level of Care Code 07357 INP/OBS DISCH >30 MIN Diagnoses Gastric outlet obstruction K31.1 Pneumonia J18.9 Laterality: unspecified laterality Lung location: unspecified part of lung Pneumonia type: due to unspecified organism Hypothyroidism E03.9 Constipation K59.00 S/P cardiac pacemaker procedure Z95.0 High anion gap metabolic acidosis E87.29 Paroxysmal A-fib I48.0 Time Spent (min) 35
[2024-08-27 11:11] LABS: Calcium 8.2 mg/dl (8.6-10.3); Magnesium 1.9 mg/dl (1.7-2.4); Potassium 3.5 mmol/L (3.5-5.1)
[2024-08-27 11:17] LABS: BUN Creatinine Ratio 14.4 (10-20); Phosphorus 2.8 mg/dl (2.5-4.9)
[2024-08-27 11:41] VITALS: BP 123/77; PULSE 84; RESP 18; TEMP 98.1; O2SAT 94
== END 2024-08-27 12:51 | disposition short-term general hospital (02) | DRG 380 ==
LOC: ED 09:51 → 2N 09:51 → SUATTDRO 14:05 → 2N 16:07